=== PATIENT | female | born 1950 | race Caucasian/White ===

== ENCOUNTER 2016-04-26 18:42 | Emergency (ER) | payer MEDICARE, MEDICAID ==
[~2016-04-26] VITALS: Wt 45.4 kg
[~2016-04-26 18:42] MED LIST: ALBUTEROL SULF0.5 ML INH; AMOXICILLIN500 M2 PO; ATROVENT I0.5 MG/2.5 INH; Augmentin Xr 101 TER PO; DOXYCYCLINE HY100 M5 PO; DUONEB 3 MG/3 ML3 M1 INH; LEVO-T112 MCG PO; LEVO-T88 MCG PO; LEVOFLOXACIN500 MG PO; MEGACE400 MG/10 PO; MEGESTROL ACETAT1 OZ PO; MINOCYCLINE HC100 MG PO; MUCINEX ER600 MG PO; MULTI VITAMINS1 TAB PO; NEBULIZER; NEOMYCIN OP; NICODERM C14 MG/241 T; NICOTINE T21 MG/24 H TD; NICOTINE TRANSD1 TDM TD; OXYCODONE HCL5 MG PO; POLY B OP; PREDNISONE10 MG PO; PROAIR HFA8.5 GM INH; SPIRIVA18 MCG PO; SYMBICORT1 AE1 INH; SYNTHROID,LEV125 MCG PO; SYNTHROID,LEVO88 MCG PO; Tobrex Ophth S2.5 ML OPH; VENTOLIN H0.09 MG/AC INH; VISTARIL25 MG PO; ZITHROMAX250 MG PO; [UNRECOGNIZED DRUG - OTHER] OP
[2016-04-26] MEDS ORDERED: CEPHALEXIN500 M1 PO (19:21)
[2016-06-06] MEDS ORDERED: FLONASE ALLERG9.9 ML NAS (17:19)
[2016-06-06] MEDS ORDERED: PREDNISONE10 MG PO (17:19)
[2016-06-06] MEDS ORDERED: CLARITIN10 MG PO (17:19)
== END 2016-04-26 19:35 | disposition home or self-care (01) ==
LOC: ED 18:42
DX: T85.698A Other mechanical complication of other specified internal prosthetic devices, implants and grafts, initial encounter (principal); K94.23 Gastrostomy malfunction; Z87.891 Personal history of nicotine dependence; Z98.890 Other specified postprocedural states; Z90.49 Acquired absence of other specified parts of digestive tract; Y92.9 Unspecified place or not applicable

== ENCOUNTER 2016-08-22 17:08 | Emergency (ER) | payer MEDICARE, MEDICAID ==
[~2016-08-22] VITALS: Wt 49.9 kg
[~2016-08-22 17:08] MED LIST changes: +CEPHALEXIN500 M1 PO; +CLARITIN10 MG PO; +FLONASE ALLERG9.9 ML NAS
[2016-08-22] MEDS ORDERED: ACETAZOLAMIDE250 MG PEG (17:26)
[2016-08-22] MEDS ORDERED: CELEXA10 MG PEG (17:27)
[2016-08-22] MEDS ORDERED: FER-IN-SOL75 MG/0.6 PEG (17:27)
[2016-08-22] MEDS ORDERED: LANSOPRAZOLE30 MG PEG (17:28)
[2016-08-22] MEDS ORDERED: PREDNISONE10 MG PEG (17:32)
[2016-08-22] MEDS ORDERED: Synthroid,Lev125 MCG PEG (17:32)
[2016-08-22] MEDS ORDERED: DAILY VALUE1 EACH PEG (17:33)
[2016-08-22] MEDS ORDERED: VENLAFAXINE HYD50 MG PEG (17:33)
[2016-08-22] MEDS ORDERED: OXYGEN NAS (17:34)
[2016-08-22] MEDS ORDERED: ALBUTEROL SUL0.25 ML INH (17:34)
[2016-08-22 17:48] LABS: HEMATOCRIT 29.1 % (37.0-47.0); HEMOGLOBIN 9.5 g/dl (12.0-16.0); MEAN CELL VOLUME 95.7 fl (81.0-99.0); MEAN CORPUSCULAR HGB 31.3 pg (27.0-31.0); MEAN CORPUSCULAR HGB CONC 32.6 g/dl (33.0-37.0); MEAN PLATELET VOLUME 9.7 fl (9.6-12.3); PLATELET COUNT AUTOMATED 248 10*3/uL (130-400); RED BLOOD COUNT 3.04 10*6/uL (4.10-5.10); RED CELL DISTRI WIDTH 15.4 % (0-14.5); WHITE BLOOD COUNT 3.9 10*3/uL (4.8-10.8)
[2016-08-22 18:01] LABS: BUN 19 mg/dl (7-24); CARBON DIOXIDE 28 mmol/L (21-32); CHLORIDE 100 mmol/L (98-107); EST GLOM FILT AFRICAN AMERICAN > 60 ml/min; GLUCOSE 86 mg/dL (65-99); POTASSIUM 4.2 mmol/L (3.5-5.1); SODIUM 136 mmol/L (136-145)
[2016-08-22 18:11] LABS: BASOPHIL # 0.1 10*3/uL (0-0.1); BASOPHILS 2 % (0-1); LYMPHOCYTE # 0.2 10*3/uL (1.3-4.4); METAMYELOCYTES 1 % (0-0); MONOCYTE # 0.6 10*3/uL (0.1-1.0); NEUTROPHILS 78 % (47-73); TOTAL CELLS COUNTED 100 #CELLS
[2016-08-22 18:12] LABS: PLATELET SUFFICIENCY NORMAL (NORMAL); POLYCHROMASIA SLIGHT
== END 2016-08-22 18:50 | disposition home or self-care (01) ==
LOC: ED 17:08
PROVIDERS: Family Medicine
DX: R06.00 Dyspnea, unspecified (principal); F41.9 Anxiety disorder, unspecified; J44.1 Chronic obstructive pulmonary disease with (acute) exacerbation; E03.9 Hypothyroidism, unspecified; D64.9 Anemia, unspecified; F17.200 Nicotine dependence, unspecified, uncomplicated; Z85.21 Personal history of malignant neoplasm of larynx; Z98.890 Other specified postprocedural states; Z90.89 Acquired absence of other organs; Z79.899 Other long term (current) drug therapy

== ENCOUNTER 2016-08-25 14:50 | Emergency (ER) | payer MEDICARE, MEDICAID ==
[~2016-08-25] VITALS: Ht 152.4 cm; Wt 43.5 kg
[~2016-08-25 14:50] MED LIST changes: +ACETAZOLAMIDE250 MG PEG; +ALBUTEROL SUL0.25 ML INH; +CELEXA10 MG PEG; +DAILY VALUE1 EACH PEG; +FER-IN-SOL75 MG/0.6 PEG; +LANSOPRAZOLE30 MG PEG; +OXYGEN NAS; +PREDNISONE10 MG PEG; +Synthroid,Lev125 MCG PEG; +VENLAFAXINE HYD50 MG PEG
== END 2016-08-25 16:08 | disposition home or self-care (01) ==
LOC: ED 14:50
DX: K94.23 Gastrostomy malfunction (principal); Z87.891 Personal history of nicotine dependence; E03.9 Hypothyroidism, unspecified; F41.9 Anxiety disorder, unspecified; Z79.899 Other long term (current) drug therapy

== ENCOUNTER 2016-08-30 07:43 | Emergency (ER) | payer MEDICARE, MEDICAID ==
[~2016-08-30] VITALS: Ht 165.1 cm; Wt 43.5 kg
[2016-08-30] MEDS ORDERED: Synthroid,Lev150 MCG PO (08:02)
[2016-08-30] MEDS ORDERED: VITAMIN D31000 I1 PO (08:06)
[2016-08-30] MEDS ORDERED: CHLORHEXIDINE PO (08:08)
[2016-08-30] MEDS ORDERED: CHLORASEPTIC S177 ML MM (08:11)
== END 2016-08-30 08:39 | disposition home or self-care (01) ==
LOC: ED 07:43
DX: K94.23 Gastrostomy malfunction (principal); Z87.891 Personal history of nicotine dependence; E03.9 Hypothyroidism, unspecified; Z79.899 Other long term (current) drug therapy

== ENCOUNTER 2016-09-13 19:25 | Emergency (ER) | payer MEDICARE, MEDICAID ==
[~2016-09-13] VITALS: Ht 154.9 cm; Wt 47.6 kg
[~2016-09-13 19:25] MED LIST changes: +CHLORASEPTIC S177 ML MM; +CHLORHEXIDINE PO; +Synthroid,Lev150 MCG PO; +VITAMIN D31000 I1 PO
[2016-09-13 20:16] LABS: HEMATOCRIT 31.1 % (37.0-47.0); HEMOGLOBIN 9.5 g/dl (12.0-16.0); MEAN CORPUSCULAR HGB 29.3 pg (27.0-31.0); MEAN CORPUSCULAR HGB CONC 30.5 g/dl (33.0-37.0); MEAN PLATELET VOLUME 9.7 fl (9.6-12.3); PLATELET COUNT AUTOMATED 385 10*3/uL (130-400); RED BLOOD COUNT 3.24 10*6/uL (4.10-5.10); RED CELL DISTRI WIDTH 14.1 % (0-14.5); WHITE BLOOD COUNT 2.2 10*3/uL (4.8-10.8)
[2016-09-13 20:31] LABS: ALBUMIN 2.7 gm/dl (3.1-4.5); ALKALINE PHOSPHATASE 50 U/L (45-117); BILIRUBIN, TOTAL 0.2 mg/dl (0.2-1.0); BUN 16 mg/dl (7-24); CARBON DIOXIDE 32 mmol/L (21-32); CHLORIDE 104 mmol/L (98-107); EST GLOM FILT AFRICAN AMERICAN > 60 ml/min; GLUCOSE 88 mg/dL (65-99); POTASSIUM 4.7 mmol/L (3.5-5.1); SGOT/AST 12 IU/L (3-35); SGPT/ALT 19 U/L (12-78); SODIUM 141 mmol/L (136-145); TOTAL PROTEIN 5.6 gm/dL (6.4-8.2)
[2016-09-13 20:39] LABS: BASOPHIL # 0.1 10*3/uL (0-0.1); BASOPHILS 4 % (0-1); EOSINOPHIL # 0.1 10*3/uL (0-0.4); EOSINOPHILS 5 % (1-4); LYMPHOCYTE # 0.5 10*3/uL (1.3-4.4); NEUTROPHIL # 0.5 10*3/uL (2.3-7.9); NEUTROPHILS 23 % (47-73); TOTAL CELLS COUNTED 100 #CELLS
[2016-09-13 20:40] LABS: HYPOCHROMIA SLIGHT; PLATELET SUFFICIENCY NORMAL (NORMAL); POLYCHROMASIA SLIGHT
== END 2016-09-13 22:04 | disposition home or self-care (01) ==
LOC: ED 19:25
PROVIDERS: Nurse Practitioner Family
DX: R10.12 Left upper quadrant pain (principal); E03.9 Hypothyroidism, unspecified; F17.200 Nicotine dependence, unspecified, uncomplicated; F41.9 Anxiety disorder, unspecified; Z79.899 Other long term (current) drug therapy

== ENCOUNTER → 2016-09-14 | Outpatient (CLI) | payer MEDICARE, MEDICAID ==
--- NOTE | ~2016-09-14 | SLPPOC ---
[place], [place] BOX FOLDING MACHINE OPERATOR PLAN OF CARE NAME: BENTLEY FAGAN UNIT #: [id number] ROOM: DOCTOR: BE GEE DO Speech Language Pathology Plan of Care Page 1 1 (Initial Evaluation) of Patient Name: BENTLEY FAGAN Date: 09/14/2016 10:17 AM : 1950 SOC Date: 09/14/2016 [facility]: [facility] Provider #: [id number] Treating Clinician: KIRK Foster-VALENT[place] Referring Physician: BE GEE Medicare #: [id number] Visits From SOC: 1 Medicaid #: [id number] Onset Date Code Description Primary Diagnosis: 09/14/2016 A000.00 DIAGNOSIS FROM INTERFACE NOT FOUND IN [facility] TABLE Subjective Comments: Initial evaluation created to initiate the electronic medical record. Please see HowStuffWorks for details. Initial Level Goals Functional Limitation Reporting Swallowing G8996 - Swallowing functional limitation, current status at therapy episode outset and at reporting intervals Current Status: CJ - At least 20 percent but less than 40 percent impaired, limited or restricted G8997 - Swallowing functional limitation, projected goal status, at therapy episode outset, at reporting intervals, and at discharge or to end reporting Goal Status: CJ - At least 20 percent but less than 40 percent impaired, limited or restricted G8998 - Swallowing functional limitation, discharge status, at discharge from therapy or to end reporting Discharge Status: CJ - At least 20 percent but less than 40 percent impaired, limited or restricted 09/14/2016 10:20:12 AM BE GEE Date/Time KIRK Foster-VALENTINA Date I certify the need for these services furnished under this plan of treatment while under my care. State License #: [id number] CM:SLPPOC 1028 1028 IS THERAPY [place]
--- NOTE | ~2016-09-14 | SLPPN ---
[place], [place] ELECTRIC MELT OPERATOR PROGRESS NOTE NAME: BENTLEY FAGAN UNIT #: [id number] ROOM: DOCTOR: BE GEE DO Speech Language Pathology Treatment Note Page 1 1 of Patient Name: BENTLEY FAGAN Date: 09/14/2016 10:20 AM : 1950 SOC Date: 09/14/2016 Provider: [facility] Provider #: [id number] Treating Clinician: KIRK Foster-ELECTRIC MELT OPERATOR Referring Physician: BE Grande Date Description Code Primary Diagnosis: 09/14/2016 A000.00 DIAGNOSIS FROM INTERFACE NOT FOUND IN [facility] TABLE Time In: 09:00 AM Time Out: 10:00 AM ELECTRIC MELT OPERATOR Interventions and CPT Codes Consisted of: CPT Code Modifiers Minutes Units Laryngoscopy, flex or rigid 26962 60 1 Total Minutes: 60 Total Timed Minutes: 0 Total Untimed Minutes: 60 Total Units: 1 Total Timed Units: 0 Total Untimed Units: 1 09/14/2016 10:21:10 AM KIRK Foster-VALENTINA Date/Time State License #: [id number] CM:RICARDO 1028 1028 IS THERAPY [facility]
--- NOTE | ~2016-09-14 | PROC NOTE ---
[place], [place] PROCEDURE NOTE [id number] UNIT #: [id number] ROOM: DOCTOR: CANDYGEE BIRTHDATE: [birth year] DOS: 09/14/2016 MODIFIED BARIUM SWALLOW DOCTOR: Dr. Kenney. RADIOLOGIST: Dr. Garland. BACKGROUND INFORMATION: The patient is a 66-year-old female who is seen for modified barium swallow. This test was ordered to determine candidacy for resumption of p.o. feeding, this patient has been tube fed for about the past year. The patient has a diagnosis of laryngeal cancer. She underwent chemotherapy and radiation, which was completed last summer. She will reportedly be starting outpatient therapy. The patient underwent a prior modified barium swallow in this facility on 12/25/2015. At that time, results revealed a mild oropharyngeal dysphagia with slow mastication and pooling in the vallecula. The patient reportedly underwent other modified barium swallow studies in other facilities at this time, she remains n.p.o. Her daughter admitted that the patient does "sneak" different foods and liquids such as potato chips, candy, cake and pop. The patient is anxious to eat by mouth again. For today's assessment, the patient was alert and able to follow commands. She was confused. She exhibited a hoarse, strangled vocal quality and a congested cough at rest. Oral peripheral examination revealed edentulous status. Labial and buccal skills were within normal limits. The patient was able to protrude lateralizing depressed her tongue without difficulty extraoral elevation was impaired. The patient was able to volitionally cough and swallow. METHODS AND MATERIALS USED FOR THE EXAM: The patient was positioned in the lateral plane and the examination was viewed under fluoroscopy. The patient was presented with a variety of consistencies to assess swallowing skills including applesauce mixed with barium presented in half teaspoon amounts, barium-coated pairs presented in bite size pieces. The patient was presented with both nectar thick and thin liquid taken by cup in single sip size amounts. ORAL PHASE: The patient achieved adequate labial seal around cup and spoon with no anterior loss. Bolus formation and transit were within functional limits. Mastication of soft solids was slow. Tongue to palate contact was within normal limits. Tongue to posterior pharyngeal wall contact was mildly impaired with all consistencies. Velar functioning was within normal limits with no nasal regurgitation. PHARYNGEAL PHASE: The pharyngeal swallow occurred within a timely manner. The patient's swallow was weak in general. Laryngeal elevation was reduced with all consistencies. Epiglottic function was adequate as no penetration or aspiration occurred with any consistency given. Residue in the vallecula was noted with puree and nectar liquids. This cleared with the thin liquid. There was no residue occurring in the pyriform. [place], [place] PROCEDURE NOTE NAME: BENTLEY FAGAN UNIT #: [id number] ROOM: DOCTOR: GEE GUPTA BIRTHDATE: [birth year] ESOPHAGEAL PHASE: This phase of the swallow was not formally assessed during this examination. IMPRESSIONS AND RECOMMENDATIONS: Based upon assessment results, this patient displayed a mild oropharyngeal dysphagia characterized by slow mastication of soft solid and reduced tongue to posterior pharyngeal wall contact resulting in pooling in the vallecula with pureed solid and nectar liquids. This did clear with liquid wash. No penetration or aspiration occurred with any consistency. It is recommended that the patient receive pureed foods and thin liquids. Recommend use of safe swallow strategies such as upright positioning for all p.o. intake, small bites and sips, alternating liquids and puree and monitoring for signs and symptoms of aspiration. Recommend dysphagia therapy, focusing on strengthening exercises, implementation of safety strategies and education, it was reported that the patient will be beginning outpatient therapy this week. The patient and daughter were educated on results and recommendations and a written copy was provided as well and they verbalized understanding. Thank you very much for this referral. Should you have any questions regarding this patient, please contact the speech pathologist at [phone]. GEE GUPTA CM:PROCNOTE:PROCEDURE NOTE 1029 [id number] GEE GUPTA
--- NOTE | ~2016-09-14 | SLPIE ---
[place], [place] FREEZER TUNNEL OPERATOR INITIAL EVALUATION NAME: BENTLEY FAGAN UNIT #: [id number] ROOM: DOCTOR: BE GEE DO Speech Language Pathology Initial Evaluation Page 1 1 of Patient Name: BENTLEY FAGAN Date: 09/14/2016 10:17 AM : 1950 SOC Date: 09/14/2016 Provider: [facility] Provider #: [id number] Treating Clinician: KIRK Foster-VALENTINA Referring Physician: BE GEE Patient Information Address: [address] [place] [address] Physician: BE GEE Physician #: City, [facility], Zip: [place] [address] Occupation: Unknown # of Approved Visits: 0 Gender: Female Medicaid #: [id number] Miniature Set Designer: SHELBY PORRAS Medicare #: [id number] Rehabilitation Information / History Onset Date Code Description Primary Diagnosis: 09/14/2016 A000.00 DIAGNOSIS FROM INTERFACE NOT FOUND IN [facility] TABLE Subjective Comments: Initial evaluation created to initiate the electronic medical record. Please see [employer] for details. Clinical Findings Functional Goals Functional Limitation Reporting Swallowing G8996 - Swallowing functional limitation, current status at therapy episode outset and at reporting intervals Current Status: CJ - At least 20 percent but less than 40 percent impaired, limited or restricted G8997 - Swallowing functional limitation, projected goal status, at therapy episode outset, at reporting intervals, and at discharge or to end reporting Goal Status: CJ - At least 20 percent but less than 40 percent impaired, limited or restricted G8998 - Swallowing functional limitation, discharge status, at discharge from therapy or to end reporting Discharge Status: CJ - At least 20 percent but less than 40 percent impaired, limited or restricted 09/14/2016 10:20:12 AM RADHA Foster Date/Time [place], [place] FREEZER TUNNEL OPERATOR INITIAL EVALUATION NAME: BENTLEY FAGAN UNIT #: [id number] ROOM: DOCTOR: BE GEE DO [facility] License #: [id number] CM:SLPIE 1028 1028 IS THERAPY [place]
== END | disposition home or self-care (01) ==
LOC: RAD/SH 09:00
DX: Z51.89 Encounter for other specified aftercare (principal); C32.9 Malignant neoplasm of larynx, unspecified; R13.10 Dysphagia, unspecified

== ENCOUNTER 2016-09-20 17:46 | Inpatient (IN) | payer MEDICARE, MEDICAID ==
[~2016-09-20] VITALS: Ht 165.1 cm; Wt 45.4 kg
--- NOTE | ~2016-09-20 | CON ---
[place], [place] REPORT OF CONSULTATION NAME: BENTLEY FAGAN UNIT #: [id number] ROOM: 403 DOCTOR: AVA DELGADO ED.D) BIRTHDATE: [birth year] DOS: 09/22/2016 HISTORY OF PRESENT ILLNESS: The patient is a 66-year-old female referred by the hospitalist for an evaluation. At the present time, this patient is on the 4th floor at [facility]. This patient presently resides in [place], [place], with her daughter and 2 grandchildren. PAST MEDICAL HISTORY: Her medical history is pertinent for pneumonia, cancer of the larynx, COPD, hypothyroidism, malnutrition, and anxiety. She does have a gastrostomy tube. MEDICATIONS: Include albuterol, acetazolamide, chlorhexidine, vitamin D3, ferrous sulfate, Synthroid, multivitamin, and venlafaxine. She is oxygen dependent. This patient was awake, alert, and oriented in all 3 spheres. She states she is in [facility] and she knows the year. She has no difficulty with her memory. She does not appear to be having any active auditory or visual hallucinations or delusions. She does seem to be mildly depressed and anxious because of her multiple medical problems. She states she was a smoker, but did quit smoking. She uses no alcoholic beverages. In my opinion, this patient is competent to make informed healthcare decisions and states she is going to go back home with her daughter and grandchildren when she is discharged from the hospital. I did recommend home health nurse and possibly a home high school social science teacher to evaluate home situation. The patient indicated she had no difficulty at home whatsoever. She did ask for feeding supplements and I did relay that information to the hospitalist. DIAGNOSIS: Anxiety disorder, not otherwise specified. RECOMMENDATIONS: In my opinion, this patient would probably benefit from home health services. Thank you very much for this consult. AVA DELGADO ED.D CM:CONSTR:REPORT OF CONSULTATION 0911 09/22/16 0929 interface
[2016-09-20 17:49] VITALS: BP 120/57
[2016-09-20 18:15] LABS: BASO # 0.1 10*3/uL (0.0-0.1); BASO % 0.4 % (0.0-1.0); EOS # 0.1 10*3/uL (0.0-0.4); EOS % 0.4 % (1.0-4.0); HEMATOCRIT 34.7 % (37.0-47.0); HEMOGLOBIN 10.8 g/dl (12.0-16.0); IG # 0.2 10*3/uL (0.0-0.1); LYMPH # 0.4 10*3/uL (1.3-4.4); LYMPH % 3.5 % (27.0-41.0); MEAN CELL VOLUME 94.3 fl (81.0-99.0); MEAN CORPUSCULAR HGB 29.3 pg (27.0-31.0); MEAN CORPUSCULAR HGB CONC 31.1 g/dl (33.0-37.0); MONO # 1.1 10*3/uL (0.1-1.0); MONO % 8.6 % (3.0-9.0); NEUT # 10.7 10*3/uL (2.3-7.9); NEUT % 85.2 % (47.0-73.0); PLATELET COUNT AUTOMATED 532 10*3/uL (130-400); RED BLOOD COUNT 3.68 10*6/uL (4.10-5.10); RED CELL DISTRI WIDTH 14.1 % (0-14.5); WHITE BLOOD COUNT 12.6 10*3/uL (4.8-10.8)
[2016-09-20 18:26] LABS: PROTHROMBIN TIME 10.5 SECONDS (9.0-12.4)
[2016-09-20 18:32] LABS: ALBUMIN 2.8 gm/dl (3.1-4.5); ALKALINE PHOSPHATASE 57 U/L (45-117); BILIRUBIN, TOTAL 0.2 mg/dl (0.2-1.0); BUN 12 mg/dl (7-24); CARBON DIOXIDE 33 mmol/L (21-32); CHLORIDE 100 mmol/L (98-107); EST GLOM FILT AFRICAN AMERICAN > 60 ml/min; GLUCOSE 78 mg/dL (65-99); POTASSIUM 3.9 mmol/L (3.5-5.1); SGOT/AST 13 IU/L (3-35); SGPT/ALT 14 U/L (12-78); SODIUM 141 mmol/L (136-145); TOTAL PROTEIN 6.1 gm/dL (6.4-8.2)
[2016-09-20 18:33] LABS: TROPONIN I < 0.015 ng/ml (<0.045)
[2016-09-20 19:15] VITALS: BP 174/74
[2016-09-20 20:09] VITALS: BP 140/74
[2016-09-20 21:00] VITALS: BP 129/64
[2016-09-21] VITALS: BP 127/73; BP 129/64
[2016-09-21 06:43] LABS: HEMATOCRIT 32.7 % (37.0-47.0); HEMOGLOBIN 9.8 g/dl (12.0-16.0); MEAN CELL VOLUME 96.7 fl (81.0-99.0); MEAN PLATELET VOLUME 9.3 fl (9.6-12.3); PLATELET COUNT AUTOMATED 502 10*3/uL (130-400); RED BLOOD COUNT 3.38 10*6/uL (4.10-5.10); RED CELL DISTRI WIDTH 14.2 % (0-14.5); WHITE BLOOD COUNT 11.2 10*3/uL (4.8-10.8)
[2016-09-21 07:10] LABS: LYMPHOCYTE # 0.1 10*3/uL (1.3-4.4); METAMYELOCYTES 1 % (0-0); MYELOCYTES 2 % (0-0); NEUTROPHIL # 10.8 10*3/uL (2.3-7.9); NEUTROPHILS 96 % (47-73); TOTAL CELLS COUNTED 100 #CELLS
[2016-09-21 07:11] LABS: OVALOCYTES FEW; PLATELET SUFFICIENCY HIGH (NORMAL); TOXIC GRANULATION SLIGHT
[2016-09-21 07:15] LABS: CARBON DIOXIDE 34 mmol/L (21-32); CHLORIDE 103 mmol/L (98-107); POTASSIUM 4.4 mmol/L (3.5-5.1); SODIUM 143 mmol/L (136-145)
[2016-09-21 07:31] LABS: BUN 8 mg/dl (7-24); CHOLESTEROL 102 mg/dL (<200); EST GLOM FILT AFRICAN AMERICAN > 60 ml/min; FREE T4 0.74 ng/dl (0.76-1.46); GLUCOSE 116 mg/dL (65-99); HDL CHOLESTEROL 51 mg/dl (40-60); LDL CHOLESTEROL 40 mg/dL (9-159); MAGNESIUM 2.3 mg/dL (1.5-2.1); TRIGLYCERIDES 54 mg/dl (<150); VLDL CHOLESTEROL 11 mg/dL (6-40)
[2016-09-21 07:33] LABS: VITAMIN D, 25-HYDROXY 19.3 ng/mL (30-100)
[2016-09-21 07:37] LABS: FOLIC ACID > 24.00 ng/mL (>5.38)
[2016-09-21 08:00] VITALS: BP 113/60
[2016-09-21 12:00] VITALS: BP 131/58
[2016-09-21 16:00] VITALS: BP 130/61
[2016-09-21 20:00] VITALS: BP 138/51
[2016-09-22] VITALS: BP 144/86
[2016-09-22 06:30] LABS: HEMATOCRIT 31.5 % (37.0-47.0); HEMOGLOBIN 9.4 g/dl (12.0-16.0); MEAN CELL VOLUME 98.1 fl (81.0-99.0); MEAN CORPUSCULAR HGB 29.3 pg (27.0-31.0); MEAN CORPUSCULAR HGB CONC 29.8 g/dl (33.0-37.0); MEAN PLATELET VOLUME 9.4 fl (9.6-12.3); PLATELET COUNT AUTOMATED 499 10*3/uL (130-400); RED BLOOD COUNT 3.21 10*6/uL (4.10-5.10); RED CELL DISTRI WIDTH 14.3 % (0-14.5); WHITE BLOOD COUNT 23.6 10*3/uL (4.8-10.8)
[2016-09-22 06:57] LABS: LYMPHOCYTE # 0.2 10*3/uL (1.3-4.4); MONOCYTE # 0.2 10*3/uL (0.1-1.0); NEUTROPHIL # 23.1 10*3/uL (2.3-7.9); NEUTROPHILS 98 % (47-73); PLATELET SUFFICIENCY HIGH (NORMAL); POLYCHROMASIA SLIGHT; TOTAL CELLS COUNTED 100 #CELLS
[2016-09-22 08:00] VITALS: BP 132/69
[2016-09-22 12:00] VITALS: BP 151/71
[2016-09-22 16:00] VITALS: BP 152/76
[2016-09-22 20:00] VITALS: BP 141/74
[2016-09-23] VITALS: BP 141/65
[2016-09-23 06:10] LABS: HEMATOCRIT 31.1 % (37.0-47.0); HEMOGLOBIN 9.7 g/dl (12.0-16.0); MEAN CORPUSCULAR HGB 29.6 pg (27.0-31.0); MEAN CORPUSCULAR HGB CONC 31.2 g/dl (33.0-37.0); MEAN PLATELET VOLUME 9.3 fl (9.6-12.3); PLATELET COUNT AUTOMATED 476 10*3/uL (130-400); RED BLOOD COUNT 3.28 10*6/uL (4.10-5.10); RED CELL DISTRI WIDTH 14.3 % (0-14.5); WHITE BLOOD COUNT 15.5 10*3/uL (4.8-10.8)
[2016-09-23 06:34] LABS: MEAN CELL VOLUME 94.8 fl (81.0-99.0)
[2016-09-23 07:13] LABS: LYMPHOCYTE # 0.5 10*3/uL (1.3-4.4); MONOCYTE # 0.3 10*3/uL (0.1-1.0); NEUTROPHIL # 14.6 10*3/uL (2.3-7.9); NEUTROPHILS 94 % (47-73); PROMYELOCYTES 1 % (0-0); TOTAL CELLS COUNTED 100 #CELLS
[2016-09-23 07:14] LABS: PLATELET SUFFICIENCY HIGH (NORMAL); POLYCHROMASIA SLIGHT; TOXIC GRANULATION SLIGHT
[2016-09-23 08:00] VITALS: BP 150/63
[2016-09-23 12:00] VITALS: BP 133/76
[2016-09-23 16:00] VITALS: BP 131/65
[2016-09-23 20:00] VITALS: BP 128/64
[2016-09-24] VITALS: BP 105/80
[2016-09-24 06:22] LABS: HEMATOCRIT 34.5 % (37.0-47.0); HEMOGLOBIN 10.5 g/dl (12.0-16.0); MEAN CELL VOLUME 96.4 fl (81.0-99.0); MEAN CORPUSCULAR HGB 29.3 pg (27.0-31.0); MEAN CORPUSCULAR HGB CONC 30.4 g/dl (33.0-37.0); MEAN PLATELET VOLUME 8.8 fl (9.6-12.3); PLATELET COUNT AUTOMATED 484 10*3/uL (130-400); RED BLOOD COUNT 3.58 10*6/uL (4.10-5.10); RED CELL DISTRI WIDTH 14.3 % (0-14.5); WHITE BLOOD COUNT 14.6 10*3/uL (4.8-10.8)
[2016-09-24 06:53] LABS: EST GLOM FILT AFRICAN AMERICAN > 60 ml/min
[2016-09-24 07:07] LABS: LYMPHOCYTE # 0.4 10*3/uL (1.3-4.4); MONOCYTE # 0.7 10*3/uL (0.1-1.0); MYELOCYTES 3 % (0-0); NEUTROPHILS 89 % (47-73); TOTAL CELLS COUNTED 100 #CELLS
[2016-09-24 07:08] LABS: PLATELET SUFFICIENCY HIGH (NORMAL); POLYCHROMASIA SLIGHT; TEAR DROP CELLS FEW
[2016-09-24 08:00] VITALS: BP 124/68
[2016-09-24 12:00] VITALS: BP 134/71
[2016-09-24 16:48] VITALS: BP 144/69
[2016-09-24 20:00] VITALS: BP 142/77
[2016-09-25] VITALS: BP 152/83
[2016-09-25 07:36] LABS: HEMOGLOBIN 9.9 g/dl (12.0-16.0); MEAN CELL VOLUME 96.5 fl (81.0-99.0); MEAN CORPUSCULAR HGB 28.9 pg (27.0-31.0); MEAN PLATELET VOLUME 9.2 fl (9.6-12.3); PLATELET COUNT AUTOMATED 463 10*3/uL (130-400); RED BLOOD COUNT 3.42 10*6/uL (4.10-5.10); RED CELL DISTRI WIDTH 14.6 % (0-14.5)
[2016-09-25 07:55] LABS: LYMPHOCYTE # 0.3 10*3/uL (1.3-4.4); MONOCYTE # 0.5 10*3/uL (0.1-1.0); NEUTROPHIL # 16.2 10*3/uL (2.3-7.9); NEUTROPHILS 95 % (47-73); PLATELET SUFFICIENCY HIGH (NORMAL); TOTAL CELLS COUNTED 100 #CELLS
[2016-09-25 07:58] LABS: BUN 10 mg/dl (7-24); CARBON DIOXIDE 36 mmol/L (21-32); CHLORIDE 102 mmol/L (98-107); EST GLOM FILT AFRICAN AMERICAN > 60 ml/min; GLUCOSE 90 mg/dL (65-99); POTASSIUM 4.3 mmol/L (3.5-5.1); SODIUM 142 mmol/L (136-145)
[2016-09-25 08:00] VITALS: BP 142/80
[2016-09-25 12:00] VITALS: BP 138/68
[2016-09-25] MEDS ORDERED: PREDNISONE50 MG PO (12:16)
[2016-09-25] MEDS ORDERED: LEVAQUIN750 M1 PO (12:16)
== END 2016-09-25 12:40 | disposition home or self-care (01) | DRG 177 ==
LOC: ED 17:46 → EDHOLD 19:19 → 4E 19:19
PROVIDERS: Internal Medicine; Internal Medicine Hospice and Palliative Medicine; Physician Assistant
DX: J69.0 Pneumonitis due to inhalation of food and vomit (principal); E43 Unspecified severe protein-calorie malnutrition; J96.10 Chronic respiratory failure, unspecified whether with hypoxia or hypercapnia; E67.8 Other specified hyperalimentation; Z99.81 Dependence on supplemental oxygen; R13.10 Dysphagia, unspecified; J44.9 Chronic obstructive pulmonary disease, unspecified; Z68.1 Body mass index [BMI] 19.9 or less, adult; F41.9 Anxiety disorder, unspecified; E03.9 Hypothyroidism, unspecified; D72.825 Bandemia; D47.3 Essential (hemorrhagic) thrombocythemia; R73.9 Hyperglycemia, unspecified; E83.41 Hypermagnesemia; D64.9 Anemia, unspecified; Z87.891 Personal history of nicotine dependence; Z82.49 Family history of ischemic heart disease and other diseases of the circulatory system; Z79.51 Long term (current) use of inhaled steroids; Z79.899 Other long term (current) drug therapy; T66.XXXS Radiation sickness, unspecified, sequela

== ENCOUNTER 2016-09-29 10:21 | Inpatient (IN) | payer MEDICARE, MEDICAID ==
[~2016-09-29] VITALS: Ht 162.5 cm; Wt 38.6 kg
[~2016-09-29 10:21] MED LIST changes: +LEVAQUIN750 M1 PO; +PREDNISONE50 MG PO
[2016-09-29 10:39] VITALS: BP 111/92
[2016-09-29 11:08] VITALS: BP 120/60
[2016-09-29 11:11] LABS: BASO % 0.4 % (0.0-1.0); EOS # 0.1 10*3/uL (0.0-0.4); EOS % 1.1 % (1.0-4.0); HEMATOCRIT 37.2 % (37.0-47.0); HEMOGLOBIN 11.3 g/dl (12.0-16.0); IG # 0.1 10*3/uL (0.0-0.1); LYMPH # 0.4 10*3/uL (1.3-4.4); LYMPH % 5.4 % (27.0-41.0); MEAN CELL VOLUME 94.9 fl (81.0-99.0); MEAN CORPUSCULAR HGB 28.8 pg (27.0-31.0); MEAN CORPUSCULAR HGB CONC 30.4 g/dl (33.0-37.0); MEAN PLATELET VOLUME 9.2 fl (9.6-12.3); MONO # 0.6 10*3/uL (0.1-1.0); MONO % 6.8 % (3.0-9.0); NEUT # 6.9 10*3/uL (2.3-7.9); NEUT % 85.4 % (47.0-73.0); PLATELET COUNT AUTOMATED 543 10*3/uL (130-400); RED BLOOD COUNT 3.92 10*6/uL (4.10-5.10); RED CELL DISTRI WIDTH 14.6 % (0-14.5); WHITE BLOOD COUNT 8.1 10*3/uL (4.8-10.8)
[2016-09-29 11:25] LABS: INTERNATIONAL NORM RATIO 0.9 (2.0-3.5)
[2016-09-29 11:27] LABS: ALBUMIN 2.9 gm/dl (3.1-4.5); ALKALINE PHOSPHATASE 55 U/L (45-117); BILIRUBIN, TOTAL 0.2 mg/dl (0.2-1.0); BUN 14 mg/dl (7-24); C-REACTIVE PROTEIN 0.72 MG/DL (0-0.3); CARBON DIOXIDE 34 mmol/L (21-32); CHLORIDE 104 mmol/L (98-107); CKMB 0.7 ng/ml (0.5-3.6); CPK 25 U/L (26-192); EST GLOM FILT AFRICAN AMERICAN > 60 ml/min; GLUCOSE 86 mg/dL (65-99); MAGNESIUM 2.2 mg/dL (1.5-2.1); POTASSIUM 4.1 mmol/L (3.5-5.1); SGOT/AST 12 IU/L (3-35); SGPT/ALT 16 U/L (12-78); SODIUM 143 mmol/L (136-145); TOTAL PROTEIN 6.3 gm/dL (6.4-8.2)
[2016-09-29 11:31] LABS: TROPONIN I < 0.015 ng/ml (<0.045)
[2016-09-29 14:30] VITALS: BP 115/81
[2016-09-29 16:00] VITALS: BP 121/68
[2016-09-29 20:04] VITALS: BP 108/64
[2016-09-30] VITALS: BP 119/54
[2016-09-30 06:22] LABS: BASO % 0.3 % (0.0-1.0); EOS # 0.1 10*3/uL (0.0-0.4); EOS % 0.7 % (1.0-4.0); HEMATOCRIT 32.6 % (37.0-47.0); IG # 0.1 10*3/uL (0.0-0.1); LYMPH # 0.4 10*3/uL (1.3-4.4); LYMPH % 4.6 % (27.0-41.0); MEAN CELL VOLUME 96.2 fl (81.0-99.0); MEAN CORPUSCULAR HGB 29.5 pg (27.0-31.0); MEAN CORPUSCULAR HGB CONC 30.7 g/dl (33.0-37.0); MEAN PLATELET VOLUME 9.4 fl (9.6-12.3); MONO # 0.6 10*3/uL (0.1-1.0); MONO % 6.6 % (3.0-9.0); NEUT # 7.5 10*3/uL (2.3-7.9); NEUT % 87.1 % (47.0-73.0); PLATELET COUNT AUTOMATED 508 10*3/uL (130-400); RED BLOOD COUNT 3.39 10*6/uL (4.10-5.10); RED CELL DISTRI WIDTH 14.5 % (0-14.5); WHITE BLOOD COUNT 8.6 10*3/uL (4.8-10.8)
[2016-09-30 06:49] LABS: BUN 15 mg/dl (7-24); CARBON DIOXIDE 34 mmol/L (21-32); CHLORIDE 104 mmol/L (98-107); EST GLOM FILT AFRICAN AMERICAN > 60 ml/min; GLUCOSE 80 mg/dL (65-99); SODIUM 143 mmol/L (136-145)
[2016-09-30 08:00] VITALS: BP 114/56
[2016-09-30 12:00] VITALS: BP 119/54
[2016-09-30 16:00] VITALS: BP 129/67
[2016-09-30 20:00] VITALS: BP 120/64
[2016-10-01] VITALS: BP 108/60
[2016-10-01 08:00] VITALS: BP 141/68
[2016-10-01 12:00] VITALS: BP 130/73
[2016-10-01 16:00] VITALS: BP 141/66
[2016-10-01 20:00] VITALS: BP 114/57
[2016-10-02] VITALS: BP 120/77
[2016-10-02 08:00] VITALS: BP 107/57
[2016-10-02 12:00] VITALS: BP 139/65
[2016-10-02 16:00] VITALS: BP 120/63
[2016-10-02] MEDS ORDERED: CLEOCIN HCL150 MG PO (16:01)
[2016-10-02] MEDS ORDERED: DUONEB 3 MG/3 ML3 M1 NEB (16:01)
== END 2016-10-02 16:52 | disposition other institution (70) | DRG 178 ==
LOC: ED 10:21 → EDHOLD 12:34 → 5E 12:34
PROVIDERS: Emergency Medicine; Internal Medicine
DX: J69.0 Pneumonitis due to inhalation of food and vomit (principal); E44.0 Moderate protein-calorie malnutrition; J96.10 Chronic respiratory failure, unspecified whether with hypoxia or hypercapnia; E67.8 Other specified hyperalimentation; R13.10 Dysphagia, unspecified; E88.09 Other disorders of plasma-protein metabolism, not elsewhere classified; Z99.81 Dependence on supplemental oxygen; Z68.1 Body mass index [BMI] 19.9 or less, adult; E55.9 Vitamin D deficiency, unspecified; D47.3 Essential (hemorrhagic) thrombocythemia; J44.9 Chronic obstructive pulmonary disease, unspecified; F41.9 Anxiety disorder, unspecified; E03.9 Hypothyroidism, unspecified; D64.9 Anemia, unspecified; R79.82 Elevated C-reactive protein (CRP); Z85.21 Personal history of malignant neoplasm of larynx; Z87.891 Personal history of nicotine dependence; Z82.49 Family history of ischemic heart disease and other diseases of the circulatory system; Z84.89 Family history of other specified conditions; Z79.899 Other long term (current) drug therapy

== ENCOUNTER 2016-10-06 18:05 | Emergency (ER) | payer MEDICARE, MEDICAID ==
[~2016-10-06] VITALS: Ht 165.1 cm; Wt 42.6 kg
[~2016-10-06 18:05] MED LIST changes: +CLEOCIN HCL150 MG PO; +DUONEB 3 MG/3 ML3 M1 NEB
== END 2016-10-06 20:01 ==
LOC: ED 18:05
DX: K94.23 Gastrostomy malfunction (principal); E03.9 Hypothyroidism, unspecified; E55.9 Vitamin D deficiency, unspecified; J44.9 Chronic obstructive pulmonary disease, unspecified; Z87.891 Personal history of nicotine dependence; Z98.890 Other specified postprocedural states; Z79.899 Other long term (current) drug therapy

== ENCOUNTER 2016-10-18 12:59 | Emergency (ER) | payer MEDICARE, MEDICAID ==
[~2016-10-18] VITALS: Ht 165.1 cm; Wt 45.4 kg
== END 2016-10-18 15:10 | disposition other institution (70) ==
LOC: ED 12:59
DX: K94.23 Gastrostomy malfunction (principal); Z87.891 Personal history of nicotine dependence; Z98.890 Other specified postprocedural states; Z79.899 Other long term (current) drug therapy

== ENCOUNTER → 2016-11-06 | Outpatient (CLI) | payer MEDICARE, MEDICAID | END | disposition home or self-care (01) | LOC: RAD 10:15 | DX: Z11.2 Encounter for screening for other bacterial diseases (principal); J44.9 Chronic obstructive pulmonary disease, unspecified; R09.89 Other specified symptoms and signs involving the circulatory and respiratory systems; R49.0 Dysphonia; T17.308A Unspecified foreign body in larynx causing other injury, initial encounter; S29.9XXA Unspecified injury of thorax, initial encounter; W19.XXXA Unspecified fall, initial encounter; X58.XXXA Exposure to other specified factors, initial encounter; Y93.89 Activity, other specified; Y92.89 Other specified places as the place of occurrence of the external cause; Y99.8 Other external cause status ==

== ENCOUNTER 2017-02-14 18:44 | Inpatient (IN) | payer MEDICARE, MEDICAID ==
[~2017-02-14] VITALS: Ht 165.1 cm; Wt 42.2 kg
[2017-02-14 18:49] VITALS: BP 135/97
[2017-02-14 19:29] LABS: BASO % 0.2 % (0.0-1.0); HEMATOCRIT 33.3 % (37.0-47.0); HEMOGLOBIN 9.8 g/dl (12.0-16.0); LYMPH # 0.2 10*3/uL (1.3-4.4); LYMPH % 1.8 % (27.0-41.0); MEAN CELL VOLUME 81.8 fl (81.0-99.0); MEAN CORPUSCULAR HGB 24.1 pg (27.0-31.0); MEAN CORPUSCULAR HGB CONC 29.4 g/dl (33.0-37.0); MEAN PLATELET VOLUME 10.1 fl (9.6-12.3); MONO % 8.1 % (3.0-9.0); NEUT # 10.6 10*3/uL (2.3-7.9); NEUT % 89.6 % (47.0-73.0); PLATELET COUNT AUTOMATED 489 10*3/uL (130-400); RED BLOOD COUNT 4.07 10*6/uL (4.10-5.10); RED CELL DISTRI WIDTH 14.7 % (0-14.5); WHITE BLOOD COUNT 11.8 10*3/uL (4.8-10.8)
[2017-02-14 19:46] LABS: ALKALINE PHOSPHATASE 65 U/L (45-117); BUN 17 mg/dl (7-24); CHLORIDE 100 mmol/L (98-107); CREATININE 0.64 mg/dL (0.55-1.02); POTASSIUM 4.4 mmol/L (3.5-5.1); SGOT/AST 7 IU/L (3-35); SGPT/ALT 13 U/L (12-78); SODIUM 139 mmol/L (136-145); TOTAL PROTEIN 6.9 gm/dL (6.4-8.2)
[2017-02-14 19:50] LABS: TROPONIN I < 0.015 ng/ml (<0.045)
[2017-02-14 20:02] VITALS: BP 158/70
[2017-02-14 22:20] VITALS: BP 128/59
[2017-02-15 06:15] LABS: BASO % 0.2 % (0.0-1.0); EOS % 0.3 % (1.0-4.0); HEMATOCRIT 27.6 % (37.0-47.0); HEMOGLOBIN 7.9 g/dl (12.0-16.0); LYMPH # 0.4 10*3/uL (1.3-4.4); LYMPH % 3.5 % (27.0-41.0); MEAN CELL VOLUME 83.9 fl (81.0-99.0); MEAN CORPUSCULAR HGB CONC 28.6 g/dl (33.0-37.0); MEAN PLATELET VOLUME 10.3 fl (9.6-12.3); MONO # 1.1 10*3/uL (0.1-1.0); MONO % 10.2 % (3.0-9.0); NEUT % 85.4 % (47.0-73.0); PLATELET COUNT AUTOMATED 358 10*3/uL (130-400); RED BLOOD COUNT 3.29 10*6/uL (4.10-5.10); RED CELL DISTRI WIDTH 14.9 % (0-14.5); WHITE BLOOD COUNT 10.5 10*3/uL (4.8-10.8)
[2017-02-15 06:18] LABS: ACT PARTIAL THROMBO TIME 29.7 SECONDS (20.8-31.5); INTERNATIONAL NORM RATIO 1.1 (2.0-3.5)
[2017-02-15 06:29] LABS: BUN 11 mg/dl (7-24); CHLORIDE 109 mmol/L (98-107); CHOLESTEROL 72 mg/dL (<200); CREATININE 0.56 mg/dL (0.55-1.02); PHOSPHOROUS 3.6 mg/dL (2.5-4.9); POTASSIUM 3.7 mmol/L (3.5-5.1); SGOT/AST 10 IU/L (3-35); SGPT/ALT 15 U/L (12-78); SODIUM 144 mmol/L (136-145); TRIGLYCERIDES 59 mg/dl (<150); VLDL CHOLESTEROL 12 mg/dL (6-40)
[2017-02-15 06:36] LABS: ALKALINE PHOSPHATASE 55 U/L (45-117); FREE T4 1.81 ng/dl (0.76-1.46); HDL CHOLESTEROL 27 mg/dl (40-60); LDL CHOLESTEROL 33 mg/dL (9-159)
[2017-02-15 06:38] LABS: THYROID STIM HORMONE (HS) < 0.005 uIU/ml (0.358-4.75)
[2017-02-15 07:01] LABS: VITAMIN D, 25-HYDROXY 16.1 ng/mL (30-100)
[2017-02-15 08:00] VITALS: BP 117/56
[2017-02-15 12:00] VITALS: BP 136/63
[2017-02-15 16:00] VITALS: BP 152/64
[2017-02-15 20:08] VITALS: BP 143/51
[2017-02-16] VITALS: BP 131/62
[2017-02-16 06:06] LABS: BASO % 0.2 % (0.0-1.0); EOS # 0.2 10*3/uL (0.0-0.4); EOS % 2.5 % (1.0-4.0); HEMATOCRIT 28.7 % (37.0-47.0); HEMOGLOBIN 8.1 g/dl (12.0-16.0); LYMPH # 0.4 10*3/uL (1.3-4.4); LYMPH % 4.8 % (27.0-41.0); MEAN CELL VOLUME 84.9 fl (81.0-99.0); MEAN CORPUSCULAR HGB CONC 28.2 g/dl (33.0-37.0); MEAN PLATELET VOLUME 9.8 fl (9.6-12.3); MONO # 0.7 10*3/uL (0.1-1.0); MONO % 8.9 % (3.0-9.0); NEUT % 83.1 % (47.0-73.0); PLATELET COUNT AUTOMATED 427 10*3/uL (130-400); RED BLOOD COUNT 3.38 10*6/uL (4.10-5.10); RED CELL DISTRI WIDTH 15.1 % (0-14.5); WHITE BLOOD COUNT 8.4 10*3/uL (4.8-10.8)
[2017-02-16 06:39] LABS: BUN 5 mg/dl (7-24); CHLORIDE 107 mmol/L (98-107); CREATININE 0.48 mg/dL (0.55-1.02); POTASSIUM 3.8 mmol/L (3.5-5.1); SODIUM 142 mmol/L (136-145)
[2017-02-16 08:00] VITALS: BP 132/58
[2017-02-16 12:00] VITALS: BP 128/52
[2017-02-16 16:00] VITALS: BP 140/61
[2017-02-16 20:00] VITALS: BP 142/62
[2017-02-17] VITALS: BP 121/58
[2017-02-17 06:51] LABS: BASO % 0.3 % (0.0-1.0); EOS # 0.3 10*3/uL (0.0-0.4); HEMATOCRIT 26.7 % (37.0-47.0); HEMOGLOBIN 7.7 g/dl (12.0-16.0); LYMPH # 0.4 10*3/uL (1.3-4.4); LYMPH % 5.6 % (27.0-41.0); MEAN CELL VOLUME 82.7 fl (81.0-99.0); MEAN CORPUSCULAR HGB 23.8 pg (27.0-31.0); MEAN CORPUSCULAR HGB CONC 28.8 g/dl (33.0-37.0); MEAN PLATELET VOLUME 9.8 fl (9.6-12.3); MONO # 0.5 10*3/uL (0.1-1.0); MONO % 7.8 % (3.0-9.0); NEUT # 5.7 10*3/uL (2.3-7.9); NEUT % 81.9 % (47.0-73.0); PLATELET COUNT AUTOMATED 412 10*3/uL (130-400); RED BLOOD COUNT 3.23 10*6/uL (4.10-5.10); RED CELL DISTRI WIDTH 14.8 % (0-14.5); WHITE BLOOD COUNT 6.9 10*3/uL (4.8-10.8)
[2017-02-17 07:25] LABS: BUN 6 mg/dl (7-24); CHLORIDE 105 mmol/L (98-107); CREATININE 0.55 mg/dL (0.55-1.02); POTASSIUM 4.2 mmol/L (3.5-5.1); SODIUM 143 mmol/L (136-145)
[2017-02-17 08:00] VITALS: BP 112/60; BP 116/52
[2017-02-17] MEDS ORDERED: LEVAQUIN750 M1 PO (11:49)
[2017-02-17] MEDS ORDERED: VITAMIN D32000 UNI1 PO (11:52)
[2017-02-17] MEDS ORDERED: GUAIFENESIN600 MG PO (11:52)
[2017-02-17 12:00] VITALS: BP 134/64; BP 140/70
== END 2017-02-17 13:30 | disposition home or self-care (01) | DRG 871 ==
LOC: ED 18:44 → EDHOLD 21:14 → 4E 21:14
PROVIDERS: Hospitalist; Internal Medicine Nephrology; Physician Assistant; ADMIT Internal Medicine
DX: A41.9 Sepsis, unspecified organism (principal); J15.6 Pneumonia due to other Gram-negative bacteria; E43 Unspecified severe protein-calorie malnutrition; J96.10 Chronic respiratory failure, unspecified whether with hypoxia or hypercapnia; E67.8 Other specified hyperalimentation; J44.0 Chronic obstructive pulmonary disease with (acute) lower respiratory infection; Z68.1 Body mass index [BMI] 19.9 or less, adult; D64.9 Anemia, unspecified; E03.9 Hypothyroidism, unspecified; F41.9 Anxiety disorder, unspecified; D47.3 Essential (hemorrhagic) thrombocythemia; E55.9 Vitamin D deficiency, unspecified; Z87.891 Personal history of nicotine dependence; Z82.49 Family history of ischemic heart disease and other diseases of the circulatory system; Z87.01 Personal history of pneumonia (recurrent); Z85.21 Personal history of malignant neoplasm of larynx; Z92.3 Personal history of irradiation; Z79.899 Other long term (current) drug therapy; Z93.1 Gastrostomy status

== ENCOUNTER 2017-03-13 01:47 | Inpatient (IN) | payer MEDICARE, MEDICAID ==
[~2017-03-13] VITALS: Ht 167.6 cm; Wt 43.2 kg
--- NOTE | ~2017-03-13 | PROC NOTE ---
[place], [place] PROCEDURE NOTE [id number] UNIT #: [id number] ROOM: 529 DOCTOR: GEE GUPTA BIRTHDATE: [birth year] DOS: 03/17/2017 MODIFIED BARIUM SWALLOW LOCATION: [facility], room 529, bed 1. DOCTOR: Bunny Lenz DO RADIOLOGIST: Dr. Rodríguez. BACKGROUND INFORMATION: The patient is a 66-year-old female who was seen for modified barium swallow. This test was ordered to rule out aspiration. The patient is admitted to the hospital with pneumonia. Further medical history includes thyroid cancer, throat cancer, chemotherapy and radiation which were completed last summer, COPD and dyspnea. The patient had been tube fed in the past. She does still have the tube present and reports that she only uses it sometimes. She currently receives a soft diet and nectar thick liquids. This patient is known to this department from past therapy. She has been seen in the past and recommended modified diet. She has not always been compliant with it. A prior modified barium swallow had been conducted on 09/14/2016. At that time, she displayed pooling in the pharynx, slow mastication. She was recommended a pureed diet and thin liquids. For today's assessment, the patient was alert and able to follow commands. Vocal quality was hoarse. The patient was receiving oxygen by nasal cannula. Congested respirations were heard. Oral peripheral examination revealed edentulous status. Lingual, labial and buccal skills were mildly impaired in strength and range of motion. Volitional swallow and cough were weak. METHODS AND MATERIALS USED FOR THE EXAM: The patient was positioned in the lateral plane and the exam was viewed under fluoroscopy. The patient was presented with a variety of consistencies to assess swallowing skills including applesauce mixed with barium presented in half teaspoon amounts, barium-coated banana presented in bite size piece and both thin and nectar thick barium taken by cup in single sip size amounts. ORAL PHASE: The patient achieved adequate labial seal around cup and spoon with no anterior loss. Bolus formation and transit were adequate. Mastication of soft solids was slow, but functional. Tongue to palate contact was within normal limits. Tongue to posterior pharyngeal wall contact was mild to moderately impaired with all consistencies given. Velar functioning was within normal limits with no nasal regurgitation. PHARYNGEAL PHASE: The pharyngeal swallow occurred within a timely manner. The swallow was weak and reduced in hyolaryngeal elevation. Following the swallow, residue was observed in the vallecula with pureed, soft solid and nectar thick consistencies. The patient was aware of the residue and attempted to re-swallow to clear the residue. This was not effective due to her weak swallow. The patient was given thin liquid in an attempt to clear residue; however penetration during the swallow did result. Chin tuck was attempted and again resulted in penetration. [place], [place] PROCEDURE NOTE NAME: BENTLEY FAGAN UNIT #: [id number] ROOM: 529 DOCTOR: GEE GUPTA BIRTHDATE: [birth year] ESOPHAGEAL PHASE: This phase of the swallow was not formally assessed during this examination. IMPRESSIONS AND RECOMMENDATIONS: Based upon assessment results, this 66-year-old patient displayed a moderate oropharyngeal dysphagia. Tongue to posterior pharyngeal wall contact was impaired resulting in pooling in the vallecula with puree, soft solid and nectar liquids. The patient was not able to clear this residue with subsequent swallow. This did clear with thin liquids, however, penetration during the swallow resulted. Recommend soft diet (very soft items that are easier to chew due to edentulous status) and nectar thick liquids. Recommend safe swallow strategies such as upright positioning for meals, small bites and sips, alternating thick liquids and solids and extra swallows after every couple of bites. Follow up therapy is recommended focusing on pharyngeal strengthening exercises to improve safety of swallow. The patient has been tube fed in the past, but does want to continue to eat by mouth. The patient admitted that she often ate during the time she was n.p.o. The patient is known from past therapy and can be noncompliant. She was fully educated on the reasoning for use of safe swallow strategies as well as aspiration risks. She verbalized understanding. Her nurse was also educated and verbalized understanding. Thank you very much for this referral. Should you have any questions regarding this patient, please contact the speech pathologist at [phone]. GEE GUPTA CM:PROCNOTE:PROCEDURE NOTE 0953 1033 GEE GUPTA
[~2017-03-13 01:47] MED LIST changes: +GUAIFENESIN600 MG PO; +VITAMIN D32000 UNI1 PO
[2017-03-13 02:03] VITALS: BP 144/65
[2017-03-13 02:43] LABS: HEMATOCRIT 30.5 % (37.0-47.0); HEMOGLOBIN 8.9 g/dl (12.0-16.0); MEAN CELL VOLUME 79.8 fl (81.0-99.0); MEAN CORPUSCULAR HGB 23.3 pg (27.0-31.0); MEAN CORPUSCULAR HGB CONC 29.2 g/dl (33.0-37.0); MEAN PLATELET VOLUME 9.2 fl (9.6-12.3); PLATELET COUNT AUTOMATED 343 10*3/uL (130-400); RED BLOOD COUNT 3.82 10*6/uL (4.10-5.10); RED CELL DISTRI WIDTH 15.5 % (0-14.5); WHITE BLOOD COUNT 15.5 10*3/uL (4.8-10.8)
[2017-03-13 02:57] LABS: ABG BASE EXCESS 5.9 mmol/L (-2.0-2.0); ABG O2 SATURATION 93.2 % (95-97); ARTERIAL BLOOD GAS PH 7.456 (7.35-7.45)
[2017-03-13 03:02] LABS: ALBUMIN 2.9 gm/dl (3.1-4.5); ALKALINE PHOSPHATASE 70 U/L (45-117); BILIRUBIN, DIRECT 0.1 mg/dL (0.0-0.2); BUN 19 mg/dl (7-24); CHLORIDE 100 mmol/L (98-107); CREATININE 0.82 mg/dL (0.55-1.02); LIPASE 84 U/L (73-393); POTASSIUM 3.8 mmol/L (3.5-5.1); SGOT/AST 10 IU/L (3-35); SGPT/ALT 13 U/L (12-78); SODIUM 138 mmol/L (136-145); TOTAL PROTEIN 6.9 gm/dL (6.4-8.2)
[2017-03-13 03:03] LABS: MICROCYTOSIS SLIGHT; OVALOCYTES FEW; PLATELET SUFFICIENCY NORMAL (NORMAL); TOTAL CELLS COUNTED 100 #CELLS
[2017-03-13 03:05] LABS: TROPONIN I < 0.015 ng/ml (<0.045)
--- NOTE | 2017-03-13 03:05 | NUR ---
SUCCESSFUL ABG DRAW FROM LR X1 ATTEMPT. POSITIVE ALLENS TEST WAS PERFORMED, SITE CLEANED, AND PUNCTURE SITE COMPRESSED FOR 5 MIN AND BANDAGE APPLIED.
[2017-03-13 03:45] LABS: BILIRUBIN NEGATIVE (NEGATIVE); BLOOD 1+ (NEGATIVE); CLARITY CLEAR (CLEAR); COLOR YELLOW (YELLOW); GLUCOSE NEGATIVE (NEGATIVE); KETONE NEGATIVE (NEGATIVE); LEUKO ESTERASE 1+ (NEGATIVE); NITRITE NEGATIVE (NEGATIVE); PH 5.5 (5.0-9.0); SPECIFIC GRAVITY 1.025 (1.005-1.030); UROBILINOGEN 0.2 E.U./dl (0.2-1.0)
[2017-03-13 03:57] LABS: YEAST TRACE
[2017-03-13 04:15] VITALS: BP 120/61
--- NOTE | 2017-03-13 04:15 | NUR ---
A 66, admitted to , under the services of MYKEL Frausto DO with a diagnosis of CHEST PAIN, PNEUMONIA. Chief complaint is RESPIRATORY ILLNESS. Patient arrived via stretcher from ER. Monitor applied. Initial assessment completed. Vital signs taken and recorded. MYKEL FRAUSTO DO notified of admission to the unit. Orders received. See assessment for past medical history, medications and allergies. Patient and/or family oriented to unit. [facility] visitation policy reviewed. Clothing/patient valuable form completed. MARYBETH SALAZAR A
--- NOTE | 2017-03-13 06:15 | NUR ---
DR. SALAZAR CONTACTED IN REGARDS TO PT. ANXIETY, SEE NEW ORDERS.
[2017-03-13 06:53] LABS: HEMATOCRIT 28.2 % (37.0-47.0); HEMOGLOBIN 8.1 g/dl (12.0-16.0); MEAN CELL VOLUME 79.9 fl (81.0-99.0); MEAN CORPUSCULAR HGB 22.9 pg (27.0-31.0); MEAN CORPUSCULAR HGB CONC 28.7 g/dl (33.0-37.0); MEAN PLATELET VOLUME 10.4 fl (9.6-12.3); PLATELET COUNT AUTOMATED 363 10*3/uL (130-400); RED BLOOD COUNT 3.53 10*6/uL (4.10-5.10); RED CELL DISTRI WIDTH 15.7 % (0-14.5); WHITE BLOOD COUNT 17.5 10*3/uL (4.8-10.8)
[2017-03-13 07:15] LABS: BUN 19 mg/dl (7-24); CHLORIDE 100 mmol/L (98-107); CHOLESTEROL 114 mg/dL (<200); CREATININE 0.96 mg/dL (0.55-1.02); FREE T4 1.25 ng/dl (0.76-1.46); HDL CHOLESTEROL 44 mg/dl (40-60); LDL CHOLESTEROL 57 mg/dL (9-159); POTASSIUM 3.5 mmol/L (3.5-5.1); SODIUM 139 mmol/L (136-145); TRIGLYCERIDES 67 mg/dl (<150); VLDL CHOLESTEROL 13 mg/dL (6-40)
[2017-03-13 07:21] LABS: THYROID STIM HORMONE (HS) 0.066 uIU/ml (0.358-4.75)
[2017-03-13 07:42] LABS: TOTAL CELLS COUNTED 100 #CELLS
[2017-03-13 07:43] LABS: MICROCYTOSIS SLIGHT; PLATELET SUFFICIENCY NORMAL (NORMAL)
[2017-03-13 08:00] VITALS: BP 110/49
[2017-03-13 08:31] LABS: VITAMIN D, 25-HYDROXY 22.9 ng/mL (30-100)
[2017-03-13 12:00] VITALS: BP 124/94
[2017-03-13 16:00] VITALS: BP 117/41
[2017-03-13 20:00] VITALS: BP 112/57
[2017-03-14] VITALS: BP 106/57
[2017-03-14 07:21] LABS: BASO % 0.1 % (0.0-1.0); HEMOGLOBIN 7.9 g/dl (12.0-16.0); LYMPH # 0.3 10*3/uL (1.3-4.4); LYMPH % 2.8 % (27.0-41.0); MEAN CORPUSCULAR HGB 23.9 pg (27.0-31.0); MEAN CORPUSCULAR HGB CONC 28.2 g/dl (33.0-37.0); MEAN PLATELET VOLUME 9.8 fl (9.6-12.3); MONO # 0.7 10*3/uL (0.1-1.0); MONO % 7.9 % (3.0-9.0); NEUT # 8.4 10*3/uL (2.3-7.9); NEUT % 88.8 % (47.0-73.0); PLATELET COUNT AUTOMATED 301 10*3/uL (130-400); RED CELL DISTRI WIDTH 15.8 % (0-14.5); WHITE BLOOD COUNT 9.4 10*3/uL (4.8-10.8)
[2017-03-14 07:23] LABS: MEAN CELL VOLUME 84.8 fl (81.0-99.0)
[2017-03-14 07:42] LABS: BUN 14 mg/dl (7-24); CHLORIDE 106 mmol/L (98-107); CREATININE 0.72 mg/dL (0.55-1.02); POTASSIUM 4.1 mmol/L (3.5-5.1); SODIUM 144 mmol/L (136-145)
[2017-03-14 08:00] VITALS: BP 116/62
--- NOTE | 2017-03-14 08:59 | NUR ---
PT RESTING IN BED. NO DISTRESS NOTED. NO VOICED C/O AT THIS TIME . WILL MONITOR
[2017-03-14 12:00] VITALS: BP 134/56
[2017-03-14 16:00] VITALS: BP 115/45
[2017-03-14 20:00] VITALS: BP 138/60
[2017-03-15] VITALS: BP 137/57
[2017-03-15 04:00] VITALS: BP 127/62
[2017-03-15 06:33] LABS: BASO % 0.1 % (0.0-1.0); EOS % 0.2 % (1.0-4.0); HEMATOCRIT 29.7 % (37.0-47.0); HEMOGLOBIN 8.3 g/dl (12.0-16.0); LYMPH # 0.3 10*3/uL (1.3-4.4); LYMPH % 3.5 % (27.0-41.0); MEAN CELL VOLUME 83.4 fl (81.0-99.0); MEAN CORPUSCULAR HGB 23.3 pg (27.0-31.0); MEAN CORPUSCULAR HGB CONC 27.9 g/dl (33.0-37.0); MONO # 0.8 10*3/uL (0.1-1.0); MONO % 8.8 % (3.0-9.0); NEUT # 7.3 10*3/uL (2.3-7.9); NEUT % 86.5 % (47.0-73.0); PLATELET COUNT AUTOMATED 362 10*3/uL (130-400); RED BLOOD COUNT 3.56 10*6/uL (4.10-5.10); RED CELL DISTRI WIDTH 15.6 % (0-14.5); WHITE BLOOD COUNT 8.5 10*3/uL (4.8-10.8)
[2017-03-15 06:58] LABS: BUN 15 mg/dl (7-24); CHLORIDE 104 mmol/L (98-107); CREATININE 0.62 mg/dL (0.55-1.02); POTASSIUM 4.1 mmol/L (3.5-5.1); SODIUM 142 mmol/L (136-145)
[2017-03-15 08:00] VITALS: BP 138/66
--- NOTE | 2017-03-15 08:28 | NUR ---
PT SITTING UP IN CHAIR, EATING BREAKFAST. NO DISTRESS NOTED. WILL MONITOR
--- NOTE | 2017-03-15 09:00 | NUR ---
Behavioral Analyst in to talk to patient. Patient states lives at home with daughter and family. There are no steps in the home. Physician: nazario king Pharmacy: [facility]: none Patient's level of ADLs: MINIMAL ASSIST Patient has working utilities: all working DME: nebulizer, home oxygen , portable tanks from [facility] Follow-up physician's appointment after d/c: will be made by hospitalist nurse director upon discharge Does patient want to access PORTAL?: no Discharge plan discussed with patient, patient lives at home with daughter and family, she stated she will be going back when able, also discussed with her VNA and she refused any services at this time. RADHA PERKINS
[2017-03-15 12:00] VITALS: BP 142/65
--- NOTE | 2017-03-15 13:22 | NUR ---
SPEECH PATHOLOGY Screening completed. Speech pathology services are not warranted at this time. Patient is known to this dept. from prior services and has a hx of noncompliance. GEE GUPTA MS [facility] SOM[facility]-CORE BLOWER OPERATOR
--- NOTE | 2017-03-15 15:46 | NUR ---
SW SPOKE WITH PT ABOUT DISCHARGE PLANNING. PT REFUSES SNF AND HH.
[2017-03-15 16:00] VITALS: BP 151/73
[2017-03-15 20:00] VITALS: BP 140/76
--- NOTE | 2017-03-15 21:00 | NUR ---
AWAKE, SITTING UP IN BED. RESPIRATIONS EASY. LUNGS DIMINISHED WITH POOR AIR EXCHANGE. PULSE OX 100% 2L. CLAIMS COUGH PROD FOR WHITE. NORMOACTIVE BOWEL SOUNDS, C/O DIARRHEA. OFFERED AND EDUCATED REGARDING TEDS, DECLINED. REFUSING TO ALLOW MEDIPORT DRESSING CHANGED. CALL LIGHT WITHIN REACH. NO VOICED COMPLAINTS
[2017-03-16] VITALS: BP 128/62
--- NOTE | 2017-03-16 | NUR ---
SLEEPING. RESPIRATIONS EASY. VSS. CALL LIGHT WITHIN REACH. BED ALARM MAINTAINED FOR SAFETY
--- NOTE | 2017-03-16 06:00 | NUR ---
SLEPT THROUGHOUT NIGHT. RESPIRATIONS EASY. O2 IN USE. NO VOICED COMPLAINTS THIS SHIFT
[2017-03-16 08:00] VITALS: BP 128/70
--- NOTE | 2017-03-16 08:30 | NUR ---
PT SITTING UP IN CHAIR. NO DISTRESS NOTED. NO VOICED C/O. CALL LIGHT WITHIN REACH. WILL MONITOR
--- NOTE | 2017-03-16 09:00 | NUR ---
case management visits with patient, patient denies any home needs
--- NOTE | 2017-03-16 11:45 | NUR ---
spo2 on ra at rest...92% pt ambulated on RA for 4 minutes..spo2 ranged from 91-93% pt requested not to ambulate any further due to her legs bothering her...RN notified...PCT helped RT ambulate pt
[2017-03-16 12:00] VITALS: BP 141/77
--- NOTE | 2017-03-16 15:31 | NUR ---
SW SPOKE WITH PT ABOUT DISCHARGE PLANS. PT WANTS TO STAY AT [facility]OSPITAL FOR [facility]. SW INFORMED HER THAT HOSPITAL DOES NOT HAVE THE SKILLED UNIT ANYMORE. PT SAID TO TALK WITH HER DTR SHELBY AUGUSTIN.
--- NOTE | 2017-03-16 15:33 | NUR ---
KATH SPOKE WITH DTRomelia RYAN ABOUT DISCHARGE PLANS. SHELBY STATED THAT THE ONLY THING THEY NEED ARE THE 4X4 DRESSINGS FOR HER FEEDING TUBE SITE. KATH WILL SEE IF A PRESCRIPTION CAN BE WRITTEN FOR THOSE UPON DISCHARGE.
[2017-03-16 16:00] VITALS: BP 112/88
--- NOTE | 2017-03-16 19:40 | NUR ---
ANXIOUS, SITTING UP IN BED. C/O SOB, RESP PRESENT IN ROOM TO ADMINISTER BREATHING TREATMENT. LUNGS DIMINISHED. PULSE OX 100% 2L. CLAIMS COUGH PRODUCTIVE FOR WHITE. MEDIPORT DRESSING NOT SECURED, PATIENT REFUSING TO ALLOW RN TO CHANGE DRESSING. CALL LIGHT WITHIN REACH
[2017-03-16 20:00] VITALS: BP 125/61
--- NOTE | 2017-03-16 21:25 | NUR ---
REQUESTED AND RECEIVED RESTORIL PER PRN ORDER TO ASSIST WITH SLEEP. WILL MONITOR FOR EFFECTIVENESS
--- NOTE | 2017-03-16 22:00 | NUR ---
REFUSED MUCINEX, STATING THAT THE PILLS ARE TOO BIG TO SWALLOW
[2017-03-17] VITALS: BP 120/70
--- NOTE | 2017-03-17 00:30 | NUR ---
RESTORIL EFFECTIVE. SLEEPING. RESPIRATIONS EASY. VSS. CALL LIGHT WITHIN REACH
--- NOTE | 2017-03-17 03:00 | NUR ---
CONTINUES TO SLEEP WITH NO DISTRESS NOTED. RESPIRATIONS EASY. O2 IN USE. CALL LIGHT WITHIN REACH
--- NOTE | 2017-03-17 06:00 | NUR ---
SLEPT THROUGHOUT NIGHT. O2 IN USE
[2017-03-17 08:00] VITALS: BP 159/80
--- NOTE | 2017-03-17 08:57 | NUR ---
OOB TO CHAIR, RESPIRATIONS NON-LABORED WITH SKIN W/D, POOR TURGOR NOTED. PT DENIES C/O CHEST PAIN OR S.O.B. PRODUCTIVE COUGH NOTED. SEE SHIFT ASSESSMENT.
--- NOTE | 2017-03-17 09:37 | NUR ---
SPEECH PATHOLOGY MBS completed as per orders. Patient was alert and cooperative. Patient displayed a moderate oropharyngeal dysphagia. Tongue to posterior pharyngeal wall contact was impaired resulting in pooling in valleculae with puree, soft solid and nectar liquids. Patient was aware of residue and attempted to clear it with a subsequent swallow however she was not able to completely clear due to weak swallow with reduced hyolaryngeal elevation. Thin liquid was attempted and was effective in clearing the residue, however resulted in penetration. Cough was elicited. Chin tuck was attempted with thin liquid however penetration again resulted. Recommend soft diet (very soft items that are easier to chew due to edentulous status) and nectar thick liquid. Recommend safe swallow strategies such as upright positiong for meals, small bites/sips, alternating thick liquid and solid and extra swallows after every couple bites. Follow up therapy is recommended focusing on pharyngeal strengthening exercises to improve safety of swallow. Patient has been tube fed in the past and still has her G-tube however stated that she only uses it "sometimes." Patient wants to eat by mouth and has admitted that she often ate even during the time she was NPO. Patient is known from past therapy and can be noncompliant. Patient was fully educated on the reasoning for use of safe swallow strategies as well as aspiration risks. She verbalized understanding of info. provided. Her nurse was educated and verbalized understanding. Dictated report to follow. Thank you for this referral. GEE GUPTA MSCCC-CLAIMS CUSTOMER SERVICE REPRESENTATIVE
--- NOTE | 2017-03-17 10:09 | NUR ---
REFUSES MUCINEX, ATTEMPTED TO EXPLAIN BENEFITS TO TAKING MEDS, PT UNINTERESTED. OOB TO CHAIR, LEGS ELEVATED.
--- NOTE | 2017-03-17 11:52 | NUR ---
PT CAME FROM HOME AND WILL BE RETURNING TO HOME PER DTR SHELBY WHEN MEDICALLY STABLE. PT DID NOT COME FROM [facility]. PT WILL NEED PRESCRIPTION FOR 4X4 DRESSING FOR PEG TUBE SITE.
[2017-03-17 12:00] VITALS: BP 106/53
[2017-03-17] MEDS ORDERED: LEVAQUIN750 M1 PO (14:07)
--- NOTE | 2017-03-17 16:22 | NUR ---
Discharge instructions reviewed with patient/family. Patient receptive and verbalizes understanding. Follow-up care arranged. Written instructions given to patient/family. KALEIGH HILL
== END 2017-03-17 16:22 | disposition home or self-care (01) | DRG 871 ==
LOC: ED 01:47 → EDHOLD 03:30 → 5E 03:30
PROVIDERS: Emergency Medicine Emergency Medical Services; Family Medicine; Internal Medicine; ADMIT Internal Medicine
PROC: BD11YZZ Fluoroscopy of Esophagus using Other Contrast (ICD-10-PCS; principal; 2017-03-17)
DX: A41.9 Sepsis, unspecified organism (principal); E43 Unspecified severe protein-calorie malnutrition; E87.3 Alkalosis; J96.11 Chronic respiratory failure with hypoxia; I24.9 Acute ischemic heart disease, unspecified; J18.9 Pneumonia, unspecified organism; Z68.1 Body mass index [BMI] 19.9 or less, adult; T66.XXXA Radiation sickness, unspecified, initial encounter; C32.9 Malignant neoplasm of larynx, unspecified; R73.9 Hyperglycemia, unspecified; F41.9 Anxiety disorder, unspecified; J44.9 Chronic obstructive pulmonary disease, unspecified; E03.9 Hypothyroidism, unspecified; D50.9 Iron deficiency anemia, unspecified; E55.9 Vitamin D deficiency, unspecified; K21.9 Gastro-esophageal reflux disease without esophagitis; R07.89 Other chest pain; Z79.899 Other long term (current) drug therapy; Z87.891 Personal history of nicotine dependence; Z82.49 Family history of ischemic heart disease and other diseases of the circulatory system

== ENCOUNTER 2017-05-07 22:41 | Emergency (ER) | payer MEDICARE, MEDICAID ==
[~2017-05-07] VITALS: Ht 165.1 cm; Wt 43.5 kg
[2017-05-07] MEDS ORDERED: CEPHALEXIN500 M1 PO (23:35)
== END 2017-05-07 23:48 | disposition home or self-care (01) ==
LOC: ED 22:41
DX: T85.598A Other mechanical complication of other gastrointestinal prosthetic devices, implants and grafts, initial encounter (principal); F17.200 Nicotine dependence, unspecified, uncomplicated; J44.9 Chronic obstructive pulmonary disease, unspecified; E03.9 Hypothyroidism, unspecified; Z98.890 Other specified postprocedural states; Z79.899 Other long term (current) drug therapy; Y92.9 Unspecified place or not applicable

== ENCOUNTER 2017-05-16 15:16 | Inpatient (IN) | payer MEDICARE, MEDICAID ==
[2017-05-16] VITALS: BP 165/87
[~2017-05-16] VITALS: Ht 165.1 cm; Wt 44.3 kg
--- NOTE | ~2017-05-16 | PROC NOTE ---
[place], [place] PROCEDURE NOTE NAME: BENTLEY FAGAN UNIT #: [id number] ROOM: 526 DOCTOR: NIGEL ANSARI MD,SAHIL BIRTHDATE: [birth year] DOS: 05/20/2017 PROCEDURE: Bronchoscopy. PREOPERATIVE DIAGNOSES: The patient with persistent cough and patient's inability to expectorate sputum with the ongoing acute exacerbation of chronic obstructive pulmonary disease. POSTOPERATIVE DIAGNOSES: Very purulent and copious amount of mucopurulent material removed from the bilateral endobronchial tree as well as some of the throat as well. Examination of the throat was suboptimal. SURGEON: Sahil Manning MD PROCEDURE DESCRIPTION: Informed consent obtained for the patient. The patient brought to the OR and placed in supine position. Conscious sedation administered by the Anesthesia Department. After achieving proper sedation, airway introduced into the mouth. Bronchoscope advanced to the airway. The patient noted with very large amount of thick purulent secretion, which were dried up secretions in the throat, which was suctioned out. Vocal cords were seen. Bronchoscope and vocal and tracheal lumen, which are noted filled with thick purulent large amount of the copious other purulent secretion to the ivette level. Similar secretion present. Bilateral endobronchial tree filling port and bronchial tree. All the secretions suctioned out with the help of normal saline wash, sent for culture. Procedure well tolerated by the patient. Postoperative findings were discussed with patient's daughter in detail. No major change in treatment will be necessary. The culture will be closely monitored to make further adjustments in the medications as necessary. SAHIL MANNING MD CM:PROCNOTE:PROCEDURE NOTE [id number] SAHIL ANSARI MD
--- NOTE | ~2017-05-16 | CON ---
[place], [place] REPORT OF CONSULTATION NAME: BENTLEY FAGAN UNIT #: [id number] ROOM: 526 DOCTOR: SAHIL ANGUIANO MD BIRTHDATE: [birth year] DOS: 05/19/2017 REASON FOR CONSULTATION: To assess the patient for current cough, now resolving and other symptoms with a past history of COPD and other problem. The patient was independently seen and examined in [id number] encounter, history was confirmed. Medical records were reviewed personally as well. All the labs available were reviewed. Assessment of the patient for today's consultation was personally completed and the medical management changes were suggested were made for the patient personally as well. Note done by the medical officer psychiatry, was approved. HISTORY OF PRESENT ILLNESS: This is a 67-year-old white female was noted with past history of COPD from the past and aspiration pneumonia. She has been also noted they treated cancer of the larynx for this patient as well as the lung. The patient was admitted in [facility] over a year ago, developed progressive respiratory failure with acute aspiration pneumonia and debility. The patient was treated in [facility] later on transferred to [facility] where she was successfully liberated from mechanical ventilation. For this patient, also shows overall improvement in respiratory symptoms and discharged home. The patient has been brought to the hospital by the family members as the patient was noted with symptoms of progressive general weakness, fatigue, inability to ambulate with a fever. The symptom was started about 3-4 days ago. The coughing has been noted excessive chest congestion, unable to expectorate sputum. The patient denies symptoms of hemoptysis. There were symptoms of chest pain reported by the patient. Shortness of breath was reported with exertion. She was not sure about wheezing. REVIEW OF SYSTEMS: For the patient, which is already done by the medical officer psychiatry. PAST MEDICAL HISTORY: The patient was known with history of: 1. COPD. 2. Chronic hypoxic respiratory failure. 3. History of cancer of the larynx. The patient treated with radiation therapy without any recurrence known so far. 4. Right lower lobe cancer noted as non-small cell lung cancer treated with the chemotherapy and radiation therapy, I believe as well received by the patient previously in 2016. 5. General anxiety disorder. 6. Oropharyngeal dysphagia was also noted, which improved progressively. 7. Intubation mechanical ventilation, which was done in 2017 in [facility]. 8. Past history of nicotine use. 9. Severe debility, which is chronic. PAST SURGICAL HISTORY: 1. Hernia repair. 2. Diagnostic therapeutic bronchoscopy done in 2016. 3. Direct laryngoscopy with biopsy of the lesion in the larynx on diagnosis of cancer was established with the patient in 2016. [place], [place] REPORT OF CONSULTATION NAME: BENTLEY FAGAN UNIT #: [id number] ROOM: 526 DOCTOR: YUMI ANGUIANO MDM BIRTHDATE: [birth year] 4. PEG tube insertion of the patient with subsequent removal. SOCIAL HISTORY: The patient never , has 2 children. Denies any history of alcohol use or illicit drug use. Tobacco use was noted from age of 11 years a pack of cigarettes per day until 2016. FAMILY HISTORY: Unknown. CURRENT MEDICATIONS: Administered to the patient were noted use of Lovenox for DVT prophylaxis, levothyroxine, Solu-Medrol 40 mg q.8h, DuoNeb q.4h., IV vancomycin, Levaquin, and other p.r.n. medications administration. DRUG ALLERGIES: Noted as no known drug allergies. PHYSICAL EXAMINATION: GENERAL: A 67-year-old female who has been currently noted to be awake and alert without any distress, chronic hoarseness, which has been known. Height of the patient recorded 5 feet 5 inches, weight of 44 kg, BMI 16.2. VITAL SIGNS: The patient normal temperature, respiratory rate 18-20, heart rate of 90-82, blood pressure 111/67-140/78. Pulse oxygen saturation of the patient recorded on room air 95% saturation to 91% saturation at rest. HEENT: Head was atraumatic. Eyes nonicterus. NECK: Supple. Oral mucosa moist. CARDIOVASCULAR: S1, S2 is audible. LUNGS: Noted without any crackles, rhonchi, or wheezing at this time. Breaths are noted mildly diminished bilaterally. ABDOMEN: Flat, soft, nontender. EXTREMITIES: Noted without any acute edema. LABORATORY DATA: The culture of the PEG tube site for the patient was noted as heavy growth of gram-positive cocci. CBC of the patient of 05/18/2017, WBC count of 13.1, hemoglobin 10.9, hematocrit 28.2, platelet count 470,000. Blood culture for the patient of 05/16/2017 showed no bacterial growths. CBC on 05/17/2017, WBC count 11, hemoglobin 8.3, hematocrit 28.8. CBC of the patient on 05/19/2017 today, WBC count 13.9, remaining CBC essentially same with elevated platelet count 520,000. BMP of the patient today was noted as normal. Review of the radiology data for this patient, chest x-ray that was done 05/16/2017, one view was done shows changes of COPD with a small area of atelectasis of left lung. There was no acute pulmonary infiltration, consolidation, finding, congestive heart failure, pleural effusions. IMPRESSION: 1. History of head and neck cancer as a lung cancer, which was treated, noted in remission currently admitted to the hospital for acute exacerbation of chronic obstructive pulmonary disease, acute severe bronchitis with nonproductive cough noted inability to expectorate sputum. 2. Infection of the PEG tube site as well. 3. Chronic protein calorie malnutrition as well. 4. Acute exacerbation of chronic obstructive pulmonary disease as well. [place], [place] REPORT OF CONSULTATION NAME: BENTLEY FAGAN UNIT #: [id number] ROOM: 526 DOCTOR[facility] [birth year] 5. Past history of nicotine dependence, she has not been smoking cigarettes for the past couple of years or so. PLAN OF MANAGEMENT: Therapeutic bronchoscopy assessed for the patient to be done tomorrow morning. The patient was agreeable for that. In the meantime, continue antibiotic, IV vancomycin and Levaquin coverage of the current local wound infection in the abdomen and for acute bronchitis. Adjustment in antibiotic based on the culture results. The risk and benefits of procedure has been noted and discussed with the patient. She was agreeable for the procedure, which was planned to be done in the morning. Obtain the prealbumin level of the patient to assess the nutritional status of the patient as well. The patient has already been consulted for the current PEG tube problem, which need to be readjusted. Thank you for allowing me to participate in the care of this patient. SAHIL MANNING MD CM:CONSTR:REPORT OF CONSULTATION 1510 05/20/17 0448 interface
--- NOTE | ~2017-05-16 | PR ---
[place], [place] PROGRESS NOTE NAME: BENTLEY FAGAN UNIT #: [id number] ROOM: 526 DOCTOR: SAHIL ANGUIANO MD BIRTHDATE: [birth year] DOS: 05/22/2017 The patient has been noted with gradual reduction in the cough. Continue antibiotics and bronchodilators. Denies symptoms of chest pain or any abdominal pain. The patient's appetite was noted fair. She has not been noted any abdominal pain at this time. PHYSICAL EXAMINATION: VITAL SIGNS: Normal temperature this morning, respiratory rate 20, heart rate 76, blood pressure 137/84. Pulse oxygen saturation on 2 liters 99% saturation. HEENT: No acute change. NECK: Supple. CARDIOVASCULAR: S1, S2 audible. LUNGS without any wheezing or crackles. ABDOMEN: Soft, nontender. EXTREMITIES: No edema. LABORATORY DATA: The patient's blood culture, no bacterial growth. BMP normal BUN and creatinine. CBC: Hemoglobin 8.4, WBC count was 13.4 and platelet count 125,000. The culture bronchial washing light growth of gram-negative for the patient noted as E. coli for this patient that was noted sensitivity to the Augmentin, Invanz, imipenem, meropenem and resistance to the Levaquin. IMPRESSION: 1. The patient was noted severe acute tracheobronchitis. The patient polymicrobial gram-negative infection, Escherichia coli as well as aureus. 2. hemorrhage, infection. The PEG tube site was noted as well. 3. Oropharyngeal dysphagia. 4. History of cancer of the head and neck with the patient and the lung, which has been previously treated and so far known in remission. 5. Protein calorie malnutrition. PLAN OF TREATMENT adjustment antibiotics according to the culture results. For the acute exacerbation of COPD. She was getting Solu-Medrol for the patient that will be decreased to 40 mg daily dose today. Other previous treatment plan and management as previously. Usual care. Additional treatment changes to be made based on progression of the illness. [place], [place] PROGRESS NOTE NAME: BENTLEY FAGAN UNIT #: [id number] ROOM: 526 DOCTOR: SAHIL ANGUIANO MD BIRTHDATE: [birth year] SAHIL MANNING MD CM:PNTRANS [id number] SAHIL ANSARI MD 05/28/17 1037 interface
--- NOTE | ~2017-05-16 | PR ---
[place], [place] PROGRESS NOTE [id number] UNIT #: [id number] ROOM: 526 DOCTOR: SAHIL ANGUIANO MD BIRTHDATE: [birth year] DOS: 05/21/2017 The patient was seen and examined personally with [id number] encounter. History was confirmed. Physical examination was performed. All the lab's of the patient available were reviewed. The assessment of the patient for today's followup visit was personally completed. Note done by the medical cash poster was approved. SUBJECTIVE: The patient has been noted with reduction of the cough with no sputum expectoration. Denies symptoms of chest pain. The patient has been noted with reduction in wheezing. She has been noted with chronic hoarseness that remains unchanged. She has been taking some modified diet and also getting feeding and nutrition support from the PEG tube. The patient denies any symptoms of hemoptysis or chest pain. Denies symptoms of pain in the lower extremities as well or bruising. OBJECTIVE: VITAL SIGNS: Reviewed, shows a normal temperature, respiratory rate 20-18, heart rate 100-82, blood pressure 154/65-149/74. The pulse oxygen saturation of the patient noted on 2 liters nasal cannula 98% saturation. HEENT: Edentulous status. NECK: Supple. Oral mucosa moist. CARDIOVASCULAR: S1, S2 audible. LUNGS: The patient has scattered wheezing, no crackles. ABDOMEN: Soft, nontender. EXTREMITIES: Without any acute edema. Loss of muscle mass. CENTRAL NERVOUS SYSTEM: Intact. MUSCULOSKELETAL: Noted without any acute deformities. LABORATORY DATA: CBC of the patient from 05/21/2017, WBC count 12.6, hemoglobin 10.5, hematocrit 27.0, platelet count 468,000. Culture of the bronchial washing, light growth of gram-negative bacilli. Final cultures are pending. Gram stain bronchial washing, many white blood cells, few epithelial cells, few gram-positive cocci in pairs and chains, gram-negative bacilli, and budding yeast. IMPRESSION: 1. The patient who has been currently noted with acute severe tracheobronchitis, removal of copious amount of mucopurulent secretions from the endobronchial tree. 2. Anemia without any obvious blood loss or gastrointestinal bleeding. 3. History of cancer of the lung as well as of the head and neck, previously treated, noted in remission in the past. 4. The patient with overall severe debility with protein calorie malnutrition as well. PLAN OF MANAGEMENT: Continue optimizing nutrition status. Aspiration precautions. Management of the PEG tube infection with the antibiotic as well. Continuation of current antibiotic of the patient until the culture results will be known for the antibiotic usage that will be required at the [place], [place] PROGRESS NOTE NAME: BENTLEY FAGAN UNIT #: [id number] ROOM: 526 DOCTOR: NIGEL ANSARI MD,SAHIL BIRTHDATE: [birth year] Facility setting. The PICC line could be inserted. Continue bronchodilator, treatment therapy, plan of management as well. Usual treatment. Dose of Solu-Medrol could be decreased at this time to 40 mg b.i.d. since the wheezing has been noted decreased. SAHIL MANNING MD CM:PNTRANS [phone] SAHIL ANSARI MD 05/22/17 0117 interface
--- NOTE | ~2017-05-16 | PR ---
[place], [place] PROGRESS NOTE NAME: BENTLEY FAGAN UNIT #: [id number] ROOM: 526 DOCTOR: NIGEL ANSARI MD,SAHIL BIRTHDATE: [birth year] DOS: 05/23/2017 SUBJECTIVE: The patient is noted generally o 05/23/2017. She has been comfortably resting at this time, sitting on her chair. The patient did fell down yesterday, but not noted any acute major injuries. She has been noted with reduction in the coughing. Continue antibiotic. The patient with adjustment in antibiotic done yesterday use of Augmentin and continuation of the vancomycin. OBJECTIVE: VITAL SIGNS: The patient which has been recorded shows normal temperature, respiratory rate 18, heart rate 70, blood pressure 138/70. The pulse oxygen saturation on 2 liters 97% saturation. HEENT: No new change. NECK: Supple. CARDIOVASCULAR: S1, S2 audible. LUNGS: Without any crackles. Scattered wheezing. ABDOMEN: Soft, nontender. LABORATORY DATA: CBC: WBC count 11.5, hemoglobin 8.8, hematocrit was noted as 32.3. The BMP of patient noted normal BUN and creatinine. IMPRESSION: 1. The patient with acute tracheobronchitis. Polymicrobial infection with MRSA and gram-negative infection, treated. 2. Metabolic alkalosis. 3. Oropharyngeal dysphagia, weight loss. 4. Past history of malignancy. PLAN OF TREATMENT: Continuation of current therapy. The patient \E\previously in progress. No change in treatment will be needed. Continue current antibiotic for a total of 10 days from yesterday has started. [facility] consultation was pending. SAHIL MANNING MD CM:PNTRANS [phone] SAHIL ANSARI MD 05/23/171717 interface
--- NOTE | ~2017-05-16 | PR ---
[place], [place] PROGRESS NOTE NAME: BENTLEY FAGAN UNIT #: [id number] ROOM: 526 DOCTOR: NIGEL ANSARI MD,SAHIL BIRTHDATE: [birth year] DOS: 05/24/2017 PULMONARY FOLLOWUP SUBJECTIVE: She has been noted comfortable at this time. Coughing has been subsiding progressively. Denies symptoms of chest pain or abdominal pain. Modified diet was taken by the patient as well. OBJECTIVE: VITAL SIGNS: Normal temperature, respiratory rate 18, heart rate of 83, blood pressure 139/63. Pulse oxygen saturation on 2 liters nasal cannula 97% saturation. HEENT: No acute change. NECK: Supple. CARDIOVASCULAR: S1, S2 is audible. LUNGS: The patient was noted without any wheezing or crackles at the present time. ABDOMEN: Soft, nontender. EXTREMITIES: Without any acute edema. IMPRESSION: 1. The patient has stable respiratory status was noted the present time with resolving acute tracheobronchitis. The patient with methicillin-resistant Staphylococcus aureus. 2. The patient with chronic dysphagia. 3. Cancer of head and the neck. PLAN OF TREATMENT: Continuation of current therapy of the patient has previously in progress. Usual care. Discharge planning was noted for the patient to [facility] the [facility] facility. SAHIL MANNING MD CM:PNTRANS [phone] SAHIL ANSARI MD 05/24/17 7333 interface
--- NOTE | ~2017-05-16 | CON ---
[place], [place] REPORT OF CONSULTATION NAME: BENTLEY FAGAN UNIT #: [id number] ROOM: 526 DOCTOR: FITO SOLIS DO BIRTHDATE: [birth year] DOS: 05/19/2017 CHIEF COMPLAINT: Weakness and fevers. HISTORY OF PRESENT ILLNESS: A 67-year-old female who is well known to our service, was admitted to the hospital after she came to the ER for weakness and fever. The patient's symptoms have started on May 16. The patient was being treated for a COPD exacerbation; however, despite 2 days of treatment, the patient's symptoms did not improve and so a consult was placed for Dr. Manning to maximize pulmonary care. The patient has a history of COPD and laryngeal cancer and has had multiple admissions for worsening of her COPD. The patient's cultures grew MRSA, both in the throat and the wound culture; however, positive for MRSA. PAST MEDICAL HISTORY: Anorexia, anxiety, COPD, hypothyroidism, laryngeal cancer, microcytic anemia, radiation therapy, severe protein calorie malnutrition, malnutrition and vitamin D deficiency. PAST SURGICAL HISTORY: Hernia repair, laryngoscopy, tonsillectomy and adenoidectomy. SOCIAL HISTORY: Former smoker, quit 1 year ago. Does not abuse illicit drugs or drink alcohol. FAMILY HISTORY: Sister at age 50 due to [place]. Mother is at age 60 due to unknown cause. Father at age 70 for an unknown heart issue. ALLERGIES: No known drug allergies. HOME MEDICATIONS: Vitamin D, nebulizer and levothyroxine. REVIEW OF SYSTEMS: GENERAL: The patient reports fevers, chills. Denies weight loss, weight gain. HEENT: Denies eye discharge, eye pain, itching, nasal discharge, throat pain, dysphagia. CARDIOVASCULAR: Denies chest pain, palpitation, lower extremity or upper extremity swelling or diaphoresis. RESPIRATORY: The patient complains of shortness of breath, denies any hemoptysis. Reports positive sputum production and cough as well. ABDOMEN: The patient denies abdominal pain, diarrhea, constipation, nausea and vomiting. NEUROLOGIC: The patient denies lightheadedness, dizziness and confusion, headaches. SKIN: The patient denies rashes or lesions. PHYSICAL EXAMINATION: VITAL SIGNS: Temperature 97.5, pulse is 90, respirations 20, blood pressure 165/83, pulse ox is 91% on room air.GENERAL APPEARANCE: The patient is emaciated, cachectic, appears malnourished, no acute distress, alert and oriented times 3. [place], [place] REPORT OF CONSULTATION NAME: BENTLEY FAGAN UNIT #: [id number] ROOM: 526 DOCTOR: FITO SOLIS DO BIRTHDATE: [birth year] HEENT: Eyes are clear. No injection. Nares are patent. Mucous membranes are moist. NECK: Supple, nontender. CARDIOVASCULAR: Regular rate and rhythm. S1, S2 appreciated. PULMONARY: Lungs are clear to auscultation. No wheezes, rales or rhonchi. ABDOMEN: Soft, nontender with positive bowel signs. PEG tube in place. EXTREMITIES: Upper extremities and lower extremities are clear of edema, erythema, clubbing or cyanosis. NEUROLOGIC: No focal deficits appreciated. SKIN: No rashes or lesions. LABORATORY DATA: White count 13.9, hemoglobin 8.8, hematocrit 31.2, platelet count 520. Chemistries: Sodium 143, potassium 4.3, chloride 106, carbon dioxide 32, BUN 15, creatinine 0.63, glucose 98, calcium 8.7. B12 of 717. Folate 8.22. Blood cultures remain negative. Nares swab for flu is negative. Throat culture and wound culture was positive for MRSA. Chest x-ray on the shows stable cardiomegaly, COPD, stable chronic atelectasis left base. No acute infiltrate or pleurisy. IMPRESSION: 1. Chronic obstructive pulmonary disease with acute exacerbation. 2. MRSA infection of the throat. 3. Malnutrition. 4. Chronic respiratory failure with hypoxia. TREATMENT PLAN: Continue with current antibiotics, bronchodilators and steroids. The patient will be prepped for bronchoscopy tomorrow to remove any mucus plugging that is occurring. Gastroenterology should be consulted for PEG tube adjustment. Continue with DVT prophylaxis and all appropriate home medications. We will continue to follow the patient and prepare for the bronchoscopy tomorrow. FITO SOLIS DO SAHIL MANNING MD CM:CONSTR:REPORT OF CONSULTATION 1324 05/19/17 1441 interface
--- NOTE | ~2017-05-16 | PR ---
[place], [place] PROGRESS NOTE NAME[facility]AG[id number] UNIT #: [id number] ROOM: 526 DOCTOR: SAHIL ANGUIANO MD BIRTHDATE: [birth year] DOS: 05/20/2017 SUBJECTIVE: The patient independently seen and examined, [id number] encounter, history was confirmed. Physical examination performed, assessed for the patient today, is noted and personally completed. Any change in medical management personally done as well. Note done by the biomedical service engineer was approved. The patient continued severe cough. The patient's inability to expectorate sputum and excessive chest congestion. She has not been reported any symptoms of acute shortness of breath at rest, but there were symptoms of chest pain described by the patient. She is currently n.p.o. past midnight for bronchoscopy to attempt abdominal pain. Still noted with some drainage around the PEG tube. The patient was waiting for assessment by the tool marker with the PEG tube. PHYSICAL EXAMINATION: VITAL SIGNS: For the patient noted normal temperature, respiratory rate 20, heart rate of 83-69, blood pressure 140/74-132/73. Pulse oxygen saturation on 2 liters nasal cannula 92% saturation. HEENT: Edentulous status. Head was atraumatic. NECK: Supple. LUNGS: The patient noted general reduction in the breath sounds. Scattered crackles in the lungs without any wheezing. ABDOMEN: Soft. EXTREMITIES: The patient without any edema. MUSCULOSKELETAL: Chronic loss of muscle mass. SKIN: No lesions or rashes. Chronic changes. CENTRAL NERVOUS SYSTEM: Intact. LABORATORY DATA: CBC today for 05/20/2017, for the patient's hemoglobin 8.5, hematocrit 30.1, platelet count 467,000, normal WBC count. BMP normal BUN and creatinine. CO2 of 35. Prealbumin only 14. IMPRESSION: 1. The patient with ongoing severe acute exacerbation of COPD with retained secretion, excessive chest congestion, inability to expectorate sputum, history of lung cancer and the cancer of the throat for the patient treated already appropriately were noted ____ previously. 2. Recurrent leakage of the PEG tube with localized wound infection as well. PLAN OF MANAGEMENT: 1. Proceed with the bronchoscopy of patient as planned. Further treatment changes will be done based on progression of the illness. The patient is receiving the vancomycin for the MRSA infection of the wound of the abdomen at the PEG tube site. 2. Chronic oropharyngeal dysphagia. 3. Protein calorie malnutrition of the patient noted moderately. Any change or modification in treatment of the patient if necessary will be done after the bronchoscopy. [place], [place] PROGRESS NOTE NAME: BENTLEY FAGAN UNIT #: [id number] ROOM: 526 DOCTOR: SAHIL ANGUIANO MD BIRTHDATE: [birth year] SAHIL MANNING MD CM:GRAHAM [id number] SAHIL ANSARI MD 05/21/170 interface
--- NOTE | ~2017-05-16 | PR ---
[place], [place] PROGRESS NOTE NAME: BENTLEY FAGAN UNIT #: [id number] ROOM: 526 DOCTOR: NIGEL ANSARI MD,SAHIL BIRTHDATE: [birth year] DOS: 05/25/2017 SUBJECTIVE: The patient has been noted comfortable at this time, resting in the bed. The patient was continued with modified diet orally as well. Antibiotic was continued. She is receiving physical therapy. Denies symptoms of chest pain or acute shortness of breath. OBJECTIVE: VITAL SIGNS: Normal temperature, respiratory rate 18, heart rate of 105, blood pressure 126/74, pulse ox saturation on 2 liters nasal cannula 97% saturation. HEENT: Shows no acute change. Head was atraumatic. Eyes nonicterus. CARDIOVASCULAR: S1, S2 audible. LUNGS: The patient was noted without any wheezing or crackles at the present time. ABDOMEN: Soft, nontender. EXTREMITIES: The patient was noted without any acute edema. IMPRESSION: Resolving acute severe tracheobronchitis in the patient with exacerbation of chronic obstructive pulmonary disease progressively, history of aspiration, history of cancer of the head and neck and the lung. PLAN OF TREATMENT: Continue antibiotics for current MRSA infection. The patient with gram-negative infection. Continue bronchodilators, other treatment, plan and management. Awaiting the patient transferred to intermediate facility for completion of the antibiotic therapy. SAHIL MANNING MD CM:PNTRANS [id number] SAHIL ANSARI MD 05/26/17 0006 interface
--- NOTE | ~2017-05-16 | PR ---
[place], [place] PROGRESS NOTE NAME: BENTLEY FAGAN UNIT #: [id number] ROOM: 526 DOCTOR: FITO SOLIS DO BIRTHDATE: [birth year] DOS: 05/21/2017 SUBJECTIVE: The patient is seen and examined at bedside. The patient reports that she feels 100% better since yesterday after the bronchoscopy was performed. The patient has no new complaints at this time. The results of the bronchoscopy were discussed with the patient. The patient understood. OBJECTIVE: VITAL SIGNS: Temperature 97.7, pulse is 75, respirations 20, blood pressure 149/74, pulse ox 98% on room air. LABORATORY DATA: Throat cultures and wound culture is positive for MRSA. bacterial culture from the bronchial washing is positive for gram-negative bacilli, final result is pending. Blood cultures remain negative. GENERAL APPEARANCE: The patient is awake, alert and oriented x 3, in no acute distress. HEENT: Eyes are clear. Nares are patent. Mucous membranes are moist. NECK: Supple, nontender. CARDIOVASCULAR: Regular rate and rhythm. No murmurs, gallops or rubs. PULMONARY: Moderate expiratory wheezing noted in all lung bowens with mild crackles. No rhonchi appreciated. ABDOMEN: Soft, nontender with positive bowel sounds. PEG tube in place.. EXTREMITIES: upper and lower extremities clear of edema, erythema, clubbing or cyanosis. NEUROLOGIC: Negative for focal deficits. IMPRESSION: 1. Methicillin-resistant Staphylococcus aureus infection. 2. Gram-negative bacilli, culture positive of bronchial washings. 3. Acute exacerbation of chronic obstructive pulmonary disease with hypoxia and hypercapnia. 4. Severe debility. 5. History of esophageal cancer. TREATMENT PLAN: The patient to continue on current antibiotics. The patient will need IV vancomycin and antibiotics to cover gram-negative as well. We will discuss with the primary team. The patient would benefit from going to a SNF for ongoing care for rehabilitation. The patient refused SNF to the primary team. Other options are being discussed with the patient and family. The patient will need antibiotics for extended period of time before she will be stable enough to go home, where she has a poor system at this time. We will continue to follow this case. FITO SOLIS DO [place], [place] PROGRESS NOTE NAME: BENTLEY FAGAN UNIT #: [id number] ROOM: 526 DOCTOR: FITO SOLIS DO BIRTHDATE: [birth year] SAHIL MANNING MD CM:GRAHAM [id number] FITO SOLIS DO 05/21/17 2233 interface
--- NOTE | ~2017-05-16 | PR ---
[place], [place] PROGRESS NOTE [id number] UN[facility] #: [id number] ROOM: 526 DOCTOR: FITO SOLIS DO BIRTHDATE: [birth year] DOS: 05/20/2017 SUBJECTIVE: The patient is seen and examined at bedside before bronchoscopy this morning. The patient continues to have shortness of breath, productive cough and sputum production with some wheezing. No improvement today compared to yesterday. OBJECTIVE: VITAL SIGNS: Temperature 99.2, pulse is 101, respirations 20, blood pressure 150/72, pulse ox is 92% on 2 liters nasal cannula. LABORATORY DATA: CBC: White count 10.7, hemoglobin is 8.5, hematocrit 30.1, platelet count 487. Chemistries grossly negative. Throat culture ____culture shows MRSA. Blood cultures remain negative. Bronchial washing is pending. GENERAL APPEARANCE: The patient is cachectic with poor malnutrition, alert, awake, in mild to moderate distress. HEENT: Eyes are clear. No injection. Nares are patent. Mucous membranes are moist. NECK: Supple, nontender without lymphadenopathy. CARDIOVASCULAR: Regular rate and rhythm. No murmurs, gallops or rubs. PULMONARY: Expiratory wheezing, diminished breath sounds with bilateral rhonchi and rales in the lung bases. ABDOMEN: Nontender. Positive bowel sounds. EXTREMITIES: Upper and lower extremities are clear of edema, erythema, clubbing or cyanosis IMPRESSION: 1. ____ mucus plugs appreciated in all lung bowens on bronchoscopy. 2. Pneumonitis. 3. Chronic obstructive pulmonary disease exacerbation. 4. Malfunctioning PEG-tube.. 5. History of head and neck cancer along with lung cancer. PLAN: The PEG tube was adjusted by Dr. Mcclain at bedside yesterday and it seems to be functioning properly. Bronchoscopy was performed, but cultures are pending. Continue with current antibiotics, breathing treatments and steroids. We will continue to follow the patient and adjust the antibiotics based on the cultures. No change in plan at this time. The patient is expected to have a mild to moderate improvement after the bronchoscopy given the extent of the mucus plugging that was removed. FITO SOLIS DO [place], [place] PROGRESS NOTE NAME: BENTLEY FAGAN UNIT #: [id number] ROOM: 526 DOCTOR: FITO SOLIS DO BIRTHDATE: [birth year] SAHIL MANNING MD CM:PNJAYDEN [id number] FITO SOLIS DO 05/20/17 1606 interface
[2017-05-16 15:21] VITALS: BP 150/100
[2017-05-16 16:01] LABS: HEMATOCRIT 32.6 % (37.0-47.0); HEMOGLOBIN 9.1 g/dl (12.0-16.0); MEAN CELL VOLUME 78.4 fl (81.0-99.0); MEAN CORPUSCULAR HGB 21.9 pg (27.0-31.0); MEAN CORPUSCULAR HGB CONC 27.9 g/dl (33.0-37.0); MEAN PLATELET VOLUME 10.2 fl (9.6-12.3); PLATELET COUNT AUTOMATED 511 10*3/uL (130-400); RED BLOOD COUNT 4.16 10*6/uL (4.10-5.10); RED CELL DISTRI WIDTH 16.4 % (0-14.5); WHITE BLOOD COUNT 14.4 10*3/uL (4.8-10.8)
[2017-05-16 16:19] LABS: ALKALINE PHOSPHATASE 71 U/L (45-117); BUN 14 mg/dl (7-24); CHLORIDE 102 mmol/L (98-107); CREATININE 0.72 mg/dL (0.55-1.02); SGOT/AST 14 IU/L (3-35); SGPT/ALT 16 U/L (12-78); SODIUM 140 mmol/L (136-145); TOTAL PROTEIN 7.2 gm/dL (6.4-8.2)
[2017-05-16 16:26] LABS: TROPONIN I < 0.015 ng/ml (<0.045)
[2017-05-16 16:30] LABS: PLATELET SUFFICIENCY HIGH (NORMAL); POLYCHROMASIA SLIGHT; TOTAL CELLS COUNTED 100 #CELLS
[2017-05-16 16:31] LABS: STOMATOCYTE FEW
[2017-05-16 16:32] LABS: OVALOCYTES FEW
[2017-05-16 16:40] LABS: BILIRUBIN NEGATIVE (NEGATIVE); BLOOD TRACE-LYSED (NEGATIVE); CLARITY CLEAR (CLEAR); COLOR YELLOW (YELLOW); GLUCOSE NEGATIVE (NEGATIVE); KETONE NEGATIVE (NEGATIVE); LEUKO ESTERASE NEGATIVE (NEGATIVE); NITRITE NEGATIVE (NEGATIVE); PH 5.5 (5.0-9.0); SPECIFIC GRAVITY 1.015 (1.005-1.030); UROBILINOGEN 0.2 E.U./dl (0.2-1.0)
[2017-05-16 16:53] LABS: BACTERIA TRACE; WBC 0-2 wbc/hpf (0-5)
[2017-05-16 17:58] VITALS: BP 123/69
[2017-05-16 18:00] VITALS: BP 123/96
[2017-05-16] MEDS ORDERED: SYMB160 INH (18:23)
[2017-05-16] MEDS ORDERED: SPIRIVA18 MCG PO (18:23)
[2017-05-16 20:00] VITALS: BP 165/87
[2017-05-17] VITALS: BP 96/66
[2017-05-17 07:10] LABS: HEMATOCRIT 28.8 % (37.0-47.0); HEMOGLOBIN 8.3 g/dl (12.0-16.0); MEAN CELL VOLUME 79.6 fl (81.0-99.0); MEAN CORPUSCULAR HGB 22.9 pg (27.0-31.0); MEAN CORPUSCULAR HGB CONC 28.8 g/dl (33.0-37.0); MEAN PLATELET VOLUME 10.6 fl (9.6-12.3); PLATELET COUNT AUTOMATED 434 10*3/uL (130-400); RED BLOOD COUNT 3.62 10*6/uL (4.10-5.10); RED CELL DISTRI WIDTH 16.4 % (0-14.5)
[2017-05-17 07:39] LABS: BUN 15 mg/dl (7-24); CHLORIDE 106 mmol/L (98-107); CHOLESTEROL 94 mg/dL (<200); CREATININE 0.76 mg/dL (0.55-1.02); HDL CHOLESTEROL 42 mg/dl (40-60); LDL CHOLESTEROL 39 mg/dL (9-159); PHOSPHOROUS 3.2 mg/dL (2.5-4.9); POTASSIUM 4.9 mmol/L (3.5-5.1); SODIUM 141 mmol/L (136-145); TRIGLYCERIDES 65 mg/dl (<150); VLDL CHOLESTEROL 13 mg/dL (6-40)
[2017-05-17 07:47] LABS: THYROID STIM HORMONE (HS) 0.118 uIU/ml (0.358-4.75)
[2017-05-17 07:50] LABS: MICROCYTOSIS SLIGHT; OVALOCYTES FEW; PLATELET SUFFICIENCY HIGH (NORMAL); POLYCHROMASIA SLIGHT; TOTAL CELLS COUNTED 100 #CELLS
[2017-05-17 08:00] VITALS: BP 125/51
[2017-05-17 12:00] VITALS: BP 136/67
[2017-05-17 16:00] VITALS: BP 139/98
[2017-05-17 20:00] VITALS: BP 140/73
[2017-05-18] VITALS: BP 165/87
[2017-05-18 07:01] LABS: HEMATOCRIT 28.2 % (37.0-47.0); HEMOGLOBIN 7.9 g/dl (12.0-16.0); MEAN CELL VOLUME 78.1 fl (81.0-99.0); MEAN CORPUSCULAR HGB 21.9 pg (27.0-31.0); MEAN PLATELET VOLUME 10.2 fl (9.6-12.3); PLATELET COUNT AUTOMATED 470 10*3/uL (130-400); RED BLOOD COUNT 3.61 10*6/uL (4.10-5.10); RED CELL DISTRI WIDTH 16.4 % (0-14.5); WHITE BLOOD COUNT 13.1 10*3/uL (4.8-10.8)
[2017-05-18 07:52] LABS: MICROCYTOSIS SLIGHT; PLATELET SUFFICIENCY HIGH (NORMAL); TOTAL CELLS COUNTED 100 #CELLS
[2017-05-18 08:00] VITALS: BP 149/74
[2017-05-18 16:00] VITALS: BP 148/90
[2017-05-18 20:00] VITALS: BP 140/78
[2017-05-19 06:56] LABS: HEMATOCRIT 31.2 % (37.0-47.0); HEMOGLOBIN 8.8 g/dl (12.0-16.0); MEAN CELL VOLUME 79.4 fl (81.0-99.0); MEAN CORPUSCULAR HGB 22.4 pg (27.0-31.0); MEAN CORPUSCULAR HGB CONC 28.2 g/dl (33.0-37.0); MEAN PLATELET VOLUME 10.3 fl (9.6-12.3); PLATELET COUNT AUTOMATED 520 10*3/uL (130-400); RED BLOOD COUNT 3.93 10*6/uL (4.10-5.10); RED CELL DISTRI WIDTH 16.6 % (0-14.5); WHITE BLOOD COUNT 13.9 10*3/uL (4.8-10.8)
[2017-05-19 07:16] LABS: OVALOCYTES FEW; PLATELET SUFFICIENCY HIGH (NORMAL); TOTAL CELLS COUNTED 100 #CELLS
[2017-05-19 07:31] LABS: CHLORIDE 106 mmol/L (98-107); POTASSIUM 4.3 mmol/L (3.5-5.1); SODIUM 143 mmol/L (136-145)
[2017-05-19 07:34] LABS: BUN 15 mg/dl (7-24); CREATININE 0.63 mg/dL (0.55-1.02)
[2017-05-19 08:00] VITALS: BP 165/83
[2017-05-19 12:00] VITALS: BP 111/67
[2017-05-19 16:00] VITALS: BP 157/79
[2017-05-19 20:00] VITALS: BP 137/73
[2017-05-20] VITALS (8 sets, daily range): BP systolic 132–166; BP diastolic 70–92
[2017-05-20 06:00] LABS: HEMATOCRIT 30.1 % (37.0-47.0); HEMOGLOBIN 8.5 g/dl (12.0-16.0); MEAN CORPUSCULAR HGB 22.3 pg (27.0-31.0); MEAN CORPUSCULAR HGB CONC 28.2 g/dl (33.0-37.0); MEAN PLATELET VOLUME 9.9 fl (9.6-12.3); PLATELET COUNT AUTOMATED 487 10*3/uL (130-400); RED BLOOD COUNT 3.81 10*6/uL (4.10-5.10); RED CELL DISTRI WIDTH 16.5 % (0-14.5); WHITE BLOOD COUNT 10.7 10*3/uL (4.8-10.8)
[2017-05-20 06:08] LABS: BUN 17 mg/dl (7-24); CHLORIDE 108 mmol/L (98-107); CREATININE 0.62 mg/dL (0.55-1.02); POTASSIUM 4.3 mmol/L (3.5-5.1); SODIUM 145 mmol/L (136-145)
[2017-05-20 06:12] LABS: PREALBUMIN 14 mg/dl (20-40)
[2017-05-20 07:03] LABS: TOTAL CELLS COUNTED 100 #CELLS
[2017-05-20 07:04] LABS: MICROCYTOSIS SLIGHT; OVALOCYTES FEW; PLATELET SUFFICIENCY HIGH (NORMAL); POLYCHROMASIA SLIGHT; SCHISTOCYTES OCCASIONAL
[2017-05-21] VITALS: BP 141/71
[2017-05-21 06:45] LABS: HEMOGLOBIN 7.5 g/dl (12.0-16.0); MEAN CELL VOLUME 78.5 fl (81.0-99.0); MEAN CORPUSCULAR HGB 21.8 pg (27.0-31.0); MEAN CORPUSCULAR HGB CONC 27.8 g/dl (33.0-37.0); MEAN PLATELET VOLUME 10.1 fl (9.6-12.3); PLATELET COUNT AUTOMATED 438 10*3/uL (130-400); RED BLOOD COUNT 3.44 10*6/uL (4.10-5.10); RED CELL DISTRI WIDTH 16.5 % (0-14.5); WHITE BLOOD COUNT 12.6 10*3/uL (4.8-10.8)
[2017-05-21 07:33] LABS: BURR CELLS FEW; OVALOCYTES FEW; PLATELET SUFFICIENCY HIGH (NORMAL); POLYCHROMASIA SLIGHT; TOTAL CELLS COUNTED 100 #CELLS
[2017-05-21 07:41] VITALS: BP 149/74
[2017-05-21 12:00] VITALS: BP 154/65
[2017-05-21 15:08] LABS: ACID FAST SMEAR Negative (.); ACID FAST SPEC PROCESSING Concentration (.)
[2017-05-21 16:00] VITALS: BP 156/53
[2017-05-21 20:00] VITALS: BP 158/76
[2017-05-22] VITALS: BP 147/76
[2017-05-22 07:37] LABS: HEMATOCRIT 29.5 % (37.0-47.0); HEMOGLOBIN 8.4 g/dl (12.0-16.0); MEAN CELL VOLUME 79.3 fl (81.0-99.0); MEAN CORPUSCULAR HGB 22.6 pg (27.0-31.0); MEAN CORPUSCULAR HGB CONC 28.5 g/dl (33.0-37.0); MEAN PLATELET VOLUME 10.1 fl (9.6-12.3); PLATELET COUNT AUTOMATED 525 10*3/uL (130-400); RED BLOOD COUNT 3.72 10*6/uL (4.10-5.10); RED CELL DISTRI WIDTH 16.5 % (0-14.5); WHITE BLOOD COUNT 13.4 10*3/uL (4.8-10.8)
[2017-05-22 08:00] VITALS: BP 136/84
[2017-05-22 08:03] LABS: PLATELET SUFFICIENCY HIGH (NORMAL); TOTAL CELLS COUNTED 100 #CELLS
[2017-05-22 08:04] LABS: MICROCYTOSIS SLIGHT; OVALOCYTES FEW
[2017-05-22 08:05] LABS: CHLORIDE 100 mmol/L (98-107); POTASSIUM 4.4 mmol/L (3.5-5.1); SODIUM 140 mmol/L (136-145)
[2017-05-22 08:13] LABS: ALBUMIN 2.4 gm/dl (3.1-4.5); ALKALINE PHOSPHATASE 45 U/L (45-117); BUN 16 mg/dl (7-24); CREATININE 0.59 mg/dL (0.55-1.02); SGOT/AST 11 IU/L (3-35); SGPT/ALT 18 U/L (12-78); TOTAL PROTEIN 5.8 gm/dL (6.4-8.2)
[2017-05-22 12:00] VITALS: BP 149/68
[2017-05-22 16:12] VITALS: BP 150/67
[2017-05-22 20:00] VITALS: BP 106/58
[2017-05-23 04:00] VITALS: BP 146/60
[2017-05-23 07:20] LABS: BASO % 0.1 % (0.0-1.0); EOS # 0.1 10*3/uL (0.0-0.4); HEMATOCRIT 32.3 % (37.0-47.0); HEMOGLOBIN 8.8 g/dl (12.0-16.0); LYMPH # 0.3 10*3/uL (1.3-4.4); LYMPH % 2.5 % (27.0-41.0); MEAN CELL VOLUME 79.4 fl (81.0-99.0); MEAN CORPUSCULAR HGB 21.6 pg (27.0-31.0); MEAN CORPUSCULAR HGB CONC 27.2 g/dl (33.0-37.0); MONO # 0.9 10*3/uL (0.1-1.0); MONO % 7.7 % (3.0-9.0); NEUT # 10.1 10*3/uL (2.3-7.9); NEUT % 87.7 % (47.0-73.0); PLATELET COUNT AUTOMATED 541 10*3/uL (130-400); RED BLOOD COUNT 4.07 10*6/uL (4.10-5.10); RED CELL DISTRI WIDTH 16.5 % (0-14.5); WHITE BLOOD COUNT 11.5 10*3/uL (4.8-10.8)
[2017-05-23 07:53] LABS: BUN 16 mg/dl (7-24); CHLORIDE 101 mmol/L (98-107); POTASSIUM 4.1 mmol/L (3.5-5.1); SODIUM 142 mmol/L (136-145)
[2017-05-23 07:54] LABS: CREATININE 0.56 mg/dL (0.55-1.02)
[2017-05-23 08:00] VITALS: BP 139/69
[2017-05-23 12:00] VITALS: BP 138/70
[2017-05-23 16:00] VITALS: BP 141/86
[2017-05-23 20:13] VITALS: BP 129/65
[2017-05-24 00:27] VITALS: BP 133/67
[2017-05-24 06:46] LABS: BUN 16 mg/dl (7-24); CHLORIDE 99 mmol/L (98-107); CREATININE 0.59 mg/dL (0.55-1.02); POTASSIUM 4.9 mmol/L (3.5-5.1); SODIUM 142 mmol/L (136-145)
[2017-05-24 06:50] LABS: BASO % 0.1 % (0.0-1.0); EOS # 0.1 10*3/uL (0.0-0.4); EOS % 0.6 % (1.0-4.0); HEMATOCRIT 29.4 % (37.0-47.0); HEMOGLOBIN 8.4 g/dl (12.0-16.0); LYMPH # 0.4 10*3/uL (1.3-4.4); LYMPH % 4.1 % (27.0-41.0); MEAN CELL VOLUME 78.6 fl (81.0-99.0); MEAN CORPUSCULAR HGB 22.5 pg (27.0-31.0); MEAN CORPUSCULAR HGB CONC 28.6 g/dl (33.0-37.0); MEAN PLATELET VOLUME 9.8 fl (9.6-12.3); MONO # 0.6 10*3/uL (0.1-1.0); MONO % 6.3 % (3.0-9.0); NEUT # 8.6 10*3/uL (2.3-7.9); NEUT % 87.9 % (47.0-73.0); PLATELET COUNT AUTOMATED 549 10*3/uL (130-400); RED BLOOD COUNT 3.74 10*6/uL (4.10-5.10); RED CELL DISTRI WIDTH 16.5 % (0-14.5); WHITE BLOOD COUNT 9.7 10*3/uL (4.8-10.8)
[2017-05-24 08:24] VITALS: BP 139/69
[2017-05-24 12:00] VITALS: BP 136/69
[2017-05-24 16:00] VITALS: BP 128/80
[2017-05-24 20:00] VITALS: BP 157/72
[2017-05-25] VITALS: BP 160/62
[2017-05-25 08:00] VITALS: BP 122/76
[2017-05-25 08:15] VITALS: BP 122/76
[2017-05-25 12:00] VITALS: BP 126/74
== END 2017-05-25 17:03 | disposition home or self-care (01) | DRG 393 ==
LOC: ED 15:16 → 5E 17:22 → EDHOLD 17:22 → 5E 17:24
PROVIDERS: Family Medicine; Internal Medicine; Internal Medicine Critical Care Medicine; Nurse Practitioner Family; Student in an Organized Health Care Education/Training Program
PROC: 0BC28ZZ Extirpation of Matter from Carina, Via Natural or Artificial Opening Endoscopic (ICD-10-PCS; principal; 2017-05-20)
PROC: 0BC18ZZ Extirpation of Matter from Trachea, Via Natural or Artificial Opening Endoscopic (ICD-10-PCS; 2017-05-20)
PROC: 0BC98ZZ Extirpation of Matter from Lingula Bronchus, Via Natural or Artificial Opening Endoscopic (ICD-10-PCS; 2017-05-20)
PROC: 0BC48ZZ Extirpation of Matter from Right Upper Lobe Bronchus, Via Natural or Artificial Opening Endoscopic (ICD-10-PCS; 2017-05-20)
PROC: 0BC88ZZ Extirpation of Matter from Left Upper Lobe Bronchus, Via Natural or Artificial Opening Endoscopic (ICD-10-PCS; 2017-05-20)
PROC: 0BC58ZZ Extirpation of Matter from Right Middle Lobe Bronchus, Via Natural or Artificial Opening Endoscopic (ICD-10-PCS; 2017-05-20)
PROC: 0BC38ZZ Extirpation of Matter from Right Main Bronchus, Via Natural or Artificial Opening Endoscopic (ICD-10-PCS; 2017-05-20)
PROC: 0BC78ZZ Extirpation of Matter from Left Main Bronchus, Via Natural or Artificial Opening Endoscopic (ICD-10-PCS; 2017-05-20)
PROC: 0BC68ZZ Extirpation of Matter from Right Lower Lobe Bronchus, Via Natural or Artificial Opening Endoscopic (ICD-10-PCS; 2017-05-20)
PROC: 0BCB8ZZ Extirpation of Matter from Left Lower Lobe Bronchus, Via Natural or Artificial Opening Endoscopic (ICD-10-PCS; 2017-05-20)
DX: K94.23 Gastrostomy malfunction (principal); A41.9 Sepsis, unspecified organism; E43 Unspecified severe protein-calorie malnutrition; E87.3 Alkalosis; J96.11 Chronic respiratory failure with hypoxia; J18.9 Pneumonia, unspecified organism; T17.890A Other foreign object in other parts of respiratory tract causing asphyxiation, initial encounter; J44.1 Chronic obstructive pulmonary disease with (acute) exacerbation; J98.11 Atelectasis; Z68.1 Body mass index [BMI] 19.9 or less, adult; K94.22 Gastrostomy infection; R13.12 Dysphagia, oropharyngeal phase; D47.3 Essential (hemorrhagic) thrombocythemia; A49.02 Methicillin resistant Staphylococcus aureus infection, unspecified site; E03.9 Hypothyroidism, unspecified; J20.9 Acute bronchitis, unspecified; J44.0 Chronic obstructive pulmonary disease with (acute) lower respiratory infection; D50.9 Iron deficiency anemia, unspecified; E55.9 Vitamin D deficiency, unspecified; F41.1 Generalized anxiety disorder; R53.81 Other malaise; Y83.8 Other surgical procedures as the cause of abnormal reaction of the patient, or of later complication, without mention of misadventure at the time of the procedure; X58.XXXA Exposure to other specified factors, initial encounter; Y99.8 Other external cause status; Z90.89 Acquired absence of other organs; Z85.01 Personal history of malignant neoplasm of esophagus; Z99.81 Dependence on supplemental oxygen; Z85.21 Personal history of malignant neoplasm of larynx; Z92.3 Personal history of irradiation; Z87.891 Personal history of nicotine dependence; Z82.49 Family history of ischemic heart disease and other diseases of the circulatory system; Z79.899 Other long term (current) drug therapy; Z85.118 Personal history of other malignant neoplasm of bronchus and lung; Z92.21 Personal history of antineoplastic chemotherapy; Z85.89 Personal history of malignant neoplasm of other organs and systems; Y92.89 Other specified places as the place of occurrence of the external cause; Y93.89 Activity, other specified

== ENCOUNTER 2017-08-13 16:28 | Inpatient (IN) | payer MEDICARE ==
[~2017-08-13] VITALS: Ht 165.1 cm; Wt 47.7 kg
--- NOTE | ~2017-08-13 | CON ---
[place], [place] REPORT OF CONSULTATION NAME: BENTLEY FAGAN UNIT #: [id number] ROOM: 531 DOCTOR: SAHIL ANGUIANO MD BIRTHDATE: [birth year] DOS: 08/14/2017 PULMONARY CONSULTATION, EVALUATION, AND, MANAGEMENT CONSULTATION REQUESTED BY: Hospitalist services. REASON FOR CONSULTATION: For assessment of the current acute pneumonia. HISTORY OF PRESENT ILLNESS: This is a 67-year-old white female patient who has been admitted to the hospital as the patient has been noted with a fall at home. She was noted with a pain in the elbow and hitting her forehead. The patient has not been noted with any loss of consciousness. The patient does have symptoms of cough with chest congestion. She did complain of some shortness of breath. She has not reported any symptoms of acute chest pain or hemoptysis. REVIEW OF SYSTEMS: Noted extremely limited for this patient. The patient was noted with very weak voice and unable to answer the question. I am not sure if she truly understand all the questions as well as the content of the question. Remaining history of the patient, I reviewed medical record for this hospitalization by the other physician and my past consultation records. Review of systems cannot be correctly done for this patient because of lack of good verbal communication for understanding questions and answering the questions. The past hospitalization noted for this patient in 04/2017. The patient was treated with ____ acute exacerbation of chronic obstructive pulmonary disease, acute pneumonia, respiratory failure, and others. PAST MEDICAL HISTORY: Noted with 1. History of chronic hypoxic respiratory failure. 2. Chronic obstructive pulmonary disease. 3. 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 4. Right lower lobe nonsmall cell lung cancer of the patient as well. 5. Anxiety disorder. 6. Oropharyngeal dysphagia. 7. Intubation and mechanical ventilation. 8. Past nicotine abuse. 9. Past chronic debility. PAST SURGICAL HISTORY: 1. Hiatal hernia repair. 2. Therapeutic bronchoscopy done in 2015. 3. Direct laryngoscopy with biopsy of the laryngeal cancer established in 2015. 4. PEG tube insertion, subsequent removal. 5. Management of cancer nonsmall cell of the right lower lobe and the larynx cancer with radiation therapy. SOCIAL HISTORY: The patient is , has 2 children, lived at home with her daughter, has not been reported any symptoms of alcohol or illicit drug use. [place], [place] REPORT OF CONSULTATION NAME: BENTLEY FAGAN UNIT #: [id number] ROOM: 531 DOCTOR: SAHIL ANGUIANO MD BIRTHDATE: [birth year] Tobacco is noted from age of [id number], pack of cigarettes per day that was discontinued in 2016. FAMILY HISTORY: Unknown. MEDICATIONS: The current medications administered noted use of Lovenox, Solu-Medrol 60 mg q.8 hours, Mucinex 1200 mg p.o. b.i.d., DuoNeb, IV vancomycin, meropenem, and Levaquin. DRUG ALLERGIES: She is noted as no known drug allergies. PHYSICAL EXAMINATION: GENERAL: A 67-year-old female who has been noted currently sitting on the bed without any acute distress. Height of 5 feet 5 inches, weight 105 pounds, and BMI 17.4. VITAL SIGNS: Normal temperature 99.2 degrees Fahrenheit in the last 24 hours, respiratory rate 18-20, heart rate 78-99, blood pressure and 107/47-111/50. Pulse oxygen saturation on 3 liter nasal cannula is 94% saturation. HEENT: Examination shows head was atraumatic. Eyes nonicterus. NECK: Supple. The voice was noted quite weak with hoarseness. CARDIOVASCULAR SYSTEM: S1, S2 is audible. No added sounds. LUNGS: The patient was noted with moderate decreased breath sounds noted in the lungs bilaterally without any crackles. Expiratory wheezing noted in the lungs bilaterally. ABDOMEN: Soft, nontender. EXTREMITIES: Noted without any acute edema. MUSCULOSKELETAL SYMPTOMS: Noted with loss of muscle mass, which is chronic. Over debility. No focal abnormality for the patient noted of the musculoskeletal system. CENTRAL NERVOUS SYSTEM: Appeared to be intact. The patient's cranial nerve examination could not be performed, but there were no focal neurologic deficits. VISIBLE SKIN: No lesions or rashes. LABORATORY DATA: CBC yesterday on admission, hemoglobin 7.3, hematocrit 26, and platelet count normal. CMP of the patient yesterday on admission, BUN normal and creatinine was normal. AST 48. Influenza A and B, nasal washing antigen for the patient noted with positive Influenza A infection. The arterial blood gas of the patient on 3 liters, pH of 7.28, pCO2 of 56, and pO2 of 126 that was done on 3 liter nasal cannula supplementation of oxygen. Troponin noted minimally elevated at 0.51. PT and PTT this morning normal. CMP this morning, BUN 25, creatinine was normal. Total protein of 5.7 and albumin 2.7. Second set of troponin noted similarly elevated as previously. CBC this morning, hemoglobin 6.6, hematocrit 23.8, and platelet count 286,000. The CT scan of the patient, which was done for the patient on this admission was personally reviewed, centrilobular emphysema changes were noted in the lungs diffusely with assist, also noted a small thin walled in the right middle lobe as well as a patchy infiltration, and some area of consolidation noted mainly in the left lower lobe. There were no pleural effusions. There were no discrete nodules were visible. There was no lymphadenopathy noted, which was gross. Lack of the IV contrast does limit the assessment of the mediastinal structure [place], [place] REPORT OF CONSULTATION NAME: BENTLEY FAGAN UNIT #: [id number] ROOM: 53 DOCTOR: NIGEL ANSARI MD,[facility] BIRTHDATE: [address] scan of the head that was done for the patient on 08/13/2017 in the Emergency Room was completed, no acute intracranial pathology reported. CT scan of cervical spine also described no acute subluxation of the fracture of the cervical spine. IMPRESSION: 1. The patient who has been currently admitted to the hospital noted positive influenza A infection, also acute pneumonia would be considered aspiration in the left lower lobe as the bacterial component this time or not was unknown. 2. The patient with oropharyngeal dysphagia, past history of laryngeal cancer. 3. Overall severe debility with gross appearance of a moderate protein-calorie malnutrition. 4. Chronic hoarseness secondary to the past cancer of the larynx, treated with radiation therapy as well. 5. Severe anemia without any obvious known blood loss. PLAN OF MANAGEMENT: The patient has been getting many broad-spectrum intravenous antibiotic at this time that would not be needed. ____ therapy of the patient to be continued on this patient. Discontinue the meropenem and the vancomycin at the present time is not needed for acute exacerbation of COPD. Solu-Medrol dose will be continued 40 mg q.8 hours and the assessment component also added for this patient as acute exacerbation of COPD. Home medication has been reviewed for the patient that will be continued as previously ordered. Usual care. The prealbumin level will be ordered. The patient might benefit from an another evaluation for the dysphagia assessment. Modified barium swallow as well. Collect the sputum for Gram stain and culture. The patient is able to expectorate any sputum. Order the urine for Legionella antigen as well as the Pneumococcal antigen in the urine as well. Monitor chest x-ray closely with followup chest x-ray to be done in the next couple of days. Clinical course of the pneumonia. The patient will be continued. Any additional change in treatment will be recommended based on the progression of the illness. Continuation of the DVT prophylaxis. Reduction of Solu-Medrol will be started with improvement in the wheezing and overall respiratory status. Titrate oxygen supplementation, maintain saturation 92% or greater. Continuation of the DuoNeb q.4 hours. Thanks for allowing me to participate in the care of this patient. [place], [place] REPORT OF CONSULTATION NAME: BENTLEY FAGAN UNIT #: [id number] ROOM: 531 DOCTOR: SAHIL ANGUIANO MD BIRTHDATE: [birth year] SAHIL MANNING MD CM:CONSTR:REPORT OF CONSULTATION 1434 08/15/17 0639 interface
--- NOTE | ~2017-08-13 | PR ---
[place], [place] PROGRESS NOTE NAME: BENTLEY FAGAN [facility] [id number] UNIT #: [id number] ROOM: 531 DOCTOR: NIGEL ANSARI MD,SAHIL BIRTHDATE: [birth year] DOS: PULMONARY PROGRESS NOTE SUBJECTIVE: The patient has been noted on the antibiotics at the present time. The coughing has been noted partially decreased. She was also noted comfortable at this time and resting in the bed with cough noted intermittently. Denies symptoms of chest pain or any abdominal pain. Denies symptoms of nausea or vomiting. She has been currently administered Solu-Medrol as well. The patient denies symptoms of hemoptysis. There were no symptoms of chest pain reported. The patient was noted with chronic hoarseness. Denies symptoms of headaches. PHYSICAL EXAMINATION: VITAL SIGNS: Normal temperature, respiratory rate 18, heart rate 70, blood pressure 141/70-148/74, and pulse oxygen saturation on 2 liters nasal cannula is 100% saturation. HEENT: Examination shows head was atraumatic. Eyes nonicterus. NECK: Supple. CARDIOVASCULAR: S1, S2 is audible. LUNGS: The patient was noted without any crackles or wheezing. Breaths are noted mildly decreased bilaterally. ABDOMEN: Soft, nontender. Bowel sounds present. EXTREMITIES: The patient noted no acute changes. MUSCULOSKELETAL: Without any acute deformity. SKIN: Noted without lesions or rashes. CENTRAL NERVOUS SYSTEM: The patient was intact. LABORATORY DATA: Bronchial washing culture was noted heavy growth of ESBL producing E. coli. IMPRESSION: 1. The patient with acute Escherichia coli pneumonia in the left lower lobe. 2. Acute exacerbation of chronic obstructive pulmonary disease. 3. Oropharyngeal dysphagia. 4. History of cancer of the lung as well as the larynx. PLAN OF MANAGEMENT: The patient has been started on meropenem yesterday that will be continued as the drug of choice for the current infection. No other antibiotics at this time would be needed. Bronchodilator to be continued. The dose of Solu-Medrol will be changed to 40 mg daily dosing since there was no wheezing. The patient might require the placement in the group home facility. A new chest x-ray was to be ordered to be done tomorrow to reassess the progression of the pneumonia. Other supportive therapy and plan of management to be continued. Maximize the nutrition support as well. Ordered the prealbumin level in the morning to assess the overall nutritional status. Other supportive therapy and plan and management as well. Usual care, other therapy, and plan of management. Additional treatment changes to be made for the patient based on the progression of the illness. [place], [place] PROGRESS NOTE NAME: BENTLEY FAGAN UNIT #: [id number] ROOM: 531 DOCTOR: SAHIL ANGUIANO MD BIRTHDATE: [birth year] SAHIL MANNING MD CM:PNTRANS [id number] SAHIL ANSARI MD 08/21/17 0141 interface
--- NOTE | ~2017-08-13 | PR ---
[place], [place] PROGRESS NOTE NAME: BENTLEY FAGAN UNIT #: [id number] ROOM: 531 DOCTOR: SAHIL ANGUIANO MD BIRTHDATE: [birth year] DOS: 08/18/2017 SUBJECTIVE: The patient has been noted comfortable at this time without any acute new changes. The patient has not been reported with any symptoms of chest pain or any abdominal pain. She has been n.p.o. past midnight for the bronchoscopy at the present time. The patient was getting regular food as recommended by the dietary service after the modified barium swallow completion. She has been noted with coughing and chest congestion. No sputum expectoration. Denies symptoms of headache. Remaining systems were noted normal. OBJECTIVE: VITAL SIGNS: Showed normal temperature, respiratory rate 20, heart rate 69, blood pressure is 164/67-147/81. Pulse oxygen saturation of the patient was noted as 99% saturation on 3 liters nasal cannula. HEENT: Head atraumatic. Eyes nonicterus. NECK: Supple. CARDIOVASCULAR: S1, S2 audible. LUNGS: The patient was noted without any wheezing or crackles at the present time. ABDOMEN: Soft, nontender. EXTREMITIES: Without any acute edema. MUSCULOSKELETAL: Without acute deformity. SKIN: No lesions or rashes. Scattered bruising, which is chronic, dryness of the skin. CENTRAL NERVOUS SYSTEM: General weakness without any focal deficit. IMPRESSION: 1. Acute pneumonia of the patient secondary to aspiration, very likely left lower lobe with gram-positive, gram-negative infection would be considered. 2. The patient with past history of cancer of the larynx, with radiation therapy and lung cancer in the right lower lobe, treated with radiation therapy and chemotherapy. PLAN OF MANAGEMENT: Continue the patient's current therapy, plan of management, proceed with the bronchoscopy for assessment of the cough and current pulmonary infiltration, which is noted to be progressing. Other supportive therapy, plan of management. Addition change in the treatment will be ordered for the patient based on the progression of the illness. [place], [place] PROGRESS NOTE NAME: BENTLEY FAGAN UNIT #: [id number] ROOM: 531 DOCTOR: SAHIL ANGUIANO MD BIRTHDATE: [birth year] SAHIL MANNING MD CM:PNTRANS [phone] [id number] SAHIL ANSARI MD 08/19/17 0250 interface
--- NOTE | ~2017-08-13 | PROC NOTE ---
[place], [place] PROCEDURE NOTE NAME: BENTLEY FAGAN UNIT #: [id number] ROOM: 531 DOCTOR: GEE GUPTA BIRTHDATE: [birth year] DOS: 08/16/2017 MODIFIED BARIUM SWALLOW LOCATION: [facility], room 532, bed 1. ORDERING PHYSICIAN: Shamar Olivera DO RADIOLOGIST: Dr. Rodríguez. BACKGROUND INFORMATION: The patient is a 67-year-old female who is seen for modified barium swallow. This test was ordered due to possible dysphagia and history of PEG tube. This patient is known to this department from prior services. She was admitted to the hospital at this time due to suffering a fall at home. Medical history is significant for COPD, history of dysphagia, acute respiratory failure, past history of laryngeal cancer. A prior modified barium swallow was completed 03/17/2017. At that time, she presented with a moderate oropharyngeal dysphagia and was recommended a soft diet and nectar thick liquids. The patient is known to be noncompliant with recommendations at times eating and drinking what she wants to. She currently receives a regular diet and thin liquids. For today's assessment, the patient was alert and able to follow commands. Vocal quality was hoarse and at times making her very difficult to understand. The patient was receiving oxygen via nasal cannula. Oral peripheral examination revealed edentulous status. The patient exhibited mildly reduced labial strength and range of motion and mild to moderately reduced lingual strength and range of motion. The patient was able to volitionally swallow. Her volitional cough was weak. METHODS AND MATERIALS USED FOR THE EXAM: The patient was positioned in the lateral plane and the exam was viewed under fluoroscopy. The patient was presented with a variety of consistencies to assess swallowing skills including applesauce mixed with barium presented in half teaspoon amounts, barium-coated banana and cookie presented in bite size pieces and thin liquid barium taken by cup. ORAL PHASE: The patient achieved adequate labial seal around cup and spoon with no anterior loss. Bolus formation and transit were adequate with all consistencies. Mastication was mild to moderately impaired due to lack of dentition. The patient reported that she could not chew the cookie and eventually spit it out. Tongue to palate contact was within normal limits. Tongue to posterior pharyngeal wall contact was mildly impaired with puree and mild to moderately with solids. Velar functioning was within normal limits with no nasal regurgitation. PHARYNGEAL PHASE: The pharyngeal swallow occurred within a timely manner. Hyolaryngeal elevation was mildly reduced with all consistencies. Epiglottic function was within normal limits. No penetration or aspiration occurred with any consistency. Pooling in the vallecula was observed with puree and soft solid, this cleared with liquid wash. [place], [place] PROCEDURE NOTE NAME: BENTLEY FAGAN UNIT #: [id number] ROOM: 531 DOCTOR: GEE GUPTA BIRTHDATE: [birth year] ESOPHAGEAL PHASE: This phase of the swallow was not formally assessed during this exam. IMPRESSIONS AND RECOMMENDATIONS: Based upon assessment results, this patient exhibited a mild to moderate oral and mild pharyngeal stage dysphagia. Poor mastication was displayed due to edentulous status. Pooling in the vallecula occurred due to reduced tongue to posterior pharyngeal wall contact. Laryngeal elevation was reduced, but despite this no penetration or aspiration occurred with any consistency. Her medical status does place her at risk for aspiration. Recommend a soft diet and thin liquid. Recommend safe swallow precautions such as upright positioning for meals, eating slowly, small bites and sips and alternating liquid and solid. Followup therapy is recommended to ensure safety with highest level diet through education and use of safe swallow precautions. Results and recommendations were shared with the patient who verbalized understanding. Thank you very much for this referral. Should you have any questions regarding this assessment, contact the speech pathology department at [phone]. GEE GUPTA CM:PROCNOTE:PROCEDURE NOTE [id number] GEE GUPTA
--- NOTE | ~2017-08-13 | PR ---
[place], [place] PROGRESS NOTE [id number] UNIT #: [id number] ROOM: 531 DOCTOR: SAHIL ANGUIANO MD BIRTHDATE: [birth year] DOS: 08/17/2017 SUBJECTIVE: The patient was noted comfortable at this time, sitting on the chair, was noted with a cough which was noted nonproductive. Denies symptoms of hemoptysis or chest pain. REVIEW OF SYSTEMS: The limited review of systems could be performed because of the patient's current mental status and physical ability of the patient to have a meaningful conversation. The patient, however, noted comfortable at this time, sitting on the chair, starting to eat her breakfast. OBJECTIVE: VITAL SIGNS: The patient showed normal temperature, respiratory rate 20, heart rate 79, and blood pressure 142/63. The pulse oxygen saturation 3 liters nasal cannula was 99% saturation. HEENT: No acute change. NECK: Supple. CARDIOVASCULAR: S1, S2 audible. LUNGS: Noted moderate. Decreased breath sounds in the lungs bilaterally. There was no wheezing. Crackles are noted. Decreased breaths in the left lower lung. ABDOMEN: Soft, nontender, and flat. EXTREMITIES: Without any acute edema. Chronic loss of muscle mass. SKIN: No lesions or rashes. MUSCULOSKELETAL: Without any acute deformities. GENITOURINARY: The patient was noted awake and alert. No focal deficit which are noted gross. LABORATORY DATA: Labs of the patient reviewed today. The stool for occult blood was noted as negative. The echocardiogram was completed on 08/16/2017, assessed by Dr. Miles, was reviewed and the finding described as no major abnormalities. Chest x-ray that was done yesterday two-view I ordered was reviewed shows increased infiltration noted in the left lower lung, compared with the chest x-ray on admission. IMPRESSION: 1. The patient has been noted with acute pneumonia in the left lower lobe. The patient with increased consolidation noted. 2. The patient with chronic obstructive pulmonary disease as well with acute exacerbation. 3. 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 PLAN OF TREATMENT: The patient will benefit from fibrobronchoscopy that was planned to be done tomorrow morning. The consent could be obtained from the patient's daughter. Decrease the Solu-Medrol dosing for the patient to lower dose 40 mg b.i.d. at the present time. Aspiration precaution for the patient. Usual care. Other supportive therapy, plan of management and care. Continuation of the bronchodilator ____ therapy, plan of management and care. [place], [place] PROGRESS NOTE NAME: BENTLEY FAGAN UNIT #: [id number] ROOM: 531 DOCTOR: NIGEL ANSARI MD,SAHIL BIRTHDATE: [birth year] Additional treatment changes to be made based on the progression of the illness. Assessment and management of the patient was discussed with the Satya Napoles nurse practitioner taking care of this patient today. SAHIL MANNING MD CM:PNTRANS [phone] SAHIL ANSARI MD 08/18/17 0646 interface
--- NOTE | ~2017-08-13 | PR ---
[place], [place] PROGRESS NOTE NAME: BENTLEY FAGAN UNIT #: [id number] ROOM: 531 DOCTOR: NIGEL ANSARI MD,SAHIL BIRTHDATE: [birth year] DOS: 08/19/2017 PULMONARY PROGRESS NOTE SUBJECTIVE: She has been noted comfortable at this time with reduction of symptoms of cough and chest congestion noted post-bronchoscopy. Copious material removed from the endobronchial tree yesterday. She has not been noted any symptoms of chest pain or any hemoptysis. She denies symptoms of nausea or vomiting. The patient has been eating her usual food at this time without difficulty. The remaining systems were reviewed, they were noted all negative. OBJECTIVE: VITAL SIGNS: Showed normal temperature, respiratory rate 18, heart rate 78, blood pressure 154/76 to 163/72. Pulse ox saturation on 3 liters was 94% saturation. HEENT: Showed head was atraumatic, eyes nonicterus. NECK: Supple. Chronic hoarseness. CARDIOVASCULAR: S1, S2 audible. LUNGS: The patient was noted with decreased breath sounds in the left lower lung. ABDOMEN: Soft, nontender. Bowel sounds present. EXTREMITIES: Without any acute edema. MUSCULOSKELETAL: Without any acute deformities. LABORATORY DATA: The culture for the patient of the sputum for 08/17/2017 was reported final results of heavy growth of E. coli, which was noted sensitive to Unasyn, meropenem, imipenem, Zosyn, and tetracycline. The urine for legionella antigen was negative. CT scan of the soft tissue of the neck for this patient was reviewed, described some postoperative radiation changes for this patient in the neck. There were no discrete tumors described. LABORATORY DATA: BMP for the patient, BUN 12, creatinine was normal today, CO2 35. CBC: WBC count 8.5, hemoglobin ____, platelet count 245,000. IMPRESSION: 1. Acute Escherichia coli pneumonia, most likely related to aspiration involving the left lower lobe. 2. Acute exacerbation of chronic obstructive pulmonary disease, which is resolving as well. 3. 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 PLAN OF TREATMENT: Discontinuation of the vancomycin and Levaquin. Continue IV Zosyn as a main antibiotic for the current medical management of acute pneumonia with Escherichia coli. The patient has been currently isolated; however, also follow the results of cultures of the bronchial washing of the patient from yesterday, which shows a severe acute active pneumonia involving the left lower lobe with a copious amount of mucopurulent material removed. Continuation of other plan of therapy for the patient as in progress. Usual care, supportive care. Dose of Solu-Medrol remains the same. [place], [place] PROGRESS NOTE NAME: BENTLEY FAGAN UNIT #: [id number] ROOM: 531 DOCTOR: SAHIL ANGUIANO MD BIRTHDATE: [birth year] SAHIL MANNING MD CM:PNTRANS [id number] SAHIL ANSARI MD 08/19/17 0941 interface
--- NOTE | ~2017-08-13 | PR ---
[place], [place] PROGRESS NOTE NAME: BENTLEY FAGAN UNIT #: [id number] ROOM: 531 DOCTOR: SAHIL ANGUIANO MD BIRTHDATE: [birth year] DOS: 08/15/2017 SUBJECTIVE: The patient noted comfortable at this time without any acute distress. Coughing has been noted without any sputum expectoration. Eating, somewhat modified diet for the patient this morning. Denies symptoms of acute shortness breath or chest pain. Denies symptoms of nausea, vomiting, diarrhea, or any abdominal pain. The patient noted to be awake and alert this morning. OBJECTIVE: VITAL SIGNS: For the patient, which were recorded, showed the temperature noted as normal. The respiratory rate recorded as 22, heart rate 75, blood pressure 156/65-141/67. The pulse oxygen saturation recorded as 97% on 2 liters nasal cannula. HEENT: Shows head was atraumatic. Eyes nonicterus. NECK: Supple. CARDIOVASCULAR: S1, S2 is audible. LUNGS: The patient was noted without any wheezing or crackles at the present time. Breaths are noted decreased in general bilaterally. ABDOMEN: Soft, nontender. EXTREMITIES: Without any acute edema. LABORATORY DATA: Blood culture, no bacterial growth on 08/13/2017, 2 sets. CBC this morning: WBC count normal, hemoglobin 7.9, hematocrit 27.6, platelet count was normal. IMPRESSION: 1. Status post blood transfusion, currently treated for acute aspiration pneumonia, clinically improving with history of chronic obstructive pulmonary disease and chronic oropharyngeal dysphagia. 2. History of past cancer of the larynx and the right lower lobe, which has been more treated with radiation therapy. PLAN OF MANAGEMENT: Continuation of current plan of care the patient has in progress. Other supportive therapy, plan of management, and other treatments without changes. Chest x-ray monitoring for the patient as well. [place], [place] PROGRESS NOTE NAME: EDMUNDO FAGANCE Irma UNIT #: [id number] ROOM: 531 DOCTOR: SAHIL ANGUIANO MD BIRTHDATE: [birth year] SAHIL MANNING MD CM:PNTRANS [id number] SAHIL ANSARI MD 08/16/17 0529 interface
--- NOTE | ~2017-08-13 | PROC NOTE ---
[place], [place] PROCEDURE NOTE NAME: BENTLEY FAGAN UNIT #: [id number] ROOM: 531 DOCTOR: SAHIL ANGUIANO MD BIRTHDATE: [birth year] DOS: 08/18/2017 PREOPERATIVE DIAGNOSES: The patient with acute pneumonia and consolidation in right lower lobe with persistent cough, infected sputum expectoration. POSTOPERATIVE DIAGNOSES: Ongoing acute pneumonia for the patient noted with copious amount of mucopurulent material removed from the endobronchial tree and the left lower lobe bronchi. Scattered mucous impaction there was noted. Most of the postoperative changes for this patient with some tissue damage and prominent tissue noted in the right epiglottis area and the larynx. PROCEDURE DESCRIPTION: Informed consent obtained for the patient from family members. The patient was brought to the OR and placed in supine position. Conscious sedation was administered by the Anesthesia Department. After that, the airway introduced into the mouth. Bronchoscope advanced through the airway into laryngeal area. Epiglottis and vocal cords were seen. The vocal cords were noted somewhat distorted for the patient because of the changes in the right laryngeal area, a mass lesion cannot be excluded. Some necrotic tissue in that area versus very thick crusted secretion cannot be completely excluded. Fullness was noted in the right aryepiglottic fold. The bronchoscope was advanced to the vocal cord, into the tracheal lumen. The tracheal lumen of the patient was identified and noted with moderate amount of purulent secretion, suctioned out at the ivette level. Right upper, right middle, right lower lobe noted small ____ mucus plug, which was cleared up. The left endobronchial tree was noted with copious amount of purulent secretions, suctioned at the ivette level. The left lower lobe opening portion was noted with similar purulent secretion, which was suctioned out with the help of normal saline wash. Acute inflammatory changes noted. Postoperative finding will be discussed with the patient's family members. The CT scan of the neck will be ordered to exclude any mass lesion. Bronchial washings were sent for appropriate cultures. SAHIL MANNING MD CM:PROCNOTE:PROCEDURE NOTE [id number] SAHIL ANSARI MD
--- NOTE | ~2017-08-13 | PR ---
[place], [place] PROGRESS NOTE NAME: BENTLEY FAGAN UNIT #: [id number] ROOM: 531 DOCTOR: NIGEL ANSARI MD,SAHIL BIRTHDATE: [birth year] DOS: 08/16/2017 SUBJECTIVE: The patient has been noted comfortable at this time without acute distress, has been noted some cough, no sputum expectoration. The patient was noted awake and alert. The patient has not been reported any symptoms of chest pain, hemoptysis. OBJECTIVE: VITAL SIGNS: Normal temperature, respiratory rate 18, blood pressure 156/52, heart rate 75. Pulse oxygen saturation 3 liters 97% saturation. HEENT: No acute change. NECK: Supple. CARDIOVASCULAR: S1, S2 is audible. LUNGS: Decreased breath sounds in the right lower lung. There was no wheezing or crackles. ABDOMEN: Soft, nontender and flat. EXTREMITIES: Without any acute edema, loss of muscle mass. IMPRESSION: 1. The patient with acute pneumonia for the patient from aspiration is very likely for this patient with history of previous oropharyngeal dysphagia. 2. History of nonsmall cell cancer for this patient's right lower lobe and the laryngeal cancer. PLAN OF TREATMENT: No changes in the plan of therapy at this time. Continue antibiotics, bronchodilator. Chest x-ray, which was ordered. The patient will be assessed once available. SAHIL MANNING MD CM:PNTRANS [id number] SAHIL ANSARI MD 08/17/17 1628 interface
--- NOTE | ~2017-08-13 | PR ---
[place], [place] PROGRESS NOTE NAME: BENTLEY FAGAN UNIT #: [id number] ROOM: 531 DOCTOR: SAHIL ANGUIANO MD BIRTHDATE: [birth year] DOS: 08/21/2017 PULMONARY PROGRESS NOTE SUBJECTIVE: She was noted comfortable at this time without any acute distress, has not been noted any symptoms of chest pain, abdominal pain. Denies symptoms of nausea, vomiting. She has been comfortably resting at this time, sitting on her bed. OBJECTIVE: VITAL SIGNS: For the patient which has been recorded shows the temperature of the patient was noted as normal. The respiratory rate of the patient recorded as 16 to 20, heart rate of 73, blood pressure is 151/80 to 111/56. Pulse oxygen saturation 3 liters nasal cannula 93% saturation. HEENT: No acute change. NECK: Supple. CARDIOVASCULAR: S1, S2 audible. LUNGS: The patient was noted with moderate decreased breath sounds, no wheeze or crackles. ABDOMEN: Soft, nontender. EXTREMITIES: Without any acute edema. LABORATORY DATA: Prealbumin level noted at 13. The chest x-ray of the patient that was done this morning reviewed for this patient shows reduction of the pulmonary infiltration in the left lower lobe. The resolution noted incomplete with a small area of atelectasis, infiltration of right lower lobe was also noted. IMPRESSION: 1. The patient with acute ESBL producing species causing the acute pneumonia for this patient, hospital acquired. 2. The patient with history of advanced chronic obstructive pulmonary disease for the patient as well with acute exacerbation. PLAN OF MANAGEMENT: The patient was planned for transfer to the [facility] for continuation of the antibiotics. Tapering dose could be started. Other previous treatment of the patient to be continued as well. Usual care, other supportive plan of management and therapies. [place], [place] PROGRESS NOTE NAME: BENTLEY FAGAN UNIT #: [id number] ROOM: 531 DOCTOR: SAHIL ANGUIANO MD BIRTHDATE: [birth year] SAHIL MANNING MD CM:PNTRANS [phone] SAHIL ANSARI MD 08/22/17 0157 interface
[2017-08-13 16:28] VITALS: BP 114/59
[~2017-08-13 16:28] MED LIST changes: +SYMB160 INH; +Synthroid,Lev100 MCG PO; -Synthroid,Lev150 MCG PO
[2017-08-13 17:22] LABS: BASO % 0.1 % (0.0-1.0); HEMOGLOBIN 7.3 g/dl (12.0-16.0); LYMPH # 0.1 10*3/uL (1.3-4.4); LYMPH % 1.5 % (27.0-41.0); MEAN CORPUSCULAR HGB CONC 28.1 g/dl (33.0-37.0); MEAN PLATELET VOLUME 10.1 fl (9.6-12.3); MONO # 0.9 10*3/uL (0.1-1.0); MONO % 11.5 % (3.0-9.0); NEUT # 6.4 10*3/uL (2.3-7.9); NEUT % 86.4 % (47.0-73.0); PLATELET COUNT AUTOMATED 343 10*3/uL (130-400); RED BLOOD COUNT 3.17 10*6/uL (4.10-5.10); RED CELL DISTRI WIDTH 19.9 % (0-14.5); WHITE BLOOD COUNT 7.4 10*3/uL (4.8-10.8)
[2017-08-13 17:30] VITALS: BP 109/59
[2017-08-13 17:42] LABS: ALBUMIN 3.5 gm/dl (3.1-4.5); ALKALINE PHOSPHATASE 49 U/L (45-117); BUN 23 mg/dl (7-24); CHLORIDE 104 mmol/L (98-107); CREATININE 0.94 mg/dL (0.55-1.02); POTASSIUM 4.2 mmol/L (3.5-5.1); SGOT/AST 48 IU/L (3-35); SGPT/ALT 29 U/L (12-78); SODIUM 139 mmol/L (136-145); TOTAL PROTEIN 7.5 gm/dL (6.4-8.2)
[2017-08-13 17:45] LABS: BILIRUBIN NEGATIVE (NEGATIVE); BLOOD 3+ (NEGATIVE); CLARITY SL CLOUDY (CLEAR); COLOR YELLOW (YELLOW); GLUCOSE NEGATIVE (NEGATIVE); KETONE TRACE (NEGATIVE); LEUKO ESTERASE TRACE (NEGATIVE); NITRITE POSITIVE (NEGATIVE); PH 5.5 (5.0-9.0); SPECIFIC GRAVITY >= 1.030 (1.005-1.030); UROBILINOGEN 0.2 E.U./dl (0.2-1.0)
[2017-08-13 17:57] LABS: BACTERIA 3+; WBC 21-30 wbc/hpf (0-5)
[2017-08-13 18:20] VITALS: BP 116/52
[2017-08-13 20:10] VITALS: BP 119/60
[2017-08-13] MEDS ORDERED: COMBIVENT RESPIM4 GM INH (21:05)
[2017-08-13] MEDS ORDERED: MULTIPLE VITAM1 EACH PO (21:08)
[2017-08-14] VITALS (8 sets, daily range): BP systolic 100–129; BP diastolic 47–82
[2017-08-14 00:46] LABS: ABG BASE EXCESS -0.8 mmol/L (-2.0-2.0); ABG HCO3 25.4 mmol/l (22-26); ABG O2 SATURATION 98.2 % (95-97); ARTERIAL BLOOD GAS PCO2 56.2 mmHg (35-45); ARTERIAL BLOOD GAS PH 7.28 (7.35-7.45)
[2017-08-14 06:55] LABS: HEMATOCRIT 23.8 % (37.0-47.0); HEMOGLOBIN 6.6 g/dl (12.0-16.0); MEAN CELL VOLUME 83.5 fl (81.0-99.0); MEAN CORPUSCULAR HGB 23.2 pg (27.0-31.0); MEAN CORPUSCULAR HGB CONC 27.7 g/dl (33.0-37.0); PLATELET COUNT AUTOMATED 286 10*3/uL (130-400); RED BLOOD COUNT 2.85 10*6/uL (4.10-5.10); WHITE BLOOD COUNT 4.8 10*3/uL (4.8-10.8)
[2017-08-14 07:07] LABS: OVALOCYTES FEW; PLATELET SUFFICIENCY NORMAL (NORMAL); TOTAL CELLS COUNTED 100 #CELLS
[2017-08-14 07:08] LABS: POLYCHROMASIA SLIGHT
[2017-08-14 07:15] LABS: ALBUMIN 2.7 gm/dl (3.1-4.5); ALKALINE PHOSPHATASE 44 U/L (45-117); BUN 25 mg/dl (7-24); CHLORIDE 110 mmol/L (98-107); CREATININE 0.68 mg/dL (0.55-1.02); PHOSPHOROUS 2.9 mg/dL (2.5-4.9); POTASSIUM 4.1 mmol/L (3.5-5.1); SGOT/AST 83 IU/L (3-35); SGPT/ALT 31 U/L (12-78); SODIUM 143 mmol/L (136-145); TOTAL PROTEIN 5.9 gm/dL (6.4-8.2)
[2017-08-14 07:22] LABS: VITAMIN D, 25-HYDROXY 22.6 ng/mL (30-100)
[2017-08-14 07:31] LABS: ACT PARTIAL THROMBO TIME 25.4 SECONDS (20.8-31.5); INTERNATIONAL NORM RATIO 1.1 (2.0-3.5)
[2017-08-15] VITALS: BP 141/67
[2017-08-15 07:51] LABS: HEMATOCRIT 27.6 % (37.0-47.0); HEMOGLOBIN 7.9 g/dl (12.0-16.0); MEAN CELL VOLUME 84.7 fl (81.0-99.0); MEAN CORPUSCULAR HGB 24.2 pg (27.0-31.0); MEAN CORPUSCULAR HGB CONC 28.6 g/dl (33.0-37.0); MEAN PLATELET VOLUME 9.8 fl (9.6-12.3); PLATELET COUNT AUTOMATED 291 10*3/uL (130-400); RED BLOOD COUNT 3.26 10*6/uL (4.10-5.10); RED CELL DISTRI WIDTH 19.7 % (0-14.5)
[2017-08-15 08:00] VITALS: BP 156/65
[2017-08-15 08:46] LABS: MICROCYTOSIS SLIGHT; PLATELET SUFFICIENCY NORMAL (NORMAL); POLYCHROMASIA SLIGHT; TOTAL CELLS COUNTED 100 #CELLS
[2017-08-15 12:00] VITALS: BP 124/98
[2017-08-15 16:00] VITALS: BP 152/67
[2017-08-15 20:00] VITALS: BP 151/67
[2017-08-16] VITALS: BP 158/86
[2017-08-16 08:00] VITALS: BP 152/75
[2017-08-16 09:24] LABS: ALBUMIN 2.8 gm/dl (3.1-4.5); ALKALINE PHOSPHATASE 40 U/L (45-117); BUN 16 mg/dl (7-24); CREATININE 0.64 mg/dL (0.55-1.02); SGOT/AST 63 IU/L (3-35); SGPT/ALT 37 U/L (12-78); TOTAL PROTEIN 6.2 gm/dL (6.4-8.2)
[2017-08-16 09:26] LABS: HEMATOCRIT 30.2 % (37.0-47.0); HEMOGLOBIN 8.4 g/dl (12.0-16.0); MEAN CELL VOLUME 86.8 fl (81.0-99.0); MEAN CORPUSCULAR HGB 24.1 pg (27.0-31.0); MEAN CORPUSCULAR HGB CONC 27.8 g/dl (33.0-37.0); MEAN PLATELET VOLUME 10.1 fl (9.6-12.3); NUCLEATED RED BLOOD CELL 0.2 % (0.0-0.0); PLATELET COUNT AUTOMATED 290 10*3/uL (130-400); RED BLOOD COUNT 3.48 10*6/uL (4.10-5.10); RED CELL DISTRI WIDTH 20.2 % (0-14.5); WHITE BLOOD COUNT 9.3 10*3/uL (4.8-10.8)
[2017-08-16 09:50] LABS: CHLORIDE 111 mmol/L (98-107); POTASSIUM 4.3 mmol/L (3.5-5.1); SODIUM 144 mmol/L (136-145)
[2017-08-16 09:53] LABS: ACANTHOCYTES FEW; BURR CELLS FEW; OVALOCYTES FEW; PLATELET SUFFICIENCY NORMAL (NORMAL); POLYCHROMASIA SLIGHT; TOTAL CELLS COUNTED 100 #CELLS
[2017-08-16 12:00] VITALS: BP 167/73
[2017-08-16 16:00] VITALS: BP 143/69
[2017-08-16 20:00] VITALS: BP 141/62
[2017-08-17] VITALS: BP 160/82
[2017-08-17 08:00] VITALS: BP 159/70
[2017-08-17 12:00] VITALS: BP 143/63
[2017-08-17 16:00] VITALS: BP 144/68
[2017-08-17 20:00] VITALS: BP 140/66
[2017-08-18] VITALS (8 sets, daily range): BP systolic 111–164; BP diastolic 63–91
[2017-08-19] VITALS: BP 154/76
[2017-08-19 06:33] LABS: HEMATOCRIT 31.1 % (37.0-47.0); HEMOGLOBIN 8.5 g/dl (12.0-16.0); MEAN CELL VOLUME 87.6 fl (81.0-99.0); MEAN CORPUSCULAR HGB 23.9 pg (27.0-31.0); MEAN CORPUSCULAR HGB CONC 27.3 g/dl (33.0-37.0); MEAN PLATELET VOLUME 10.3 fl (9.6-12.3); PLATELET COUNT AUTOMATED 245 10*3/uL (130-400); RED BLOOD COUNT 3.55 10*6/uL (4.10-5.10); RED CELL DISTRI WIDTH 20.6 % (0-14.5); WHITE BLOOD COUNT 6.4 10*3/uL (4.8-10.8)
[2017-08-19 06:50] LABS: BUN 12 mg/dl (7-24); CHLORIDE 105 mmol/L (98-107); CREATININE 0.52 mg/dL (0.55-1.02); POTASSIUM 3.6 mmol/L (3.5-5.1); SODIUM 145 mmol/L (136-145)
[2017-08-19 07:18] LABS: TOTAL CELLS COUNTED 100 #CELLS
[2017-08-19 07:19] LABS: ACANTHOCYTES FEW; OVALOCYTES FEW; PLATELET SUFFICIENCY NORMAL (NORMAL); POLYCHROMASIA SLIGHT
[2017-08-19 08:00] VITALS: BP 154/76
[2017-08-19 12:00] VITALS: BP 137/74
[2017-08-19 16:00] VITALS: BP 159/72
[2017-08-19 19:04] LABS: ACID FAST SPEC PROCESSING Concentration (.)
[2017-08-19 20:27] VITALS: BP 164/74
[2017-08-20 00:17] VITALS: BP 148/74
[2017-08-20 08:00] VITALS: BP 132/73
[2017-08-20 12:00] VITALS: BP 141/72
[2017-08-20 16:00] VITALS: BP 133/78
[2017-08-20 20:00] VITALS: BP 141/65
[2017-08-21 00:16] VITALS: BP 111/56
[2017-08-21 08:00] VITALS: BP 151/82
[2017-08-21 12:00] VITALS: BP 147/65
[2017-08-21] MEDS ORDERED: KENALOG 0.1%80 GM T (13:19)
[2017-08-21] MEDS ORDERED: MERREM IV1 GM IV (13:19)
[2017-08-21] MEDS ORDERED: PREDNISONE10 MG PO (13:19)
[2017-08-21] MEDS ORDERED: MUCINEX ER600 MG PO (13:19)
[2017-08-21 16:00] VITALS: BP 147/76
== END 2017-08-21 16:40 | disposition home or self-care (01) | DRG 177 ==
LOC: ED 16:28 → EDHOLD 18:34 → 5E 18:34
PROVIDERS: Family Medicine; Internal Medicine; Internal Medicine Critical Care Medicine; Nurse Practitioner Family; Registered Nurse
PROC: 30233N1 Transfusion of Nonautologous Red Blood Cells into Peripheral Vein, Percutaneous Approach (ICD-10-PCS; principal; 2017-08-14)
PROC: BD1BYZZ Fluoroscopy of Mouth/Oropharynx using Other Contrast (ICD-10-PCS; 2017-08-16)
PROC: BD11YZZ Fluoroscopy of Esophagus using Other Contrast (ICD-10-PCS; 2017-08-16)
PROC: 0BC78ZZ Extirpation of Matter from Left Main Bronchus, Via Natural or Artificial Opening Endoscopic (ICD-10-PCS; 2017-08-18)
PROC: 0BC68ZZ Extirpation of Matter from Right Lower Lobe Bronchus, Via Natural or Artificial Opening Endoscopic (ICD-10-PCS; 2017-08-18)
PROC: 0BC58ZZ Extirpation of Matter from Right Middle Lobe Bronchus, Via Natural or Artificial Opening Endoscopic (ICD-10-PCS; 2017-08-18)
PROC: 0BC48ZZ Extirpation of Matter from Right Upper Lobe Bronchus, Via Natural or Artificial Opening Endoscopic (ICD-10-PCS; 2017-08-18)
PROC: 0BC18ZZ Extirpation of Matter from Trachea, Via Natural or Artificial Opening Endoscopic (ICD-10-PCS; 2017-08-18)
PROC: 0BC98ZZ Extirpation of Matter from Lingula Bronchus, Via Natural or Artificial Opening Endoscopic (ICD-10-PCS; 2017-08-18)
PROC: 0BCB8ZZ Extirpation of Matter from Left Lower Lobe Bronchus, Via Natural or Artificial Opening Endoscopic (ICD-10-PCS; 2017-08-18)
PROC: 0BC88ZZ Extirpation of Matter from Left Upper Lobe Bronchus, Via Natural or Artificial Opening Endoscopic (ICD-10-PCS; 2017-08-18)
PROC: 0BC38ZZ Extirpation of Matter from Right Main Bronchus, Via Natural or Artificial Opening Endoscopic (ICD-10-PCS; 2017-08-18)
DX: J69.0 Pneumonitis due to inhalation of food and vomit (principal); G93.41 Metabolic encephalopathy; J96.21 Acute and chronic respiratory failure with hypoxia; I95.9 Hypotension, unspecified; T17.590A Other foreign object in bronchus causing asphyxiation, initial encounter; E83.41 Hypermagnesemia; N30.01 Acute cystitis with hematuria; C32.9 Malignant neoplasm of larynx, unspecified; Z93.1 Gastrostomy status; Z99.81 Dependence on supplemental oxygen; J96.22 Acute and chronic respiratory failure with hypercapnia; J44.1 Chronic obstructive pulmonary disease with (acute) exacerbation; Z68.1 Body mass index [BMI] 19.9 or less, adult; E86.0 Dehydration; J10.1 Influenza due to other identified influenza virus with other respiratory manifestations; B88.8 Other specified infestations; W57.XXXA Bitten or stung by nonvenomous insect and other nonvenomous arthropods, initial encounter; E03.9 Hypothyroidism, unspecified; S59.901A Unspecified injury of right elbow, initial encounter; F41.9 Anxiety disorder, unspecified; R63.6 Underweight; D64.9 Anemia, unspecified; W01.0XXA Fall on same level from slipping, tripping and stumbling without subsequent striking against object, initial encounter; Y93.89 Activity, other specified; Y92.89 Other specified places as the place of occurrence of the external cause; Y99.8 Other external cause status; Z82.49 Family history of ischemic heart disease and other diseases of the circulatory system; Z79.899 Other long term (current) drug therapy; Z90.49 Acquired absence of other specified parts of digestive tract; Z87.891 Personal history of nicotine dependence; R74.0 Nonspecific elevation of levels of transaminase and lactic acid dehydrogenase [LDH]

== ENCOUNTER 2017-09-15 21:17 | Inpatient (IN) | payer MEDICARE, MEDICAID ==
[~2017-09-15] VITALS: Ht 167.6 cm; Wt 46.4 kg
--- NOTE | ~2017-09-15 | PROC NOTE ---
[place], [place] PROCEDURE NOTE NAME: BENTLEY FAGAN UNIT #: [id number] ROOM: 521 DOCTOR: NIGEL ANSARI MD,SAHIL BIRTHDATE: [birth year] DOS: 09/17/2017 BRONCHOSCOPY PREOPERATIVE DIAGNOSES: Acute pneumonia versus atelectasis, coughing and history of oropharyngeal dysphagia. POSTOPERATIVE DIAGNOSES: Acute pneumonia versus atelectasis, coughing and history of oropharyngeal dysphagia. PROCEDURE DESCRIPTION: Informed consent obtained from the patient's daughter. The patient was brought to the OR and placed in supine position. Conscious sedation was administered by the Anesthesia Department. After achieving proper sedation, airway was introduced into the mouth. Bronchoscope advanced to the airway into laryngeal area. Epiglottis and vocal cords were seen. Bronchoscope advanced to the vocal cord and tracheal lumen. Vocal cord noted with fixed movement. 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 The bronchoscope advanced to the vocal cord and tracheal lumen noted with moderate amount of bilious secretions in the lower portion of the trachea, which noted purulent present in the endobronchial tree, greater in the left and the right side. Secretions suctioned out clear. No endobronchial obstructive lesions were noted. Bronchial washing secretions sent for appropriate cultures. Procedure was tolerated by the patient without any complication. Postoperative findings were discussed with the patient's daughter in detail. SAHIL MANNING MD CM:PROCNOTE:PROCEDURE NOTE [id number] SAHIL ANSARI MD
--- NOTE | ~2017-09-15 | O ---
[place], [place] OPERATIVE NOTE NAME: BENTLEY FAGAN UNIT #: [id number] ROOM: 521 DOCTOR: LIBRA HUERTA MD BIRTHDATE: [birth year] DOS: 09/17/2017 HISTORY OF PRESENT ILLNESS: A 67-year-old patient who presented with chief complaint of failure to thrive and rectal bleed, pharyngeal carcinoma, status post radiation therapy and the patient has not been eating and having significant wasting. PAST MEDICAL HISTORY: COPD, anxiety, anorexia, anemia, rectal bleed, protein-calorie malnutrition. PAST SURGICAL HISTORY: Appendectomy, bronchoscopy, laryngoscopy, tonsillectomy, adenoidectomy and previous PEG. SOCIAL HISTORY: Smoker in the past. FAMILY HISTORY: Noncontributory. ALLERGIES: To no known medication. PROCEDURE: Today's procedure part of investigation is EGD, PEG tube placement. REPORT: After sedation with propofol, the scope was introduced. Thereafter, under direct visualization, advanced through the length of esophagus without difficulty into gastric pouch into duodenal bulb. No acute bleeding was noticed. Mild gastritis seen. Anterior abdominal wall, aseptically prepped with Betadine, 2 mL of Xylocaine was injected and subxiphoid leaning to left. A best transillumination sign was demonstrated in this area. Trocar was introduced into the same spot. Guidewire was advanced through the center of which was grasped with forceps, orally extracted and a gastrostomy tube Nauruan 20 was anchored to it after application of some Neosporin ointment to it. I have orally pulled, recovered from the surface of the abdomen, anchors placed, patency checked, tolerated procedure well. IMPRESSION: Percutaneous endoscopic gastrostomy for pharyngeal carcinoma, dysphagia, failure to thrive. PLAN AND DISCUSSION: Osmolite one can bolus feeding t.i.d. Pleasure food as she can tolerate. Furthermore, I am going to proceed with colonoscopy. The patient has presented with rectal bleed, undergoing investigation. PROCEDURE: Today's procedure part of investigation is colonoscopy plus biopsy. PREMEDICATION: Propofol. SCOPE: Olympus folding colonoscope 10L video. REPORT: After putting the patient in left lateral position and application of lubricant to the rectal pouch, the scope was introduced. Thereafter, under direct visualization, advanced through the length of colon to cecum. A [facility] OPERATIVE NOTE NAME: BENTLEY FAGAN UNIT #: [id number] ROOM: 521 DOCTOR: DEANNA MARTINS,LIBRA BIRTHDATE: [birth year] base polypoid lesion infiltrated was noticed. Photographic series of which was obtained. Base of which was biopsied. Scope was gradually withdrawn through a tortuous colon into the rectum, small hemorrhoids noticed. Air was suctioned out. The patient was extubated, tolerated the procedure well. IMPRESSION Cecal polyp, status post biopsy with this polypoid lesion is infiltrated and if the biopsies come with dysplasia, then we have to perhaps consider a segmental resection or wedge resection, but bearing in mind that the patient has laryngeal carcinoma and multiple other issues, she may not over survive the dysplasia of the polyp at the same time. As far as the rectum is concerned, a small hemorrhoid, Anucort-HC suppository 1 at bedtime would be given for the next 3 nights and p.r.n. otherwise. LIBRA HUERTA MD CM:OPRECORD:OPERATIVE NOTE [id number] LIBRA HUERTA MD 09/21/17 1000 interface
--- NOTE | ~2017-09-15 | EKG ---
[place], [place] ELECTROCARDIOGRAM REPORT NAME: BENTLEY FAGAN UNIT #: [id number] ROOM: 521 DOCTOR: NIGEL ANSARI MD,SAHIL BIRTHDATE: [birth year] DOS: 09/16/2017 ELECTROCARDIOGRAM TIME: At 2214 hours. Electrocardiogram showed normal sinus rhythm. Heart rate of 66 beats per minute. Voltage criteria for the patient for the LVH to be considered. SAHIL MANNING MD CM:EKGRPT:ELECTROCARDIOGRAM REPORT [id number] SAHIL ANSARI MD
--- NOTE | ~2017-09-15 | PR ---
[place], [place] PROGRESS NOTE NAME: BENTLEY FAGAN UNIT #: [id number] ROOM: 521 DOCTOR: NIGEL ANSARI MD,SAHIL BIRTHDATE: [birth year] DOS: 09/18/2017 SUBJECTIVE: She has been noted comfortable at this time with reduction in chest congestion and coughing, but noted this morning eating the food as well. The patient has been assessed by Dr. Mcclain and a PEG tube inserted as well for the additional nutrition support. Modified diet was continued. She has not been noted symptoms of chest pain or any abdominal pain. OBJECTIVE: VITAL SIGNS: For the patient recorded normal temperature, respiratory rate 18, heart rate 66, blood pressure 151/82. Pulse oxygen on room air 96% saturation. HEENT: Head was atraumatic. Eyes nonicterus. NECK: Supple. CARDIOVASCULAR: S1, S2 audible. LUNGS: The patient was noted without any wheezing or crackles. ABDOMEN: Soft, nontender. EXTREMITIES: Without acute edema. Chronic loss of muscle mass. LABORATORY DATA: Gram stain bronchial washings yesterday, many white blood cell, few epithelial cell, few budding yeast, moderate growth of yeast. Preliminary finding culture results were pending. IMPRESSION: 1. The patient with the protein calorie malnutrition with oropharyngeal dysphagia as well. 2. History of cancer of the larynx. The patient treated noted in remission as a lung cancer in the right lower lobe. SAHIL MANNING MD CM:PNTRANS [phone] SAHIL ANSARI MD 09/18/17 1725 interface
--- NOTE | ~2017-09-15 | PR ---
[place], [place] PROGRESS NOTE [id number] UN[facility] #: [id number] ROOM: 521 DOCTOR: SAHIL ANGUIANO MD BIRTHDATE: [birth year] DOS: 09/17/2017 PULMONARY FOLLOWUP NOTE SUBJECTIVE: The patient was seen and examined on 09/17/2017. She has been n.p.o. past midnight. She was also made n.p.o. yesterday with the suspicion of possibly to aspiration by the primary care attending. She has not been noted in any respiratory distress. Denies abdominal pain. Denies symptoms of nausea, vomiting at the present time, general weakness was noted. History was noted limited because of the patient's history of dementia. The daughter was also seen at the bedside with the patient. REVIEW OF SYSTEMS: Cannot be accurately determined. PHYSICAL EXAMINATION: VITAL SIGNS: Showed normal temperature, respiratory rate 20, heart rate 72. The blood pressure 123/82. Pulse oxygen saturation on room air was 94% saturation. HEENT: Head was atraumatic. Eyes nonicterus. NECK: Supple. CARDIOVASCULAR: S1, S2 is audible. LUNGS: The patient was noted without any wheeze or crackles in the upper lungs. Decreased breath sounds noted in lower portion of lungs bilaterally, scattered crackles. ABDOMEN: Soft, flat, nontender. EXTREMITIES: Without any acute edema. MUSCULOSKELETAL: Without any acute deformities. CENTRAL NERVOUS SYSTEM: Cranial nerves 2-12 intact. LABORATORY DATA: BMP that was done this morning shows normal BMP. Prealbumin was noted at 13, which was decreased. CBC that was done this morning, normal WBC count, hemoglobin 7.9, hematocrit 26.9, platelet count normal. The platelet function assay was noted as normal. Occult blood fecal was noted positive. IMPRESSION: 1. The patient has been currently noted with anemia, most likely secondary to gastrointestinal bleeding. 2. Acute pneumonia versus atelectasis, combination of both, for bronchoscopy. 3. Oropharyngeal dysphagia. 4. Moderate protein-calorie malnutrition. 5. Past history of treated cancer of the larynx and the lungs, so far has not been noted with any recurrence. PLAN OF MANAGEMENT: Proceed with bronchoscopy as previously. Bronchodilators and antibiotics. Changes in antibiotic based on the culture results will be done. PEG tube insertion was suggested by the primary care attending and the patient will be assessed by Dr. Mcclain for that. Follow his recommendations. [place], [place] PROGRESS NOTE NAME: BENTLEY FAGAN UNIT #: [id number] ROOM: 521 DOCTOR: SAHIL ANGUIANO MD BIRTHDATE: [birth year] SAHIL MANNING MD CM:PNTRANS [id number] SAHIL ANSARI MD 09/30/17 0815 interface
--- NOTE | ~2017-09-15 | PR ---
[place], [place] PROGRESS NOTE NAME: BENTLEY FAGAN UNIT #: [id number] ROOM: 521 DOCTOR: NIGEL ANSARI MD,SAHIL BIRTHDATE: [birth year] DOS: 09/19/2017 SUBJECTIVE: She has been noted comfortable at this time, resting on the bed. Denies symptoms of chest pain or any abdominal pain. Denies symptoms of hemoptysis. She has been getting feeding with the PEG tube as well as oral. REVIEW OF SYSTEMS: The patient's review of systems could not be performed because of the patient with history of dementia. OBJECTIVE: VITAL SIGNS: For the patient which has been recorded showed normal temperature, respiratory rate 16, heart rate 70, blood pressure 174/64-137/50. The pulse oxygen saturation on room air 95% saturation. HEENT: Examination shows head was atraumatic. Eyes nonicterus. NECK: Supple. CARDIOVASCULAR: S1, S2 is audible. LUNGS: Noted decreased breath, lower portion of the lungs bilaterally. ABDOMEN: Soft, nontender. Bowel sounds present. EXTREMITIES: The patient was noted without any acute edema. MUSCULOSKELETAL: Noted without any acute deformities. CENTRAL NERVOUS SYSTEM: Noted without any acute deformities. LABORATORY DATA: The patient's chest x-ray done this morning was noted with right lung appeared to be clear. Small infiltration noted at this time and pleural fluid with improving aeration as compared to previous chest x-ray examination. CBC today: WBC count 11, hemoglobin 8.0, hematocrit 27.8, platelet count was 302,000. The cultures of the bronchial washing noted moderate growth of yeast. IMPRESSION: 1. Resolving acute pneumonia progressively at this time. 2. The patient with oropharyngeal dysphagia as well. 3. 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 4. The patient with protein-calorie malnutrition as well. PLAN OF THERAPY: The patient will be continued on current therapy, plan of management at this time with bronchodilators, oxygen supplementation, except the antibiotic adjustment done for this patient with discontinuation of the vancomycin and Zosyn and continue the Levaquin is the only antibiotic. Continue optimizing nutritional status. Other supportive therapy, plan of management and care plan. Additional treatment changes to be done based on progression of the illness. Monitoring of the chest x-ray will be continued. [place], [place] PROGRESS NOTE NAME: BENTLEY FAGAN UNIT #: [id number] ROOM: 521 DOCTOR: SAHIL ANGUIANO MD BIRTHDATE: [birth year] SAHIL MANNING MD CM:GRAHAM [phone] SAHIL ANSARI MD 09/20/17 0157 interface
--- NOTE | ~2017-09-15 | PR ---
[place], [place] PROGRESS NOTE NAME: BENTLEY FAGAN UNIT #: [id number] ROOM: 521 DOCTOR: NIGEL ANSARI MD,SAHIL BIRTHDATE: [birth year] DOS: 09/20/2017 SUBJECTIVE: The patient was noted comfortable at this time, resting on the bed. She has been continuing modified diet taken as well as nutrition support through the PEG tube as well. The patient has not been noted any symptoms of chest pain or any abdominal pain. There were no symptoms of nausea or vomiting. OBJECTIVE: VITAL SIGNS: For the patient, which were recorded, normal temperature, respirations 16, heart rate 76, blood pressure 158/90. Pulse ox saturation, 93% saturation noted on room air. HEENT: Examination shows head was atraumatic. Eyes nonicterus. NECK: Supple. CARDIOVASCULAR: S1, S2 audible. LUNGS: Noted moderate decreased breath sounds in the lungs bilaterally. There were no wheezes or crackles. IMPRESSION: 1. Resolving acute pneumonia, currently with antibiotics. 2. Oropharyngeal dysphagia as well. 3. Overall debility with protein calorie malnutrition. 4. History of cancer of the larynx and the lungs, laryngeal cancer. PLAN OF MANAGEMENT. No changes in the plan of therapy at this time. SAHIL MANNING MD CM:PNTRANS [id number] SAHIL ANSARI MD 09/21/17 0023 interface
--- NOTE | ~2017-09-15 | CON ---
[place], [place] REPORT OF CONSULTATION NAME: BENTLEY FAGAN UNIT #: [id number] ROOM: 521 DOCTOR: SAHIL ANGUIANO MD BIRTHDATE: [birth year] DOS: 09/16/2017 PULMONARY CONSULTATION, EVALUATION, AND MANAGEMENT CONSULTATION REQUESTED BY: Hospitalist. REASON FOR CONSULTATION: For assessment of the left lower lobe pneumonia. HISTORY OF PRESENT ILLNESS: This is a 67-year-old female patient, who has been admitted to the hospital on 09/16/2017, as the patient came into the emergency early this morning. The patient has been brought to the hospital. She has been noted with coughing with increased sputum expectoration. The symptoms has been noted to worsen. The patient did fell down as per daughter at home as she was trying to cook her food. The patient has been noted with abnormal foul smelling urine as well reported. The history could not be obtained from the patient because of difficulty of communication and understanding, which has been known previously. All the history obtained at this document is my review of the past consultation records from previous hospitalizations known from the office or the current documentation by the other physicians as well as the nurse's notes. The patient was seen in the primary care physician's office yesterday with pulse oxygen saturation noted in the low 70s. The patient was given breathing treatments. She was thus sent to the Emergency Room for further assessment. The patient has been currently admitted to the hospital. The chest x-ray done reported the finding of acute pneumonia. She has a CT scan of the head done in the Emergency Room as well. REVIEW OF SYSTEMS: Could not be completed effectively due to the patient's difficulty of current communication. PAST MEDICAL HISTORY: Recent hospitalization, the patient was managed during this hospitalization in 07/2017 for the acute left lower lobe pneumonia. Organisms identified at that time was E. coli, which are noted ESBL, treated with the antibiotics. Past medical history, surgical history, social history, and family history are reviewed from my consultation records of 08/17/2017 and remains unchanged. Please refer to that document for any details, [facility] CURRENT MEDICATIONS: Administered on this admission were noted use of Solu-Medrol, levothyroxine, Lovenox, DuoNeb, zinc oxide, vancomycin, Levaquin, and IV Zosyn. DRUG ALLERGIES: Noted no known drug allergies. PHYSICAL EXAMINATION: GENERAL: This is a 67-year-old female who has been currently noted to be awake and alert without any acute distress, eating her breakfast this morning. She does not have signs of acute respiratory distress. Height were recorded on admission as height of 5 feet 6 inches, weight 102 pounds, BMI 16.5. [place], [place] REPORT OF CONSULTATION NAME: BENTLEY FAGAN UNIT #: [id number] ROOM: 521 DOCTOR: NIGEL ANSARI MD,[facility] BIRTHDATE: [birth year] VITAL SIGNS: Shows a normal temperature, respiratory rate 15, heart rate of 18, blood pressure of 135/60-125/58. The temperature was normal. Pulse oxygen saturation on room air was recorded as this morning 94. Previously on 3 liters 94% saturation. HEENT: Head was atraumatic. Eyes, nonicterus. NECK: Supple. CARDIOVASCULAR: S1, S2 is audible. LUNGS: The patient was noted without any wheezing or crackles. Breaths are noted generally diminished bilaterally. ABDOMEN: Flat, soft, nontender. Bowel sounds present. EXTREMITIES: The patient was noted without any acute edema. MUSCULOSKELETAL: Chronic loss of muscle mass. There were no deformities. CENTRAL NERVOUS SYSTEM: No gross focal neurologic deficit, but limited exam. LABORATORY DATA: CBC yesterday in the Emergency Room, WBC count normal hemoglobin 8.8, hematocrit 29.9, platelet count 179,000. PT/PTT were noted normal yesterday. CT scan of the head was completed in the Emergency Room yesterday were noted without any acute intracranial abnormalities. Age-related involutional changes were noticed, small vessel ischemic changes. Urine culture, no bacterial growth noted from the , which was done previously, ordered by the primary care attending. CBC this morning, hemoglobin 8, WBC normal, platelet count normal. CMP: BUN normal, creatinine was 0.63. Review of the chest x-ray one-view from the Emergency Room, essentially shows similar finding and noted previous chest x-ray, comparison 08/21/2017. Possibility of area of scarring and/or persistent infiltration in the left lower lobe cannot be completely excluded. IMPRESSION: 1. The patient will be admitted to the hospital noted with acute exacerbation of chronic obstructive pulmonary disease, questionable pneumonia at this time would be considered. 2. The patient with a history of cancer of the lung and the larynx, which is already being treated. 3. The patient with dementia would be considered current mental status changes, which has been noted chronic as well as the CT scan findings. PLAN OF MANAGEMENT: CT scan of the chest will be obtained for further assessment of resolution of the problem or progression. Bronchoscopy will be suggested to reassess need of any further antibiotic usage. Otherwise, the antibiotic need to be discontinued. Agree with use of the corticosteroid dose, which has been done for this patient. Other supportive therapy, plan of management will be continued. Additional medication changes would be made based on progression of the illness. Usual care, other supportive plan of management, and treatment. Obtain the prealbumin level for the assessment of the nutritional status. Thanks for allowing me to participate in care of this patient. [place], [place] REPORT OF CONSULTATION NAME: BENTLEY FAGAN UNIT #: [id number] ROOM: 521 DOCTOR: SAHIL ANGUIANO MD BIRTHDATE: [birth year] SAHIL MANNING MD CM:CONSTR:REPORT OF CONSULTATION 1429 09/16/17 5923 interface
[~2017-09-15 21:17] MED LIST changes: +COMBIVENT RESPIM4 GM INH; +KENALOG 0.1%80 GM T; +MERREM IV1 GM IV; +MULTIPLE VITAM1 EACH PO
[2017-09-15 21:23] VITALS: BP 136/56
[2017-09-15 21:58] LABS: BILIRUBIN NEGATIVE (NEGATIVE); BLOOD NEGATIVE (NEGATIVE); CLARITY SL CLOUDY (CLEAR); COLOR YELLOW (YELLOW); GLUCOSE NEGATIVE (NEGATIVE); KETONE NEGATIVE (NEGATIVE); LEUKO ESTERASE NEGATIVE (NEGATIVE); NITRITE NEGATIVE (NEGATIVE); SPECIFIC GRAVITY 1.015 (1.005-1.030); UROBILINOGEN 0.2 E.U./dl (0.2-1.0)
[2017-09-15 22:04] LABS: BACTERIA TRACE; MUCOUS 1+
[2017-09-15 22:05] LABS: EPITHELIAL CELLS 0-2
[2017-09-15 22:24] LABS: BASO % 0.3 % (0.0-1.0); EOS # 0.1 10*3/uL (0.0-0.4); EOS % 0.9 % (1.0-4.0); HEMATOCRIT 29.9 % (37.0-47.0); HEMOGLOBIN 8.8 g/dl (12.0-16.0); LYMPH # 0.4 10*3/uL (1.3-4.4); LYMPH % 5.2 % (27.0-41.0); MEAN CELL VOLUME 86.7 fl (81.0-99.0); MEAN CORPUSCULAR HGB 25.5 pg (27.0-31.0); MEAN CORPUSCULAR HGB CONC 29.4 g/dl (33.0-37.0); MEAN PLATELET VOLUME 9.9 fl (9.6-12.3); MONO # 0.7 10*3/uL (0.1-1.0); MONO % 8.4 % (3.0-9.0); NEUT # 6.6 10*3/uL (2.3-7.9); NEUT % 84.7 % (47.0-73.0); PLATELET COUNT AUTOMATED 279 10*3/uL (130-400); RED BLOOD COUNT 3.45 10*6/uL (4.10-5.10); WHITE BLOOD COUNT 7.8 10*3/uL (4.8-10.8)
[2017-09-15 22:30] VITALS: BP 135/55
[2017-09-15 22:32] LABS: ACT PARTIAL THROMBO TIME 24.8 SECONDS (20.8-31.5)
[2017-09-15 22:40] LABS: ALBUMIN 2.7 gm/dl (3.1-4.5); ALKALINE PHOSPHATASE 50 U/L (45-117); CHLORIDE 106 mmol/L (98-107); CREATININE 0.69 mg/dL (0.55-1.02); LIPASE 142 U/L (73-393); POTASSIUM 3.8 mmol/L (3.5-5.1); SGOT/AST 22 IU/L (3-35); SGPT/ALT 21 U/L (12-78); SODIUM 142 mmol/L (136-145); TOTAL PROTEIN 6.1 gm/dL (6.4-8.2)
[2017-09-15 22:48] LABS: BUN 25 mg/dl (7-24); TROPONIN I < 0.015 ng/ml (<0.045)
[2017-09-15 23:30] VITALS: BP 132/60
[2017-09-16 00:30] VITALS: BP 135/60
[2017-09-16 01:40] VITALS: BP 130/55
[2017-09-16 07:09] LABS: BASO % 0.4 % (0.0-1.0); EOS # 0.1 10*3/uL (0.0-0.4); EOS % 2.4 % (1.0-4.0); HEMATOCRIT 27.5 % (37.0-47.0); LYMPH # 0.4 10*3/uL (1.3-4.4); LYMPH % 6.5 % (27.0-41.0); MEAN CORPUSCULAR HGB 25.3 pg (27.0-31.0); MEAN CORPUSCULAR HGB CONC 29.1 g/dl (33.0-37.0); MEAN PLATELET VOLUME 10.3 fl (9.6-12.3); MONO # 0.7 10*3/uL (0.1-1.0); MONO % 12.1 % (3.0-9.0); NEUT # 4.3 10*3/uL (2.3-7.9); NEUT % 78.1 % (47.0-73.0); PLATELET COUNT AUTOMATED 256 10*3/uL (130-400); RED BLOOD COUNT 3.16 10*6/uL (4.10-5.10); RED CELL DISTRI WIDTH 20.1 % (0-14.5); WHITE BLOOD COUNT 5.5 10*3/uL (4.8-10.8)
[2017-09-16 07:29] LABS: ALBUMIN 2.3 gm/dl (3.1-4.5); BUN 20 mg/dl (7-24); CHLORIDE 106 mmol/L (98-107); CREATININE 0.63 mg/dL (0.55-1.02); PHOSPHOROUS 2.8 mg/dL (2.5-4.9); POTASSIUM 3.8 mmol/L (3.5-5.1); SGOT/AST 21 IU/L (3-35); SGPT/ALT 18 U/L (12-78); SODIUM 142 mmol/L (136-145)
[2017-09-16 07:31] LABS: ALKALINE PHOSPHATASE 44 U/L (45-117); TOTAL PROTEIN 5.4 gm/dL (6.4-8.2)
[2017-09-16 08:00] VITALS: BP 125/58
[2017-09-16 12:00] VITALS: BP 125/88
[2017-09-16 16:00] VITALS: BP 130/73
[2017-09-16 20:00] VITALS: BP 151/73
[2017-09-17] VITALS (13 sets, daily range): BP systolic 121–158; BP diastolic 45–82
[2017-09-17 05:58] LABS: BASO % 0.2 % (0.0-1.0); HEMATOCRIT 26.9 % (37.0-47.0); HEMOGLOBIN 7.9 g/dl (12.0-16.0); LYMPH # 0.4 10*3/uL (1.3-4.4); LYMPH % 3.8 % (27.0-41.0); MEAN CELL VOLUME 87.6 fl (81.0-99.0); MEAN CORPUSCULAR HGB 25.7 pg (27.0-31.0); MEAN CORPUSCULAR HGB CONC 29.4 g/dl (33.0-37.0); MEAN PLATELET VOLUME 10.3 fl (9.6-12.3); MONO # 0.5 10*3/uL (0.1-1.0); MONO % 5.1 % (3.0-9.0); NEUT # 8.4 10*3/uL (2.3-7.9); NEUT % 89.6 % (47.0-73.0); PLATELET COUNT AUTOMATED 276 10*3/uL (130-400); RED BLOOD COUNT 3.07 10*6/uL (4.10-5.10); RED CELL DISTRI WIDTH 20.5 % (0-14.5); WHITE BLOOD COUNT 9.3 10*3/uL (4.8-10.8)
[2017-09-17 06:05] LABS: BUN 13 mg/dl (7-24); CHLORIDE 110 mmol/L (98-107); POTASSIUM 4.1 mmol/L (3.5-5.1); SODIUM 144 mmol/L (136-145)
[2017-09-17 06:09] LABS: PREALBUMIN 13 mg/dl (20-40)
[2017-09-18] VITALS: BP 131/72
[2017-09-18 08:00] VITALS: BP 141/67
[2017-09-18 12:00] VITALS: BP 151/82
[2017-09-18 13:06] LABS: ACID FAST SPEC PROCESSING Concentration (.)
[2017-09-18 16:00] VITALS: BP 135/62
[2017-09-18 20:00] VITALS: BP 138/74
[2017-09-19] VITALS: BP 157/77
[2017-09-19 07:42] LABS: BASO % 0.2 % (0.0-1.0); EOS % 0.1 % (1.0-4.0); HEMATOCRIT 27.8 % (37.0-47.0); LYMPH # 0.5 10*3/uL (1.3-4.4); LYMPH % 4.8 % (27.0-41.0); MEAN CELL VOLUME 89.4 fl (81.0-99.0); MEAN CORPUSCULAR HGB 25.7 pg (27.0-31.0); MEAN CORPUSCULAR HGB CONC 28.8 g/dl (33.0-37.0); MEAN PLATELET VOLUME 9.7 fl (9.6-12.3); MONO % 8.8 % (3.0-9.0); NEUT # 9.3 10*3/uL (2.3-7.9); NEUT % 84.2 % (47.0-73.0); PLATELET COUNT AUTOMATED 302 10*3/uL (130-400); RED BLOOD COUNT 3.11 10*6/uL (4.10-5.10)
[2017-09-19 08:00] VITALS: BP 137/50
[2017-09-19 08:04] LABS: BUN 11 mg/dl (7-24); CREATININE 0.71 mg/dL (0.55-1.02)
[2017-09-19 12:00] VITALS: BP 174/64
[2017-09-19 16:00] VITALS: BP 148/80
[2017-09-19 20:00] VITALS: BP 153/70
[2017-09-20] VITALS: BP 140/71
[2017-09-20 08:00] VITALS: BP 158/90
[2017-09-20] MEDS ORDERED: SYNTHROID,LEV125 MCG PO (11:36)
[2017-09-20] MEDS ORDERED: PREDNISONE10 MG PO (11:36)
[2017-09-20] MEDS ORDERED: ZINC OXIDE OINT1 OZ T (11:36)
[2017-09-20] MEDS ORDERED: PROTONIX40 M2 NG (11:36)
[2017-09-20] MEDS ORDERED: OXYGEN NAS (11:38)
[2017-09-20] MEDS ORDERED: LEVAQUIN750 M1 PO (11:38)
[2017-09-20 12:00] VITALS: BP 149/79
[2017-10-28 10:03] LABS: ACID FAST CULTURE Negative (.)
== END 2017-09-20 13:38 | disposition other institution (70) | DRG 177 ==
LOC: ED 21:17 → EDHOLD 09-16 00:14 → 5E 09-16 00:14
PROVIDERS: Family Medicine; Internal Medicine; Internal Medicine Critical Care Medicine; Physician Assistant
PROC: 0BCB8ZZ Extirpation of Matter from Left Lower Lobe Bronchus, Via Natural or Artificial Opening Endoscopic (ICD-10-PCS; principal; 2017-09-17)
PROC: 0DBH8ZX Excision of Cecum, Via Natural or Artificial Opening Endoscopic, Diagnostic (ICD-10-PCS; principal; 2017-09-17)
PROC: 0BC68ZZ Extirpation of Matter from Right Lower Lobe Bronchus, Via Natural or Artificial Opening Endoscopic (ICD-10-PCS; principal; 2017-09-17)
PROC: 0DH63UZ Insertion of Feeding Device into Stomach, Percutaneous Approach (ICD-10-PCS; principal; 2017-09-17)
PROC: 0BC18ZZ Extirpation of Matter from Trachea, Via Natural or Artificial Opening Endoscopic (ICD-10-PCS; principal; 2017-09-17)
DX: J15.6 Pneumonia due to other Gram-negative bacteria (principal); E43 Unspecified severe protein-calorie malnutrition; J96.21 Acute and chronic respiratory failure with hypoxia; K29.71 Gastritis, unspecified, with bleeding; T17.490A Other foreign object in trachea causing asphyxiation, initial encounter; T17.590A Other foreign object in bronchus causing asphyxiation, initial encounter; R13.12 Dysphagia, oropharyngeal phase; J44.0 Chronic obstructive pulmonary disease with (acute) lower respiratory infection; J44.1 Chronic obstructive pulmonary disease with (acute) exacerbation; Z68.1 Body mass index [BMI] 19.9 or less, adult; J15.9 Unspecified bacterial pneumonia; L89.91 Pressure ulcer of unspecified site, stage 1; Z99.81 Dependence on supplemental oxygen; D72.810 Lymphocytopenia; R62.7 Adult failure to thrive; K64.9 Unspecified hemorrhoids; D12.0 Benign neoplasm of cecum; E03.9 Hypothyroidism, unspecified; R00.1 Bradycardia, unspecified; D64.9 Anemia, unspecified; R29.6 Repeated falls; F41.9 Anxiety disorder, unspecified; X58.XXXA Exposure to other specified factors, initial encounter; Y93.89 Activity, other specified; Y92.89 Other specified places as the place of occurrence of the external cause; Y99.8 Other external cause status; Z87.891 Personal history of nicotine dependence; Z90.49 Acquired absence of other specified parts of digestive tract; Z87.01 Personal history of pneumonia (recurrent); Z82.49 Family history of ischemic heart disease and other diseases of the circulatory system; Z87.440 Personal history of urinary (tract) infections; Z79.899 Other long term (current) drug therapy; Z85.21 Personal history of malignant neoplasm of larynx; J69.0 Pneumonitis due to inhalation of food and vomit

== ENCOUNTER → 2017-10-13 | Outpatient (CLI) | payer MEDICARE, MEDICAID ==
[~2017-10-13] MED LIST changes: +Ipratropium Brom3 ML NEB; +PROTONIX40 M2 NG; +VITAMIN D5000 UNI1 PO; +ZINC OXIDE OINT1 OZ T; +[UNRECOGNIZED DRUG - OTHER] PEG
--- NOTE | ~2017-10-13 | SLPPN ---
[place], [place] PROJECT CONTROL OFFICER PROGRESS NOTE NAME: BENTLEY FAGAN UNIT #: [id number] ROOM: DOCTOR: ALIYA CERRATO MD,ISIDRO Speech Language Pathology Treatment Note Page 1 1 of Patient Name: BENTLEY FAGAN Date: 10/13/2017 11:14 AM : 1950 SOC Date: 10/13/2017 Provider: [facility] Provider #: [id number] Treating Clinician: RADHA Foster Referring Physician: ISIDRO CERRATO Onset Date Description Code Primary Diagnosis: 09/14/2016 A000.00 Time In: 10:00 AM Time Out: 11:00 AM PROJECT CONTROL OFFICER Interventions and CPT Codes Consisted of: CPT Code Modifiers Minutes Units MOTION FLUOROSCOPY/SWALLOW 44172 60 1 Total Minutes: 60 Total Timed Minutes: 0 Total Untimed Minutes: 60 Total Units: 1 Total Timed Units: 0 Total Untimed Units: 1 10/13/2017 11:14:48 AM RADHA Foster Date/Time State License #: [id number] CM:RICARDO [id number] [facility]
--- NOTE | ~2017-10-13 | PROC NOTE ---
[place], [place] PROCEDURE NOTE NAME: BENTLEY FAGAN [id number] UNIT #: [id number] ROOM: DOCTOR: GEE GUPTA BIRTHDATE: [birth year] DOS: 10/13/2017 MODIFIED BARIUM SWALLOW ORDERING PHYSICIAN: Dr. Solis. RADIOLOGIST: Dr. Rodríguez. BACKGROUND INFORMATION: The patient is a 67-year-old female who was seen for modified barium swallow. This test was ordered to determine progress and most appropriate diet consistency. This patient currently receives a soft diet with chopped meats and nectar thick liquids. She also has a PEG tube placed, which is used for feeding as well depending on her oral intake. This patient is known to this department through prior therapy services. She has had multiple past instrumental swallowing studies, the most recent occurring 09/15/2017 which revealed poor mastication, pooling in the pharynx and recommendation for a soft diet and thin liquids. The patient is known to be noncompliant with a modified diet and is insistent on regular foods and thin liquids, though choking with liquids occurs as well as difficulty chewing and eventual consuming of food. MEDICAL HISTORY: Significant for acute and chronic respiratory failure, laryngeal cancer, dysphagia, and COPD. For today's assessment, she was alert and able to follow commands. Hoarse dysphonic voice was displayed. Congested respirations were also displayed. Oral peripheral examination revealed edentulous status. Lingual, labial, and buccal skills were within normal limits in terms of strength, range of motion, and coordination. The patient was able to volitionally swallow. Her volitional cough was weak. METHODS AND MATERIALS USED FOR THE EXAM: The patient was positioned in the lateral plane and the exam was viewed under fluoroscopy. The patient was presented with a variety of consistencies to assess swallowing skills including applesauce mixed with barium presented in half teaspoon amounts, barium-coated banana presented in bite size piece and nectar thick barium taken by cup with head neutral and in chin tuck position. ORAL PHASE: The patient achieved adequate labial seal around cup and spoon with no anterior loss. Bolus formation was adequate. Mastication of soft solid was slow, but functional. Oral transit was mildly impaired with puree and mild to moderate with soft solid. Adequate tongue to palate contact was observed. Tongue to posterior pharyngeal wall contact was mild to moderately impaired. Velar functioning was within normal limits with no nasal regurgitation. PHARYNGEAL SWALLOW: The pharyngeal swallow occurred within a timely manner. Laryngeal elevation and epiglottic function were reduced. Pooling in the vallecula occurred with solid and puree consistencies. The patient did appear aware of this as she attempted to re-swallow to clear it. This was somewhat effective as was liquid wash. When the patient took a thick liquid with head neutral and in a slightly large sip size amount, silent aspiration did occur. The patient was cued to use chin tuck maneuver and take a small sip and when doing so, no penetration or aspiration occurred. [place], [place] PROCEDURE NOTE NAME: BENTLEY FAGAN UNIT #: [id number] ROOM: DOCTOR: GEE GUPTA BIRTHDATE: [birth year] ESOPHAGEAL PHASE: This phase of the swallow was not formally assessed during this exam. IMPRESSIONS AND RECOMMENDATIONS: Based upon assessment results, this 67-year-old patient displayed a [id number] oropharyngeal dysphagia characterized by impairments in oral transit, tongue base retraction, laryngeal elevation and epiglottic function. Pooling in the vallecula did occur due to reduced tongue base retraction. Her residue mostly cleared with the use of strategies. Silent aspiration occurred with nectar thick liquid due to reduced laryngeal elevation and epiglottic function. She was able to eliminate aspiration during this study with use of chin tuck and small sips. It is recommended that she remain on current diet of soft foods with chopped meats and nectar thick liquids. Recommend use of strategies such as upright positioning for meals, small bites and sips, alternating liquid and solid and chin tuck with liquids. The patient has been undergoing therapy at the senior living, focusing on strengthening exercises to improve safety of swallow and it is recommended that this continue. Results and recommendations were shared with the patient and her daughter and a written copy was given for education of senior living staff. Thank you very much for this referral. Should you have any questions regarding this patient, please contact the speech pathologist at [phone]. GEE GUPTA CM:PROCNOTE:PROCEDURE NOTE [id number] GEE GUPTA
--- NOTE | ~2017-10-13 | SLPPOC ---
[place], [place] COUNSELOR SUPERVISOR PLAN OF CARE NAME: BENTLEY FAGAN UNIT #: [id number] ROOM: DOCTOR: ISIDRO IRIZARRY FACP, MD Speech Language Pathology Plan of Care Page 1 1 (Initial Evaluation) of Patient Name: BENTLEY FAGAN Date: 10/13/2017 11:13 AM : 1950 SOC Date: 10/13/2017 Provider: [facility] Provider #: [id number] Treating Clinician: KIRK Foster-[place] Referring Physician: ISIDRO CERRATO Medicare #: [id number] Visits From SOC: Medicaid #: [id number] Onset Date Description Code Primary Diagnosis: 09/14/2016 A000.00 Subjective Comments: Initial evaluation created to initiate the electronic medical record. Please see [employer] for details. Initial Level Goals Functional Limitation Reporting Swallowing G8996 - Swallowing functional limitation, current status at therapy episode outset and at reporting intervals Current Status: CJ - At least 20 percent but less than 40 percent impaired, limited or restricted G8997 - Swallowing functional limitation, projected goal status, at therapy episode outset, at reporting intervals, and at discharge or to end reporting Goal Status: CJ - At least 20 percent but less than 40 percent impaired, limited or restricted G8998 - Swallowing functional limitation, discharge status, at discharge from therapy or to end reporting Discharge Status: CJ - At least 20 percent but less than 40 percent impaired, limited or restricted 10/13/2017 11:14:03 AM ISIDRO CERRATO Date/Time RADHA Foster Date I certify the need for these services furnished under this plan of treatment while under my care. State License #: [id number] CM:SLPPOC 1116 1115 [facility]
--- NOTE | ~2017-10-13 | SLPIE ---
[place], [place] SUPERVISOR DIAGNOSTIC INITIAL EVALUATION NAME: BENTLEY FAGAN UNIT #: [id number] ROOM: DOCTOR: ISIDRO IRIZARRY FACP, MD Speech Language Pathology Initial Evaluation Page 1 1 of Patient Name: BENTLEY FAGAN Date: 10/13/2017 11:13 AM : 1950 SOC Date: 10/13/2017 Provider: [facility] Provider #: [id number] Treating Clinician: KIRK Foster-SUPERVISOR DIAGNOSTIC Referring Physician: ISIDRO CERRATO Patient Information Address: [address] [place] [address] Physician: ISIDRO CERRATO Physician #: City, [facility], Zip: [place], [place] [address] Occupation: Unknown # of Approved Visits: 0 Gender: Female Medicaid #: [id number] Baker Second: SHELBY PORRAS Medicare #: [id number] Rehabilitation Information / History Onset Date Code Description Primary Diagnosis: 09/14/2016 A000.00 Subjective Comments: Initial evaluation created to initiate the electronic medical record. Please see [employer] for details. Rehabilitation Information / History Clinical Findings Functional Goals Functional Limitation Reporting Swallowing G8996 - Swallowing functional limitation, current status at therapy episode outset and at reporting intervals Current Status: CJ - At least 20 percent but less than 40 percent impaired, limited or restricted G8997 - Swallowing functional limitation, projected goal status, at therapy episode outset, at reporting intervals, and at discharge or to end reporting Goal Status: CJ - At least 20 percent but less than 40 percent impaired, limited or restricted G8998 - Swallowing functional limitation, discharge status, at discharge from therapy or to end reporting Discharge Status: CJ - At least 20 percent but less than 40 percent impaired, limited or restricted 10/13/2017 11:14:03 AM RADHA Foster Date/Time [place], [place] SUPERVISOR DIAGNOSTIC INITIAL EVALUATION NAME: BENTLEY FAGAN UNIT #: [id number] ROOM: DOCTOR: ISIDRO IRIZARRY FACP, MD [facility] License #: [id number] CM:SLPIE 1116 1115 [facility]
== END | disposition home or self-care (01) ==
LOC: RAD/SH 09:23
DX: R13.10 Dysphagia, unspecified (principal); C32.9 Malignant neoplasm of larynx, unspecified; D64.9 Anemia, unspecified; E03.9 Hypothyroidism, unspecified; F41.9 Anxiety disorder, unspecified; J44.9 Chronic obstructive pulmonary disease, unspecified

== ENCOUNTER 2017-11-02 19:27 | Inpatient (IN) | payer MEDICARE, MEDICAID ==
[~2017-11-02] VITALS: Ht 167.6 cm; Wt 52.6 kg
--- NOTE | ~2017-11-02 | PR ---
[place], [place] PROGRESS NOTE [id number] UNIT #: [id number] ROOM: 504 DOCTOR: NIGEL ANSARI MDSAHIL BIRTHDATE: [birth year] DOS: 11/04/2017 SUBJECTIVE: She has been noted comfortable at this time, noted with mild cough. There were no sputum expectoration. Denies symptoms of chest pain. She has been assessed by Dr. Mcclain yesterday recommended no intervention for the patient except the local active management of the skin site. She has been continued on intravenous antibiotics and remains afebrile. REVIEW OF SYSTEMS: Could not be obtained because the patient has history of dentia, extend the examination of the patient after that skin examination. OBJECTIVE: VITAL SIGNS: Normal temperature, respiratory rate 22, heart rate 84, blood pressure 120/64 and pulse oxygen saturation of the patient on 2 liters nasal cannula 98% saturation. HEENT: Examination shows head was atraumatic. Eyes nonicterus. NECK: Supple. CARDIOVASCULAR: S1, S2 is audible. LUNGS: Examination of the lungs, the patient was noted without any wheezing. Mild decreased breaths are noted with basilar crackles in the right lower lobe. ABDOMEN: Soft, nontender. EXTREMITIES: Without any acute edema. CENTRAL NERVOUS SYSTEM: No gross focal neurologic deficit. MUSCULOSKELETAL: No deformities. SKIN: No lesions or rashes. LABORATORY DATA: CBC: WBC count normal, hemoglobin 7.9, hematocrit 25.7 and platelet count were normal. IMPRESSION: 1. The patient who has been currently noted with small left lower lobe pneumonia with pleural thickening and small pleural fluid. 2. The patient with gram-negative bacteremia. The patient still has the source may relate lung other parts of the body is not clear. The followup culture was ordered for the patient is [facility], which were pending. The Gram stain for the patient, previous blood culture on admission noted gram-negative roberta, pending further results. 3. The patient with chronic oropharyngeal dysphagia. 4. History of cancer of the larynx and lung, which has been already treated noted in remission. 5. Protein calorie malnutrition. PLAN OF MANAGEMENT: The patient will be continued antibiotics for the patient at this time. Local wound care for this patient at the PEG tube site, which is already repositioned by Dr. Mcclain. Continuation of the bronchodilators, oxygen supplementation. Continue broad-spectrum intravenous antibiotic with adjustment in antibiotic will be done based on the final culture results. Other supportive therapy, plan of management, some changes noted. [place], [place] PROGRESS NOTE NAME: BENTLEY FAGAN UNIT #: [id number] ROOM: [facility] DOCTOR: SAHIL ANGUIANO MD BIRTHDATE: [birth year] SAHIL MANNING MD CM:PNTRANS 1009 [id number] SAHIL ANSARI MD 11/04/17 1027 interface
--- NOTE | ~2017-11-02 | PR ---
[place], [place] PROGRESS NOTE NAME: BENTLEY FAGAN UNIT #: [id number] ROOM: 504 DOCTOR: NIGEL ANSARI MD,SAHIL BIRTHDATE: [birth year] DOS: 11/06/2017 SUBJECTIVE: The patient noted comfortable at this time, resting in the bed without any acute distress. She has been noted with gradual reduction of cough. There were no symptoms of chest pain or hemoptysis. Oral symptoms have been improving. Denies any chest pain today, which were reported by the patient just in the left chest. OBJECTIVE: VITAL SIGNS: Normal temperature, respiratory rate 18, heart rate 76, blood pressure 136/70, pulse oxygen saturation 2 liters nasal canula 99% saturation. HEENT: Head was atraumatic. Eyes nonicterus. NECK: Supple. CARDIOVASCULAR: S1, S2 audible. LUNGS: The patient noted without any wheezing or crackles at the present time. ABDOMEN: Soft, nontender. Bowel sounds present. EXTREMITIES: The patient noted without any acute edema. IMPRESSION: 1. Resolving acute pneumonia. The patient's left lower lung, most likely from aspiration. 2. Gram-negative bacilli bacteremia, which was noted, exact source was unknown. The urine culture was noted clear. Sputum culture was also noted with yeast. The surveillance culture, which was done later on for the patient from the [facility] noted no bacterial growth. The culture was taken from the [facility]. PLAN OF MANAGEMENT: No change in plan of management. Obtain a chest x-ray, PA and lateral view tomorrow morning. The patient reassessed the progression of pneumonia prior to discharge planning. The lung show the source of bacteremia. The patient's [facility] at [facility] as [facility]. SAHIL MANNING MD CM:PNTRANS 1416 SAHIL ANSARI MD 11/06/17 7554 interface
--- NOTE | ~2017-11-02 | PR ---
[place], [place] PROGRESS NOTE NAME: BENTLEY FAGAN UNIT #: [id number] ROOM: 504 DOCTOR: SAHIL ANGUIANO MD BIRTHDATE: [birth year] DOS: 11/08/2017 PULMONARY PROGRESS NOTE SUBJECTIVE: The patient was noted comfortable, sitting on the bed, eating breakfast without any acute distress this morning. They have not been noticing symptoms of chest pain or hemoptysis this morning. Coughing has been noted minimal without any sputum expectoration. The patient has been receiving the antibiotics. OBJECTIVE: VITAL SIGNS: This morning noted as normal temperature. The respiratory rate 18, heart rate 79, blood pressure 141/61 at 8 a.m. Pulse oxygen saturation of the patient recorded as 2-1/2 liters nasal cannula is 90-95% saturation. HEENT: No new change. NECK: Supple. CARDIOVASCULAR: S1, S2 audible. LUNGS: The patient was noted without any wheeze or crackles at the present time. ABDOMEN: Soft, nontender. Bowel sounds present. EXTREMITIES: Without any acute edema. LABORATORY DATA: Chest x-ray that was done yesterday shows improved in infiltration of the lower lung. The surveillance culture which was obtained from the Medi[facility] was noted, no bacterial growth. IMPRESSION: 1. Resolution of Klebsiella pneumoniae bacteremia. Again, the source of the patient was not very clear, maybe suspected from the lung, medically treated and resolved with antibiotics. 2. Resolving acute pneumonia, gram-negative, most likely from aspiration. 3. History of lung cancer and the laryngeal cancer noted during the admission. PLAN OF MANAGEMENT: The patient could be discharged home whenever desired from Pulmonary standpoint, outpatient followup was suggested. Other supportive therapy, plan of management care and plan of treatment. [place], [place] PROGRESS NOTE NAME: BENTLEY FAGAN UNIT #: [id number] ROOM: 504 DOCTOR: SAHIL ANGUIANO MD BIRTHDATE: [birth year] SAHIL MANNING MD CM:PNTRANS [id number] SAHIL ANSARI MD 11/15/17 1151 interface
--- NOTE | ~2017-11-02 | CON ---
[place], [place] REPORT OF CONSULTATION NAME: BENTLEY FAGAN UNIT #: [id number] ROOM: 504 DOCTOR: LIBRA HUERTA MD BIRTHDATE: [birth year] DOS: 11/03/2017 GASTROENDOSCOPIC CONSULTATION HISTORY OF PRESENT ILLNESS: This is a 67-year-old patient who has presented with shortness of breath, dysphagia. The patient with an existing PEG tube, which is leaking externally and large volume secretions around the PEG tube was noticed. This was addressed at the bedside after aseptic preparation of the site. Readjustment of the dish externally was undertaken and patency of the tube was assured and functionality of the PEG tube was recorded. PAST MEDICAL HISTORY: This patient has a past medical history of protein calorie malnutrition, COPD, end-stage lung, anxiety, unstable gait, oropharyngeal dysphagia, radiation complication. PAST SURGICAL HISTORY: Bronchoscopy, appendectomy, hernia repairs, laryngoscopy, tonsillectomy, adenoidectomy. SOCIAL HISTORY: Smoker in the past. Nonalcohol consumer. FAMILY HISTORY: Noncontributory. ALLERGIES: To no known medications. MEDICATIONS: Medication at home reviewed including oxygen therapy. REVIEW OF SYSTEMS: HEENT: Denies double vision, blurred vision. RESPIRATORY: Admits to shortness of breath. CARDIOVASCULAR: Denies acute chest pain. DIGESTIVE SYSTEM: Dysphagia that requires PEG tube support. NEUROMUSCULOSKELETAL: No muscle wasting, no tremens. PHYSICAL EXAMINATION: VITAL SIGNS: Extremely frail patient. HEENT: Head normocephalic, nontraumatic. Mouth and buccal mucosa benign. NECK: Looks under the effect of radiation, narrow and muscle wasting was noticed. LUNGS: Decreased air entry bilaterally was appreciated. CARDIAC: Normal sinus rhythm, no gallop, no murmur. ABDOMEN: Soft. No hepato-organomegaly. Bowel sounds present. Malfunctioning PEG in the abdomen was noticed. EXTREMITIES: No cyanosis, no pedal edema. NEUROLOGIC: Alert, oriented to time, place, person. Sensory, motor intact. Cranial nerves 2-12 intact. LABORATORY DATA: Her blood work - lactic acid 0.7. CBC: White blood cell 11, H and H of 8 and 28. Microcytic indices noticed. Chest x-ray, left lower lobe pneumonia is noticed. CBC differential shows drop in H and H of 7.5 and 27. B12, folate was normal. Vitamin D was low at 13 level and we are taking care [place], [place] REPORT OF CONSULTATION NAME: BENTLEY FAGAN UNIT #: [id number] ROOM: 504 DOCTOR: DEANNA MARTINS,LIBRA BIRTHDATE: [birth year] of, magnesium 2.2 and phosphorus 3.5. Thyroid studies being addressed. Blood culture, gram-negative bacilli, preliminary report and followup is being done by primary team. IMPRESSION: Malfunctioning leaking PEG at the bedside has been addressed. The drainage of "pus around the PEG tube was mucousy, secretions around the ostomy site of it and it was not pathologic. PLAN: I have asked the nurse to utilize Neosporin around the ostomy site with 1 layer of gauze for management. The cause for her dysphagia has been laryngeal carcinoma, which has already been taken care of and as a result, dysphagia and protein-calorie malnutrition. LIBRA HUERTA MD CM:CONSTR:REPORT OF CONSULTATION 1753 11/04/17 0552 interface
--- NOTE | ~2017-11-02 | CON ---
[place], [place] REPORT OF CONSULTATION NAME: BENTLEY FAGAN UNIT #: [id number] ROOM: 504 DOCTOR: SAHIL ANGUIANO MD BIRTHDATE: [birth year] DOS: 11/03/2017 PULMONARY CONSULTATION EVALUATION MANAGEMENT CONSULTATION ORDERED BY: Hospitalist Service. REASON FOR CONSULTATION: Assessment of current acute respiratory symptom, coughing and possibility of acute pneumonia. HISTORY OF PRESENT ILLNESS: This is a 67-year-old white female patient who has been noted with history of past, recurrent aspiration pneumonia with chronic oropharyngeal dysphagia with protein-calorie malnutrition and history of lung cancer, laryngeal cancer. She presented to the Emergency Room as the patient noted significant pain. According to the patient with use of the current feeding, the pain might be occurring because of the current PEG tube, which may have been displaced. The patient was assessed and currently admitted to the hospital for further medical management. She was also noted with symptoms of fatigue as well and noted with cough with sputum expectoration intermittently described yellowish in color by the nursing staff. The patient was noted with a history of dementia, unable to give me any history. The patient presented to the Emergency Room, chest x-ray done reported with finding of left lower lobe pneumonia. The patient is currently comfortably resting at this time of assessment. She is n.p.o. past midnight for assessment of current malfunction of the PEG tube and in fact a possibility of infection at the PEG site as well in the skin. REVIEW OF SYSTEMS: Could not be completed since the patient is noted with history of dementia and unable to give me any history accurately. PAST MEDICAL HISTORY: 1. Known for COPD. 2. History of severe protein-calorie malnutrition, which has been treated with oral modified diet for dysphagia diet and the nutrition support, which is provided from the PEG tube since the PEG tube inserted in 08/2017. 3. History of treated lung cancer, right lower lobe which were non-small cell and noted in remission so far. 4. History of laryngeal cancer, which has been treated as noted in remission as well. 5. Generalized anxiety disorder. 6. Oropharyngeal dysphagia. 7. Past intubation of mechanical ventilation for the respiratory failure management. 8. History of recurrent aspiration pneumonia gram-negative and gram-positive infections. 9. Chronic hypoxic respiratory failure. 10. Chronic hoarseness secondary to the laryngeal cancer. PAST SURGICAL HISTORY: 1. Hiatal hernia. 2. Therapeutic bronchoscopy last was done in 08/2017. [place], [place] REPORT OF CONSULTATION NAME: BENTLEY FAGAN UNIT #: [id number] ROOM: [facility] DOCTOR: NIGEL ANSARI MD,SAHIL BIRTHDATE: [birth year] 3. Direct laryngoscopy for the biopsy of the laryngeal mass. 4. PEG tube insertion with subsequent removal and reinsertion done on 09/17/2017. 5. CT-guided needle aspiration biopsy of the right lower lobe nodule as well. SOCIAL HISTORY: The patient lives at home, has 2 children, has not been reported any history of alcohol use or any illicit drug use. Tobacco use noted from age of [age] years old, pack of cigarettes per day until 2016. FAMILY HISTORY: Unknown. CURRENT MEDICATIONS: Administered for this hospitalization noted, DuoNeb, Protonix, Levaquin and vancomycin as well as IV Zosyn. DRUG ALLERGIES: The patient noted no known drug allergies. PHYSICAL EXAMINATION: GENERAL: This is a 67-year-old female who has been currently noted comfortably lying in the bed. VITAL SIGNS: Height of 5 feet 6 inches, weight 116 pounds recorded. BMI for this patient was not calculated. The temperature noted as 100 degrees Fahrenheit. The respiratory rate is 16-20. Heart rate of 71-101. The blood pressure was noted as 135/60-115/63. HEENT: Examination shows head was atraumatic. Eyes were nonicterus. NECK: Supple. CARDIOVASCULAR: S1, S2 is audible. LUNGS: The patient was noted without any wheezing heard at the present time. The crackles noted in the lung bases. ABDOMEN: Soft. PEG tube in place with some redness around the PEG tube site. EXTREMITIES: The patient noted without any acute edema, clubbing or cyanosis. CENTRAL NERVOUS SYSTEM: Cranial nerves 2-12 intact. MUSCULOSKELETAL: The patient was noted without any acute major deformities. SKIN: Visible skin, no lesions or rashes. CENTRAL NERVOUS SYSTEM: Grossly nonfocal, the exam is limited. LABORATORY DATA: CBC that was done yesterday, WBC count 11.4, hemoglobin 8.3, and platelet count was normal. The CMP of 11/02/2017, BUN normal, creatinine was normal. Albumin 2.7. CBC of this morning: WBC count normal, hemoglobin 7.5, hematocrit 27.0, platelet count normal. Blood culture in the Emergency Room one set for the patient noted as anaerobic culture, gram-negative bacilli. Other cultures results were pending. Vitamin D level noted as decreased. The chest x-ray, PA and lateral that was done yesterday in the Emergency Room was noted with mild elevation of the left hemidiaphragm was noted with reported as infiltration in the left lung, but I am not convinced about that. MediPort noted in place. IMPRESSION: 1. The patient will be currently admitted to the hospital noted gram-negative bacilli bacteremia, source of origin gram-negative bacilli, not very clear at this time. [place], [place] REPORT OF CONSULTATION NAME: BENTLEY FAGAN UNIT #: [id number] ROOM: [facility] DOCTOR: SAHIL ANGUIANO MD BIRTHDATE: [birth year] 2. Questionable pneumonia, left lower lobe, not very convincing. 3. The patient with malfunction of the PEG tube and possibility of infection at the PEG tube site as well. 4. History of known laryngeal cancer and the lung cancer were noted in remission. 5. Protein-calorie malnutrition. PLAN OF MANAGEMENT: Order another chest x-ray, PA and lateral to reassess the progression of the infiltration at present. Continuation of the bronchodilators and oxygen supplementation. Continue current antibiotic with the reduction of the antibiotic the patient's Bactrim or changes to be made after the final culture results of the blood. Order the urine culture as well to assess the possibility of a source of infection. Usual care, the plan of management and treatment. Additional treatment changes will be ordered based on progression of illness. Awaiting consultation by Dr. Mcclain for the current problem and difficulty with the PEG tube. SAHIL MANNING MD CM:CONSTR:REPORT OF CONSULTATION 1209 11/04/17 0312 interface
--- NOTE | ~2017-11-02 | PR ---
[place], [place] PROGRESS NOTE NAME: BENTLEY FAGAN UNIT #: [id number] ROOM: 504 DOCTOR: SAHIL ANGUIANO MD BIRTHDATE: [birth year] DOS: 11/07/2017 PULMONARY PROGRESS NOTE SUBJECTIVE: The patient noted comfortable. Denies chest pain. Coughing has been decreasing. There was no sputum expectoration. Denies symptoms of chest pain or any hemoptysis. Denies symptoms of fever or chills. The patient was eating her food orally and nutrition support from the PEG tube was also continued for severe protein-calorie malnutrition. OBJECTIVE: VITAL SIGNS: Normal temperature. The respiratory rate 18, heart rate 90, blood pressure 151/80. Pulse oxygen saturation of the patient recorded on 2 liters nasal cannula is 97% saturation. HEENT: Shows head was atraumatic. Eyes nonicterus. NECK: Supple. CARDIOVASCULAR: S1, S2 audible. LUNGS: The patient was noted without any wheeze or crackles. ABDOMEN: Soft, nontender. Bowel sounds present. EXTREMITIES: Without any acute edema. LABORATORY DATA: Chest x-ray done this morning was reviewed shows improvement in infiltration of the left lower lobe. Very small bilateral pleural effusions were seen. IMPRESSION: The patient has been currently noted with resolving acute pneumonia in the left lower lobe, resolved bacteremia gram-negative, the source was unknown. PLAN OF THERAPY: Completion of the antibiotic of the patient mostly by tomorrow and consideration to discharge the patient on oral medication will be recommended. Continuation of other supportive therapy, plan of management, care plan and therapy. Usual care, other plan of management and treatments. [place], [place] PROGRESS NOTE NAME: ANTHONY FAGANALISOFI Solis UNIT #: [id number] ROOM: 504 DOCTOR: SAHIL ANGUIANO MD BIRTHDATE: [birth year] SAHIL MANNING MD CM:PNTRANS [id number] SAHIL ANSARI MD 11/07/17 3606 interface
--- NOTE | ~2017-11-02 | PR ---
[place], [place] PROGRESS NOTE [id number] UNIT #: [id number] ROOM: 504 DOCTOR: NIGEL ANSARI MDSAHIL BIRTHDATE: [birth year] DOS: 11/05/2017 SUBJECTIVE: She was noted comfortable at this time, resting on the bed. She has not been reported any symptoms of chest pain or any abdominal pain. The patient has been noted some cough that occurred and also complains of pain with that. Denies symptoms of hemoptysis. Denies symptoms of fever or chills. OBJECTIVE: VITAL SIGNS: For the patient, which are recorded showed normal temperature, respiratory rate 20, heart rate 84, blood pressure 130/56. Pulse oxygen saturation on 2 liters 99% saturation. HEENT: No acute change. NECK: Supple. CARDIOVASCULAR: S1, S2 audible. LUNGS: The patient mild crackles noted in the left lung. There was no wheezing. ABDOMEN: Soft, nontender. EXTREMITIES: Without any acute edema. LABORATORY DATA: Cultured the sputum 11/03/2017, patient noted moderate growth of yeast. Final culture results were pending. CBC this morning, hemoglobin 6.9 and 25.1 and hematocrit normal, platelet count normal, 90% segmented neutrophils. BMP normal BUN and creatinine. Blood culture noted positive for E. coli noted, which is resistant. CBC for the patient were noted sensitive to Augmentin. Imipenem and other antibiotics resistance was also noted to the fluoroquinolones. IMPRESSION: 1. The patient has been noted with E. Escherichia coli bacteremia. The patient's source of infection was unknown. The surveillance culture for the patient, which was done later. The patient was noted without any bacterial growth. The urinalysis was noted with 1+ leukocyte esterase. Urine culture for the patient was so far noted no bacterial growth from 11/04/2017. 2. . Acute pneumonia, left lower lobe with chronic obstructive pulmonary disease and acute anemia, which are noted 4progressive, etiology unclear. Rule out gastrointestinal bleeding. 2. History of known lung cancer and the laryngeal cancer, bone known in remission. PLAN OF MANAGEMENT: No changes in plan of care at this time. Continue the patient's current therapy, plan of management and care. Usual care. Supportive therapy, plan of management and care. [place], [place] PROGRESS NOTE NAME: BENTLEY FAGAN UNIT #: [id number] ROOM: 504 DOCTOR: SAHIL ANGUIANO MD BIRTHDATE: [birth year] SAHIL MANNING MD CM:GRAHAM [id number] SAHIL ANSARI MD 11/05/17 1959 interface
[~2017-11-02 19:27] MED LIST changes: -Ipratropium Brom3 ML NEB; -VITAMIN D5000 UNI1 PO; -[UNRECOGNIZED DRUG - OTHER] PEG
[2017-11-02 19:36] VITALS: BP 120/70
[2017-11-02 20:02] LABS: BASO % 0.2 % (0.0-1.0); HEMATOCRIT 28.6 % (37.0-47.0); HEMOGLOBIN 8.3 g/dl (12.0-16.0); LYMPH # 0.5 10*3/uL (1.3-4.4); LYMPH % 4.7 % (27.0-41.0); MEAN CELL VOLUME 85.6 fl (81.0-99.0); MEAN CORPUSCULAR HGB 24.9 pg (27.0-31.0); MEAN PLATELET VOLUME 10.3 fl (9.6-12.3); MONO # 1.4 10*3/uL (0.1-1.0); NEUT # 9.4 10*3/uL (2.3-7.9); NEUT % 82.7 % (47.0-73.0); PLATELET COUNT AUTOMATED 360 10*3/uL (130-400); RED BLOOD COUNT 3.34 10*6/uL (4.10-5.10); RED CELL DISTRI WIDTH 17.1 % (0-14.5); WHITE BLOOD COUNT 11.4 10*3/uL (4.8-10.8)
[2017-11-02 20:19] LABS: ALBUMIN 2.7 gm/dl (3.1-4.5); ALKALINE PHOSPHATASE 56 U/L (45-117); BUN 17 mg/dl (7-24); CHLORIDE 104 mmol/L (98-107); CREATININE 0.97 mg/dL (0.55-1.02); POTASSIUM 3.8 mmol/L (3.5-5.1); SGOT/AST 9 IU/L (3-35); SGPT/ALT 9 U/L (12-78); SODIUM 141 mmol/L (136-145); TOTAL PROTEIN 6.7 gm/dL (6.4-8.2)
[2017-11-02 20:20] LABS: TROPONIN I < 0.015 ng/ml (<0.045)
[2017-11-02 21:49] VITALS: BP 118/79
[2017-11-02 22:15] VITALS: BP 135/60
[2017-11-02] MEDS ORDERED: [UNRECOGNIZED DRUG - OTHER] PEG (22:48)
[2017-11-02] MEDS ORDERED: OXYGEN NAS (22:55)
[2017-11-03 07:27] LABS: BASO % 0.2 % (0.0-1.0); EOS % 0.3 % (1.0-4.0); HEMOGLOBIN 7.5 g/dl (12.0-16.0); LYMPH # 0.5 10*3/uL (1.3-4.4); LYMPH % 5.2 % (27.0-41.0); MEAN CELL VOLUME 87.9 fl (81.0-99.0); MEAN CORPUSCULAR HGB 24.4 pg (27.0-31.0); MEAN CORPUSCULAR HGB CONC 27.8 g/dl (33.0-37.0); MEAN PLATELET VOLUME 10.5 fl (9.6-12.3); MONO % 11.9 % (3.0-9.0); NEUT % 81.9 % (47.0-73.0); PLATELET COUNT AUTOMATED 321 10*3/uL (130-400); RED BLOOD COUNT 3.07 10*6/uL (4.10-5.10); RED CELL DISTRI WIDTH 17.2 % (0-14.5); WHITE BLOOD COUNT 8.6 10*3/uL (4.8-10.8)
[2017-11-03 07:49] LABS: BUN 15 mg/dl (7-24); CHLORIDE 106 mmol/L (98-107); CHOLESTEROL 91 mg/dL (<200); FREE T4 1.96 ng/dl (0.76-1.46); HDL CHOLESTEROL 30 mg/dl (40-60); LDL CHOLESTEROL 42 mg/dL (9-159); PHOSPHOROUS 3.5 mg/dL (2.5-4.9); POTASSIUM 3.7 mmol/L (3.5-5.1); SODIUM 144 mmol/L (136-145); TRIGLYCERIDES 96 mg/dl (<150); VLDL CHOLESTEROL 19 mg/dL (6-40)
[2017-11-03 08:00] VITALS: BP 115/53
[2017-11-03 08:44] LABS: VITAMIN D, 25-HYDROXY 13.3 ng/mL (30-100)
[2017-11-03 12:00] VITALS: BP 131/56
[2017-11-03 16:00] VITALS: BP 99/56
[2017-11-03 20:00] VITALS: BP 115/46
[2017-11-04] VITALS: BP 113/52
[2017-11-04 06:43] LABS: BASO % 0.2 % (0.0-1.0); EOS % 0.1 % (1.0-4.0); HEMATOCRIT 25.7 % (37.0-47.0); HEMOGLOBIN 7.1 g/dl (12.0-16.0); LYMPH # 0.3 10*3/uL (1.3-4.4); LYMPH % 2.7 % (27.0-41.0); MEAN CELL VOLUME 88.6 fl (81.0-99.0); MEAN CORPUSCULAR HGB 24.5 pg (27.0-31.0); MEAN CORPUSCULAR HGB CONC 27.6 g/dl (33.0-37.0); MEAN PLATELET VOLUME 10.6 fl (9.6-12.3); MONO # 0.8 10*3/uL (0.1-1.0); MONO % 7.3 % (3.0-9.0); NEUT # 9.6 10*3/uL (2.3-7.9); NEUT % 89.4 % (47.0-73.0); PLATELET COUNT AUTOMATED 334 10*3/uL (130-400); RED CELL DISTRI WIDTH 17.1 % (0-14.5); WHITE BLOOD COUNT 10.8 10*3/uL (4.8-10.8)
[2017-11-04 06:56] LABS: BUN 12 mg/dl (7-24); CHLORIDE 107 mmol/L (98-107); CREATININE 0.92 mg/dL (0.55-1.02); POTASSIUM 3.2 mmol/L (3.5-5.1); SODIUM 143 mmol/L (136-145)
[2017-11-04 08:00] VITALS: BP 120/64
[2017-11-04 10:55] LABS: BILIRUBIN NEGATIVE (NEGATIVE); BLOOD 2+ (NEGATIVE); CLARITY CLOUDY (CLEAR); COLOR YELLOW (YELLOW); GLUCOSE NEGATIVE (NEGATIVE); KETONE NEGATIVE (NEGATIVE); LEUKO ESTERASE 1+ (NEGATIVE); NITRITE NEGATIVE (NEGATIVE); PH 5.5 (5.0-9.0); UROBILINOGEN 0.2 E.U./dl (0.2-1.0)
[2017-11-04 11:11] LABS: BACTERIA 3+; RBC 16-20 rbc/hpf (0-2); WBC 41-50 wbc/hpf (0-5); YEAST 1+
[2017-11-04 12:00] VITALS: BP 109/51
[2017-11-04 16:00] VITALS: BP 133/58
[2017-11-04 20:00] VITALS: BP 135/63
[2017-11-05] VITALS (10 sets, daily range): BP systolic 119–154; BP diastolic 5–87
[2017-11-05 06:12] LABS: HEMATOCRIT 25.1 % (37.0-47.0); HEMOGLOBIN 6.9 g/dl (12.0-16.0); MEAN CELL VOLUME 88.1 fl (81.0-99.0); MEAN CORPUSCULAR HGB 24.2 pg (27.0-31.0); MEAN CORPUSCULAR HGB CONC 27.5 g/dl (33.0-37.0); MEAN PLATELET VOLUME 10.6 fl (9.6-12.3); PLATELET COUNT AUTOMATED 355 10*3/uL (130-400); RED BLOOD COUNT 2.85 10*6/uL (4.10-5.10); RED CELL DISTRI WIDTH 17.1 % (0-14.5); WHITE BLOOD COUNT 10.3 10*3/uL (4.8-10.8)
[2017-11-05 06:30] LABS: BUN 8 mg/dl (7-24); CHLORIDE 108 mmol/L (98-107); CREATININE 0.79 mg/dL (0.55-1.02); POTASSIUM 3.9 mmol/L (3.5-5.1); SODIUM 145 mmol/L (136-145)
[2017-11-05 07:08] LABS: PLATELET SUFFICIENCY NORMAL (NORMAL); TOTAL CELLS COUNTED 100 #CELLS
[2017-11-05 07:09] LABS: OVALOCYTES FEW
[2017-11-05 16:11] LABS: HEMATOCRIT 28.7 % (37.0-47.0); HEMOGLOBIN 8.4 g/dl (12.0-16.0)
[2017-11-06] VITALS: BP 146/74
[2017-11-06 06:20] LABS: BASO % 0.2 % (0.0-1.0); EOS # 0.1 10*3/uL (0.0-0.4); HEMOGLOBIN 8.4 g/dl (12.0-16.0); LYMPH # 0.4 10*3/uL (1.3-4.4); LYMPH % 4.1 % (27.0-41.0); MEAN CELL VOLUME 87.6 fl (81.0-99.0); MEAN CORPUSCULAR HGB 25.4 pg (27.0-31.0); MEAN PLATELET VOLUME 10.9 fl (9.6-12.3); MONO # 0.6 10*3/uL (0.1-1.0); MONO % 5.5 % (3.0-9.0); NEUT # 9.4 10*3/uL (2.3-7.9); NEUT % 88.6 % (47.0-73.0); PLATELET COUNT AUTOMATED 382 10*3/uL (130-400); RED BLOOD COUNT 3.31 10*6/uL (4.10-5.10); RED CELL DISTRI WIDTH 16.7 % (0-14.5); WHITE BLOOD COUNT 10.6 10*3/uL (4.8-10.8)
[2017-11-06 06:42] LABS: BUN 9 mg/dl (7-24); CHLORIDE 108 mmol/L (98-107); CREATININE 0.68 mg/dL (0.55-1.02); POTASSIUM 3.7 mmol/L (3.5-5.1); SODIUM 145 mmol/L (136-145)
[2017-11-06 08:00] VITALS: BP 142/70
[2017-11-06 12:00] VITALS: BP 136/70
[2017-11-06 16:00] VITALS: BP 144/74
[2017-11-06 20:00] VITALS: BP 145/62
[2017-11-07] VITALS: BP 146/67
[2017-11-07 04:15] VITALS: BP 150/67
[2017-11-07 06:02] LABS: BASO % 0.3 % (0.0-1.0); EOS # 0.1 10*3/uL (0.0-0.4); EOS % 1.4 % (1.0-4.0); HEMATOCRIT 29.7 % (37.0-47.0); HEMOGLOBIN 8.5 g/dl (12.0-16.0); LYMPH # 0.6 10*3/uL (1.3-4.4); MEAN CELL VOLUME 89.2 fl (81.0-99.0); MEAN CORPUSCULAR HGB 25.5 pg (27.0-31.0); MEAN CORPUSCULAR HGB CONC 28.6 g/dl (33.0-37.0); MEAN PLATELET VOLUME 10.4 fl (9.6-12.3); MONO # 0.6 10*3/uL (0.1-1.0); MONO % 6.5 % (3.0-9.0); NEUT # 7.4 10*3/uL (2.3-7.9); NEUT % 84.2 % (47.0-73.0); PLATELET COUNT AUTOMATED 364 10*3/uL (130-400); RED BLOOD COUNT 3.33 10*6/uL (4.10-5.10); WHITE BLOOD COUNT 8.7 10*3/uL (4.8-10.8)
[2017-11-07 06:30] LABS: BUN 13 mg/dl (7-24); CHLORIDE 106 mmol/L (98-107); POTASSIUM 4.1 mmol/L (3.5-5.1); SODIUM 145 mmol/L (136-145)
[2017-11-07 08:00] VITALS: BP 162/81
[2017-11-07 12:00] VITALS: BP 151/80
[2017-11-07 16:00] VITALS: BP 153/68
[2017-11-07 19:58] VITALS: BP 148/70
[2017-11-08] VITALS: BP 158/68
[2017-11-08 08:00] VITALS: BP 141/61
[2017-11-08] MEDS ORDERED: LEVAQUIN750 M1 PO (09:26)
[2017-11-08] MEDS ORDERED: VITAMIN D5000 UNI1 PO (09:26)
[2017-11-08] MEDS ORDERED: Ipratropium Brom3 ML NEB (09:31)
[2017-11-08 12:00] VITALS: BP 136/62
[2017-11-19] MEDS ORDERED: PANTOPRAZOLE SO40 MG PO (23:07)
== END 2017-11-08 10:23 | disposition home health service (06) | DRG 393 ==
LOC: ED 19:27 → EDHOLD 21:16 → 5E 21:16
PROVIDERS: Family Medicine; Internal Medicine; Internal Medicine Critical Care Medicine; Nurse Practitioner Family
PROC: 30233N1 Transfusion of Nonautologous Red Blood Cells into Peripheral Vein, Percutaneous Approach (ICD-10-PCS; principal; 2017-11-05)
DX: K94.23 Gastrostomy malfunction (principal); E43 Unspecified severe protein-calorie malnutrition; J96.10 Chronic respiratory failure, unspecified whether with hypoxia or hypercapnia; J18.1 Lobar pneumonia, unspecified organism; Z99.81 Dependence on supplemental oxygen; C32.9 Malignant neoplasm of larynx, unspecified; R13.12 Dysphagia, oropharyngeal phase; Z68.43 Body mass index [BMI] 50.0-59.9, adult; Y83.8 Other surgical procedures as the cause of abnormal reaction of the patient, or of later complication, without mention of misadventure at the time of the procedure; F03.90 Unspecified dementia, unspecified severity, without behavioral disturbance, psychotic disturbance, mood disturbance, and anxiety; E83.41 Hypermagnesemia; B96.1 Klebsiella pneumoniae [K. pneumoniae] as the cause of diseases classified elsewhere; B96.20 Unspecified Escherichia coli [E. coli] as the cause of diseases classified elsewhere; J44.9 Chronic obstructive pulmonary disease, unspecified; R00.0 Tachycardia, unspecified; D64.9 Anemia, unspecified; F41.1 Generalized anxiety disorder; D50.9 Iron deficiency anemia, unspecified; E03.9 Hypothyroidism, unspecified; Z87.01 Personal history of pneumonia (recurrent); Z92.3 Personal history of irradiation; Z87.440 Personal history of urinary (tract) infections; Z90.49 Acquired absence of other specified parts of digestive tract; Z87.891 Personal history of nicotine dependence; Z82.49 Family history of ischemic heart disease and other diseases of the circulatory system; Z86.14 Personal history of Methicillin resistant Staphylococcus aureus infection; Z79.899 Other long term (current) drug therapy; Z85.118 Personal history of other malignant neoplasm of bronchus and lung; Y92.89 Other specified places as the place of occurrence of the external cause

== ENCOUNTER 2017-11-26 14:30 | Inpatient (IN) | payer OTHER, MEDICARE ==
[~2017-11-26] VITALS: Ht 165.1 cm; Wt 47.2 kg
[~2017-11-26 14:30] MED LIST changes: +Ipratropium Brom3 ML NEB; +PANTOPRAZOLE SO40 MG PO; +VITAMIN D5000 UNI1 PO; +[UNRECOGNIZED DRUG - OTHER] PEG
[2017-11-26 14:44] VITALS: BP 130/56
[2017-11-26 20:00] VITALS: BP 157/79
[2017-11-27] VITALS: BP 128/48
== END 2017-11-27 06:20 | disposition expired | DRG 190 ==
LOC: ICCU 14:30 → 4E 16:49
DX: J44.0 Chronic obstructive pulmonary disease with (acute) lower respiratory infection (principal); J18.9 Pneumonia, unspecified organism; E46 Unspecified protein-calorie malnutrition; I47.1 Supraventricular tachycardia; Z68.1 Body mass index [BMI] 19.9 or less, adult; J44.1 Chronic obstructive pulmonary disease with (acute) exacerbation; R62.7 Adult failure to thrive; E03.9 Hypothyroidism, unspecified; F41.9 Anxiety disorder, unspecified; E55.9 Vitamin D deficiency, unspecified; R73.03 Prediabetes; E61.1 Iron deficiency